=== PATIENT | female | born 1975 | race Caucasian/White ===

== ENCOUNTER 2020-11-11 11:58 | Emergency (ER) | payer OTHER, SELFPAY ==
--- NOTE | ~2020-11-11 | XR_ITS ---
EXAMINATION: XR chest 2V EXAM DATE: 11/11/2020 12:45 INDICATION: Cough, chest tightness. TECHNIQUE: Frontal and lateral projections of the chest obtained and reviewed. There is no prior santosh dy for comparison. FINDINGS: The lungs are clear. There are no pleural effusions. The cardiomediastinal silhouette is within normal limits. There is no pneumothorax suspected. The bones and soft tissues are unremarkab le. IMPRESSION: No acute cardiopulmonary findings. Reviewed, dictated and finalized at location B.
[2020-11-11 12:10] VITALS: BP 128/86; PULSE 83; RESP 16; TEMP 36.2; O2SAT 100
--- NOTE | 2020-11-11 12:38 | ED.URI ---
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 Patient states she has a history longer 10-day history of nasal congestion, PND and with scratchy throat. This was followed by a couple days of nonproductive cough associated with hoarseness, chills /measured 100.2 temperature. No high fever, sputum changes, wheeze, calf pain/edema; no loss of taste/smell, vomiting/diarrhea, S OB, wheezing, nor CP but she has tightness [with coughing]. 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 [id number] testing for strep, RSV, rapid Covid antigen, and influenza are negative. Related Data Home Medications Medication Instructions Recorded Confirmed omeprazole 40 mg PO DAILY 11/11/20 11/11/20 Allergies Allergy/AdvReac Type Severity Reaction Status Date / Time phenobarbital Allergy Unknown Verified 11/11/20 12:21 terbutaline [From Brethine] Allergy Other Verified 11/11/20 12:21 Review of Systems Review of Systems: General/Constitutional: No weight loss,fever Eyes: N0: Redness,discharge Ears/Nose/Throat: No: Epistaxis,ear discharge Respiratory: Denies: Hemoptysis Gastrointestinal: No Vomiting, Bleeding-rectal Skin: No Lumps, eruption Neurologic: No Focal Weakness,Sz Hematologic: Denies: Petechiae/Purpura PMFSH Comments At time of signature, agree with nursing past medical, surgical, and social history. There is no relevant family history pertinent to the presenting complaint Exam Narrative: General Appearance: Well appearing, Well nourished, Conjunctiva clear Ears: Auditory canal normal, TM normal Nose: Rhinorrhea, Mucousal erythema Mouth/Throat: MM moist, Uvula midline, Pharyngeal erythema, Supple, No adenopathy Respiratory: No respiratory distress, Breath sounds equal, Clear to auscultation Cardiovascular: RRR, No JVD Musculoskeletal: Non tender, Normal strength; Warm, Dry, multiple tattoos Neurological: A&O x3, Normal affect Course Course Emergency Course: Films visualized, interpreted by radiologist, agree, normal see report Vital Signs Vital signs: Vital Signs Temperature 97.1 F L 11/11/20 12:10 Pulse Rate 83 11/11/20 12:10 Respiratory Rate 16 11/11/20 12:10 Blood Pressure 128/86 11/11/20 12:10 Pulse Oximetry 100 11/11/20 12:10 Temperature 97.1 F L 11/11/20 12:10 Pulse Rate 83 11/11/20 12:10 Respiratory Rate 16 11/11/20 12:10 Blood Pressure 128/86 11/11/20 12:10 Pulse Oximetry 100 11/11/20 12:10 MDM - URI/Sore Throat Lab Data Labs: Lab Results 11/11/20 Range/Units 12:39 POC SARS CoV-2 Ag Negative (Negative) Discharge Plan Discharge Clinical Impression: Cough Patient Disposition: Home, Self-Care Condition: Stable Instructions: Acute Bronchitis (ED) Prescriptions: New prednisone 20 mg tablet 60 mg PO DAILY Qty: 15 RF: 0 benzonatate [Tessalon Perles] 100 mg capsule 100 mg PO TID Qty: 20 RF: 1 albuterol sulfate [Ventolin HFA] 90 mcg/actuation HFA aerosol inhaler 2 puff INHALATION QID PRN (Reason: shortness of breath or wheezing) Qty: 8.5 RF: 1 doxycycline hyclate 100 mg tablet 100 mg PO BID Qty: 14 RF: 0 montelukast [Singulair] 10 mg tablet 10 mg PO QPM Qty: 20 RF: 2 No Action omeprazole 40 mg capsule,delayed release(DR/EC) 40 mg PO DAILY RF: 0 Other Ambulatory Orders: SARS-CoV-2 RNA, Qual RT-PCR (Routine) Location: Determined by Patient Ordered By: Jeffrey Crespo Follow-up/Referrals: [facility] [place] [place], [Primary Care Provider] - Stand Alone Forms: Work/School Release IP
== END 2020-11-11 13:15 | disposition home or self-care (01) ==
PROVIDERS: Emergency Provider Emergency Medicine
DX: R05 Cough (principal); Z20.822 Contact with and (suspected) exposure to COVID-19; K21.9 Gastro-esophageal reflux disease without esophagitis
CPT/HCPCS: 71046; 87426; 99213; C9803; G0463

== ENCOUNTER 2022-07-16 17:37 | Emergency (ER) | payer OTHER, SELFPAY ==
--- NOTE | 2022-07-16 17:37 | ED.EYEPROB ---
HPI - Eye Problem General Chief complaint: Eye Problems Stated complaint: Rt Eye Time Seen by Provider: 07/16/22 17:37 Source: patient Mode of arrival: ambulatory Limitations: no limitations History of Present Illness HPI Narrative: Patient is a 46-year-old female that presents with right eye pain after cat scratched her eye today around 1630. Reports pain to lateral side of eye and photophobia. Denies any vision changes Related Data Home Medications Medication Instructions Recorded Confirmed omeprazole 40 mg capsule,delayed 40 mg PO DAILY 11/11/20 07/16/22 release Lactobacillus cap PO 07/16/22 07/16/22 acidophilus-Bifidobac.animalis 2.5 billion cell capsule (Daily Probiotic) fluticasone propionate 50 2 spray intranasal DAILY 07/16/22 07/16/22 mcg/actuation nasal spray,suspension loratadine 10 mg tablet (Claritin) 10 mg PO DAILY 07/16/22 07/16/22 Allergies Allergy/AdvReac Type Severity Reaction Status Date / Time phenobarbital Allergy Unknown Verified 11/11/20 12:21 terbutaline [From Brethine] Allergy Other Verified 11/11/20 12:21 Review of Systems Review of Systems: All systems reviewed & are unremarkable except as noted in HPI and below Constitutional: Constitutional: Denies body ache(s), Denies fever(s), Denies headache(s), Denies malaise and Denies weakness Eyes: Eyes: Denies blurry vision, Denies eye discharge, Denies irritation, Denies itchy eyes, Denies loss of vision and Reports eye pain ENT: Denies otalgia, Denies headache(s), Denies nasal discharge, Denies sinus pain and Denies sore throat Cardiovascular: Cardiovascular: Denies chest pain, Denies irregular heart rhythm and Denies dyspnea Respiratory: Respiratory: Denies dyspnea Gastrointestinal: Gastrointestinal: Denies abdominal pain, Denies diarrhea, Denies nausea and Denies vomiting Musculoskeletal: Musculoskeletal: Denies back pain, Denies myalgias and Denies arthralgias Integumentary/Breasts: Skin/Breast: Denies pruritus and Denies rash Neurologic: Denies headache(s), Denies loss of vision and Denies weakness Psychiatric: Psychiatric: Reports no additional psychiatric complaints Allergic/Immunologic: Allergic/Immunologic: Reports itchy eyes PMFSH Comments At time of signature, agree with nursing past medical, surgical, social and family history. There is no relevant family history pertinent to the presenting complaint. Exam Const: General: cooperative, healthy appearing, comfortable, no acute distress and well nourished Nutritional Appearance: well nourished Orientation/consciousness: patient oriented x3 Limitations: no limitations HENMT: Head: normal to inspection, normocephalic and atraumatic Ears: external ears normal Face/Nose/Sinus: Normal external nose present, normal facial exam and face symmetric Face and sinus: normal facial exam and face symmetric Mouth: Yes lip normal Eyes: General: appearance normal, both eyes and all related structures Visual Sewell: normal visual sewell by confrontation Alignment and Position: alignment normal and position normal Periorbital: periorbital findings normal Eyelids: eyelids normal Conjunctivae: conjunctivae normal Sclera: scleral abnormality right scleral tenderness Cornea: corneas normal and fluorescein used Pupils: Equal, round and reactive pupils present EOM: EOMs intact bilaterally Direct Ophthalmoscopy: photophobia Other: No hyphema, no foreign body under the lids. Eyes/upper lids images: 1. abrasion found due to uptake on fluorescein exam. Neck: Neck: normal visual inspection, full ROM, no lymphadenopathy and no meningeal signs Chest: Chest palpation & inspection: normal inspection of the chest Resp: Effort & Inspection: normal respiratory effort and able to speak in complete sentences Auscultation: clear to auscultation bilaterally Cardio: Rate: regular rate Rhythm: regular rhythm Heart sounds: S1 normal heart sound present and S2 norm
[2022-07-16 17:51] VITALS: BP 125/73; PULSE 95; RESP 18; TEMP 36.2; O2SAT 100
== END 2022-07-16 18:00 | disposition home or self-care (01) ==
PROVIDERS: Emergency Provider Nurse Practitioner Family
DX: S05.8X1A Other injuries of right eye and orbit, initial encounter (principal); W55.03XA Scratched by cat, initial encounter; K21.9 Gastro-esophageal reflux disease without esophagitis
CPT/HCPCS: 99213; A9270; G0463

== ENCOUNTER 2022-07-22 08:48 | Emergency (ER) | payer OTHER, SELFPAY ==
--- NOTE | ~2022-07-22 | XR_ITS ---
Left elbow Technique: AP, oblique, and lateral views were obtained. Clinical History: Pain Findings: No acute fracture or dislocation is seen. Osseous alignment is anatomic. Joint spaces are p reserved. There is no displacement of the fat pads, and soft tissues are unremarkable. Impression: Unremarkable radiographs. Reviewed, dictated and finalized at location . Impression: Unremarkable radiographs.
--- NOTE | 2022-07-22 08:50 | ED.UPPEXIN ---
HPI - Extremity Injury (Upper) General Chief Complaint: Extremity Injury, Upper Stated Complaint: Lt Elbow Pain Time Seen by Provider: 07/22/22 08:50 Source: patient Mode of arrival: ambulatory Limitations: no limitations History of Present Illness HPI narrative: Patient is a 38-year-old female who presents with left elbow pain and bruising after fall on Monday. Patient states the hip and shoulder have all improved with the elbow continues to be painful. Has been using ice and elevation along with Tylenol and ibuprofen with only mild relief. Patient denies any numbness or tingling to hand. Still has normal range of motion with pain Related Data Home Medications Medication Instructions Recorded Confirmed omeprazole 40 mg capsule,delayed 40 mg PO DAILY 07/22/22 07/22/22 release Allergies Allergy/AdvReac Type Severity Reaction Status Date / Time phenobarbital AdvReac Severe Stopped Verified 07/22/22 08:52 Breathing terbutaline [From Brethine] AdvReac Intermediate Palpitation Verified 07/22/22 08:52 s Review of Systems Review of Systems: All systems reviewed & are unremarkable except as noted in HPI and below Constitutional: Constitutional: Denies body ache(s), Denies chills, Denies fatigue, Denies fever(s), Denies headache(s), Denies malaise and Denies weakness Eyes: Eyes: Denies blurry vision, Denies irritation and Denies loss of vision ENT: Denies otalgia, Denies headache(s), Denies nasal discharge, Denies sinus pain and Denies sore throat Cardiovascular: Cardiovascular: Denies chest pain, Denies irregular heart rhythm and Denies dyspnea Respiratory: Respiratory: Denies dyspnea Gastrointestinal: Gastrointestinal: Denies abdominal pain, Denies melena, Denies hematochezia, Denies diarrhea, Denies nausea and Denies vomiting Musculoskeletal: Musculoskeletal: Denies back pain, Denies myalgias and Reports arthralgias Integumentary/Breasts: Skin/Breast: Denies pruritus and Denies rash Neurologic: Denies headache(s), Denies loss of vision and Denies weakness Psychiatric: Psychiatric: Reports no additional psychiatric complaints Endocrine: Endocrine: Denies fatigue PMFSH Comments At time of signature, agree with nursing past medical, surgical, social and family history. There is no relevant family history pertinent to the presenting complaint. Exam Const: General: cooperative, healthy appearing, comfortable, no acute distress and well nourished Nutritional Appearance: well nourished Orientation/consciousness: patient oriented x3 Limitations: no limitations HENMT: Head: normal to inspection, normocephalic and atraumatic Ears: hearing grossly normal bilaterally and external ears normal Face/Nose/Sinus: Normal external nose present, normal facial exam and face symmetric Face and sinus: normal facial exam and face symmetric Mouth: Yes lip normal Eyes: General: appearance normal, both eyes and all related structures Alignment and Position: alignment normal and position normal Periorbital: periorbital findings normal Eyelids: eyelids normal Pupils: Equal, round and reactive pupils present EOM: EOMs intact bilaterally Neck: Neck: normal visual inspection, full ROM and supple Chest: Chest palpation & inspection: normal inspection of the chest Resp: Effort & Inspection: normal respiratory effort and able to speak in complete sentences Auscultation: clear to auscultation bilaterally Cardio: Rate: regular rate Rhythm: regular rhythm Heart sounds: S1 normal heart sound present and S2 normal heart sound present GI: Inspection: normal to inspection Skin: General skin exam: normal color and no rashes or lesions noted Neuro: General: patient oriented x3 and moves all extremities Cranial nerves: Yes Equal, round and reactive pupils present Speech: normal speech Gait exam (Neuro): Normal gait present Extrem: General: normal to inspection, full ROM and no edema Left upper extremity: shoulder/upp
[2022-07-22 09:04] VITALS: BP 124/89; PULSE 75; RESP 18; TEMP 36.2; O2SAT 100
== END 2022-07-22 09:20 | disposition home or self-care (01) ==
PROVIDERS: Emergency Provider Nurse Practitioner Family
DX: S50.02XA Contusion of left elbow, initial encounter (principal); W19.XXXA Unspecified fall, initial encounter; K21.9 Gastro-esophageal reflux disease without esophagitis; Z86.16 Personal history of COVID-19
CPT/HCPCS: 73080; 99213; G0463

== ENCOUNTER 2024-03-09 09:22 | Emergency (ER) | payer OTHER, SELFPAY ==
--- NOTE | ~2024-03-09 | XR_ITS ---
EXAMINATION: XR chest 2V DATE: 03/09/2024 09:36 INDICATION: Cough. TECHNIQUE: Frontal and lateral views of the chest were obtained. COMPARISON: Chest single view 12/23/2020 FINDINGS: There is no pneumonia, pleural effusion, or pneumothorax. The heart size is normal. IMPRESSION: 1. No acute cardiopulmonary disease. Reviewed, dictated and finalized at location A. 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
--- NOTE | 2024-03-09 09:25 | ED.URI ---
HPI - URI/Sore Throat General Chief Complaint: Upper Respiratory Infection Stated Complaint: cough Time Seen by Provider: 03/09/24 09:25 Source: patient Mode of arrival: ambulatory Limitations: no limitations History of Present Illness HPI Narrative: Patient is a 48-year-old female who presents with over 2 weeks of worsening cough, chest congestion and hoarness. Patient had COVID over the summer and has had some long COVID symptoms. Patient reports coughing fits throughout the day and night. Patient has been taking Flonase, Mucinex and other [id number]-[id number] medications with no relief. Denies any fever, chills, nausea, vomiting, diarrhea. Related Data Home Medications ?Medication ?Instructions ?Recorded ?Confirmed ?Last Taken ?Type omeprazole 40 mg capsule,delayed 40 mg PO DAILY 07/22/22 07/22/22 Unknown History release Lactobacillus acidophilus 10 100 mmu cells PO DAILY 03/09/24 Unknown History billion cell capsule (NewFlora) cholecalciferol (vitamin D3) 50 2,000 unit PO DAILY 03/09/24 Unknown History mcg (2,000 unit) capsule (D3-2000) loratadine 10 mg tablet (Claritin) 10 mg PO DAILY 03/09/24 Unknown History Allergies Allergy/AdvReac Type Severity Reaction Status Date / Time iohexol (From contrast - CT, Allergy Severe Anaphylaxis Verified 03/09/24 09:40 X-RAY) shellfish derived Allergy Severe Anaphylaxis Verified 03/09/24 09:40 phenobarbital AdvReac Severe Stopped Verified 03/09/24 09:40 Breathing terbutaline (From Brethine) AdvReac Intermediate Palpitation Verified 03/09/24 09:40 s Review of Systems Review of Systems: All systems reviewed & are unremarkable except as noted in HPI and below Constitutional: Constitutional: Denies body ache(s), Denies chills, Denies fatigue, Denies fever(s), Denies headache(s), Denies malaise and Denies weakness Eyes: Eyes: Denies blurry vision, Denies itchy eyes and Denies loss of vision ENT: Denies otalgia, Denies headache(s), Reports hoarseness, Reports nasal congestion, Denies sinus pain and Denies sore throat Cardiovascular: Cardiovascular: Denies chest pain, Denies irregular heart rhythm and Denies dyspnea Respiratory: Respiratory: Reports chest congestion, Reports cough and Denies dyspnea Gastrointestinal: Gastrointestinal: Denies abdominal pain, Denies diarrhea, Denies nausea and Denies vomiting Musculoskeletal: Musculoskeletal: Denies back pain, Denies myalgias and Denies arthralgias Integumentary/Breasts: Skin/Breast: Denies pruritus and Denies rash Neurologic: Denies headache(s), Denies loss of vision and Denies weakness Psychiatric: Psychiatric: Reports no additional psychiatric complaints Endocrine: Endocrine: Denies fatigue Allergic/Immunologic: Allergic/Immunologic: Denies itchy eyes PMFSH Comments At time of signature, agree with nursing past medical, surgical, social and family history. There is no relevant family history pertinent to the presenting complaint. Exam Const: General: cooperative, healthy appearing, comfortable, no acute distress and well nourished Nutritional Appearance: well nourished Orientation/consciousness: patient oriented x3 Limitations: no limitations HENMT: Head: normal to inspection, normocephalic and atraumatic Ears: hearing grossly normal bilaterally, external ears normal, TM's normal bilaterally, EAC's normal and no periauricular adenopathy Face/Nose/Sinus: Normal external nose present, Abnormal mucous membranes and turbinates present erythematous bilateral and diffuse, normal facial exam, sinuses nontender and face symmetric Face and sinus: normal facial exam, sinuses nontender and face symmetric Mouth: Yes Normal oral and palatal mucosa present, Yes lip normal, Yes tongue normal, Yes Normal salivary glands and ducts present, Yes oropharynx normal and Yes moist mucous membranes Teeth and gingiva: dentition normal Throat: posterior oropharynx normal, tonsils normal and uvula midline Eyes: General: appearance normal, both eyes and all related structures Alignment and Position: alignment normal and position normal Periorbital: periorbital findings normal Eyelids: eyelids normal Pupils: Equal, round and reactive pupils present Neck: Neck: normal visual inspection, full ROM, no lymphadenopathy and supple Chest: Chest palpation & inspection: normal inspection of the chest and normal palpation of entire chest wall Resp: Effort & Inspection: normal respiratory effort, able to speak in complete sentences and Actively coughing actively coughing Auscultation: clear to auscultation bilaterally, no crackles, no rales, no rhonchi and no wheezes Cardio: Rate: regular rate Rhythm: regular rhythm Heart sounds: S1 normal heart sound present and S2 normal heart sound present GI: Inspection: normal to inspection Skin: General skin exam: normal color and no rashes or lesions noted Neuro: General: patient oriented x3 and moves all extremities Cranial nerves: Yes Equal, round and reactive pupils present Speech: normal speech Gait exam (Neuro): Normal gait present Extrem: General: normal to inspection, full ROM and no edema Psych: Appearance: grossly normal and well kempt Mental Status: mental status grossly normal Speech and movement: Normal speech and movement present Affect: normal affect Attitude: cooperative Thought process: Normal thought process present Course Course Emergency Course: Discharge instructions reviewed with patient, as well as provided in writing per nursing staff. The instructions also include specific and strict return/GO TO THE ER as well as f/u information. All questions have been answered, and the patient deny any further questions with discharge and discharge plan. Portions of this record may have been created with voice recognition software Level of Care: Express Care Visit Vital Signs Vital signs: Vital Signs Temperature 36.2 C L 03/09/24 09:30 Pulse Rate 75 03/09/24 09:30 Respiratory Rate 18 03/09/24 09:30 Blood Pressure 123/80 03/09/24 09:30 Pulse Oximetry 100 03/09/24 09:30 Oxygen Delivery Room Air 03/09/24 09:30 Temperature 36.2 C L 03/09/24 09:30 Pulse Rate 75 03/09/24 09:30 Respiratory Rate 18 03/09/24 09:30 Blood Pressure 123/80 03/09/24 09:30 Pulse Oximetry 100 03/09/24 09:30 Oxygen Delivery Room Air 03/09/24 09:30 Reviewed MDM - URI/Sore Throat MDM Narrative Medical decision making narrative: Pt well hydrated appearing, in no respiratory distress, hemodynamically stable. Recommend supportive care. The patient is stable at time of discharge the clinical impression was discussed and the patient was given the opportunity to ask questions, which were addressed as completely as possible given the information available at present. Anticipatory guidance and return to care precautions were discussed and the importance of primary care follow-up was stressed and encouraged. The patient voiced understanding of the plan, indications to return, and the need for follow-up. Differential diagnosis considered: Nazario virus, strep pharyngitis, allergic rhinitis, upper respiratory tract infection, sinusitis, rhinosinusitis, nasopharyngitis. viral pharyngitis, otitis media, otitis externa, otitis effusion, foreign body, cerumen impaction, viral syndrome, and influenza.? Exam findings show no acute concerns or changes; patient is non-toxic appearing and is in no distress.? Patient is appropriate for outpatient treatment and follow-up.? Medical Records Attestation: I reviewed the patient's medical records. Imaging Data Radiologist's impression: EXAMINATION: XR chest 2V DATE: 03/09/2024 09:36 INDICATION: Cough. TECHNIQUE: Frontal and lateral views of the chest were obtained. COMPARISON: Chest single view 12/23/2020 FINDINGS: There is no pneumonia, pleural effusion, or pneumothorax. The heart size is normal. IMPRESSION: 1. No acute cardiopulmonary disease. Discharge Plan Discharge Clinical Impression: Upper respiratory infection with cough and congestion Patient Disposition: Home, Self-Care Condition: Stable Instructions: Upper Respiratory Infection (ED) Additional Instructions: Take antibiotic as prescribed. Take steroids in the morning with food. Use liquid cough medicine as needed, it will make you drowsy due to containing codeine. Use inhaler with spacer as needed. Other symptomatic treatments include: -Alternate Tylenol and Motrin per package directions for fever or pain. -Antihistamine medication such as Benadryl at night and Zyrtec/Claritin/Kitty during the day can help improve symptoms. -Use Flonase twice a day for 5 days then daily to help reduce the inflammation and dry up your sinuses. -You can also use Sudafed or Mucinex. Be sure to drink plenty of water with these medications at least 8 ounces with every dose and it is important to drink 8 to 10 glasses of water per day. Water is a natural decongestant -Eat and drink things that are easy to swallow, like tea or soup, or popsicles. -Oral rinses such as: Salt water gargles and/or may use topical anesthetic (eg. Chloraseptic spray) or lozenges to relieve dryness or throat pain). -Frequent hand washing or hand casting operator is one of the best ways to prevent spread of infection. -Using a vaporizer or humidifier at night will also help thin secretions and help with coughing up phlegm. -Follow up with primary care provider in 3-5 days if condition is not improving - For new or worsening symptoms go directly to the nearest ER Patient Language: Armenian Prescriptions: New prednisone 20 mg tablet See Rx Instructions .ROUTE .COMPLEX Qty: 9 0RF Rx Instructions: 40 mg daily x3 days, 20 mg daily x3 days doxycycline monohydrate 100 mg tablet 100 mg PO BID 10 Days Qty: 20 0RF albuterol sulfate 90 mcg/actuation HFA aerosol inhaler 2 puff inhalation QID PRN (Reason: shortness of breath or wheezing) Qty: 6.7 0RF (DME) Aerochamber MV Spacer See Rx Instructions .Route Qty: 1 0RF Rx Instructions: As directed codeine-guaifenesin 10-100 mg/5 mL liquid 5 ml PO Q6H 5 Days Qty: 100 0RF No Action omeprazole 40 mg capsule,delayed release(DR/EC) 40 mg PO DAILY NewFlora 10 billion cell capsule 100 mmu cells PO DAILY loratadine [Claritin] 10 mg tablet 10 mg PO DAILY cholecalciferol (vitamin D3) [D3-2000] 50 mcg (2,000 unit) capsule 2,000 unit PO DAILY Follow-up/Referrals: PHYSICIAN,P[employer]ER BAG [facility]KER [Primary Care Provider] - Time of Disposition: 09:49
[2024-03-09 09:30] VITALS: BP 123/80; PULSE 75; RESP 18; TEMP 36.2; O2SAT 100
--- OUTSIDE RECORDS SUMMARY | 2024-03-14 08:43 | XMS_ITS | Clinical Summary ---
Author Organization [facility] Address [address] [place] [address]. [place] [address] [place] [address] Care Team Providers Care Stitch Cleaner Name Role Phone Narinder Sung MD Unavailable [phone] None, Provider MD Primary Care Provider Unavaila ble Allergies Active Allergy Reactions Criticality Noted Date Comments Terbutaline Unknown 08/12/2022 Iodine Unknown 08/12/2022 Phenobarbital Unknown 08/12/2022 Medications dicyclomine (BENTYL) 20 MG tablet Take 1 tablet (20 mg total) by mouth every 6 (six) hours. 120 tablet 08/12/2022 Active pantoprazole EC (PROTONIX) 40 MG tablet Take 1 tablet (40 mg total) by mouth daily. 30 tablet 08/12/2022 Active Social History Tobacco Use Types Packs/Day Years Used Date Smoking Tobacco: Never Smokeless Tobacco: Never Tobacco Cessation:Counseling Given: Not Answered Alcohol Use Standard Drinks/Week Comments Not Currently 0 (1 standard drink = 0.6 oz pur e alcohol) Comments Unknown Sex and Gender Information Value Date Recorded Sex Assigned at Not on file Legal Sex Female 8:38 AM CDT Gender Identity Not on file Sexual Orientation Not on file Last Filed Vital Signs Vital Sign Reading Time Taken Comments Blood Pressure 116/76 08/12/2022 4:30 PM CDT Pulse 87 08/12/2022 4:30 PM CDT Temperature 36.9 ??C (98.4 ??F) 08/12/2022 12:18 PM C DT Respiratory Rate 19 08/12/2022 4:35 PM CDT Oxygen Saturation 99% 08/12/2022 4:30 PM CDT Inhaled Oxygen Concentration - - Weight 84.5 kg (186 lb 4.6 oz) 08/12/2022 12:18 PM CDT Height 167.6 cm (5' 6 ) 08/12/2022 12:18 PM CDT Body Mass Index 30.07 08/12/2022 12:18 PM CDT Plan of Treatment Health Maintenance Due Date Last Done Comments Cervical Cancer Screening Pa p Smear (Age 30 to 64) Every 3 Years 1973 Colorectal Cancer Screening Colonoscopy (10 Years) 1973 Annual Physical 1976 Hepatitis C 08/17/1991 Hepatitis B Vaccines (1 of 3 - 19+ 3-dose series) 1992 Cervical Cancer Screening Pa p with HPV Testing (Age 30 to 64) Every 5 Years 08/17/2003 Cervical Cancer Screening wi th HPV 08/17/2003 Mammogram Screening 2013 Zoster Vaccines (1 of 2) 08/17/2023 COVID-19 Vaccine (2023-2 5 season) 2023 06/30/2020, 06/04/2020 Influenza Adult (#1) 2023 12/04/2019, 11/21/2018 DTaP, Tdap and Td Vaccines ( 2 - Tdap) 01/10/2029 01/10/2019 Meningococcal B Vaccine Aged Out No l onger eligible based on patient's age to complete this topic Meningococcal Vaccine Aged Out No daniel estefany eligible based on patient's age to complete this topic Pneumococcal Vaccine: Pediatrics (0 to 5 Years) and At-Risk Patients (6 to 64 Years) Aged Out No longer eligible b ased on patient's age to complete this topic RSV Immunizations Under 20 Months Aged Out No longer eligible b ased on patient's age to complete this topic Insurance [place] [place] [employer] [facility] [employer] Care Teams Stitch Cleaner Relationship Specialty Start Date End Date None, Provider, PCP - General UNKNOWN PHYSICIAN SPECIALTY 08/12/22 Narinder Sung MD Rachael Clearance Representative CARDIOVASCULAR DISEASE 07/22/15
== END 2024-03-09 09:54 | disposition home or self-care (01) ==
PROVIDERS: Emergency Provider Nurse Practitioner Family
DX: J06.9 Acute upper respiratory infection, unspecified (principal); R05.9 Cough, unspecified; K21.9 Gastro-esophageal reflux disease without esophagitis; Z86.16 Personal history of COVID-19
CPT/HCPCS: 71046; 99213; G0463

== ENCOUNTER 2024-10-04 18:05 | Emergency (ER) | payer OTHER, SELFPAY ==
[2024-10-04 18:08] VITALS: BP 114/75; PULSE 110; RESP 14; TEMP 36.9; O2SAT 100
--- OUTSIDE RECORDS SUMMARY | 2024-10-04 18:09 | XMS_ITS ---
Author Name [facility] ([place]) Organization Department of [facility] ([place]) Address [address] [place] [address] Care Team Providers Care Tipple Operator Name Role Phone JOESPH WILLARD Primary Care Provider Unavailabl e Selected Encounter This section includes the information on record at [place] for the Encounter. Date/Time Encounter Type Encounter Description Reason Provider Source Aug 30, 2024 03:30 PM OFFICE O/P EST MOD 30 MIN PRIMARY CARE/MEDICINE ICD-10-CM G43.009 Migraine w/o aura, not intractable, w/o status migrainosus WILLARD,JOESPH A [facility] Encounter Template Text not used by [place] Assessments - Encounter Diagnoses This section includes the primary and secondary diagnoses documented for the Encounter. Date/Time Primary/Secondary Diagnosis Diagnosis Name Provider Source Aug 30, 2024 04:43 PM PRIMARY Migraine w/o aura, not intractable, w/o status migrainosus WILLARD,JOESPH A [facility] Aug 30, 2024 04:43 PM SECONDARY Gastro-esophageal reflux disease without esophagitis WILLARD,JOESPH A [facility] Plan of Treatment: Future Appointments (+ 6 months) and Future Tests (+/- 45 days) The Plan of Treatment section includes future care activities for the patient from all [facility] treatment[facility]. This section includes future appointments and future orders which are active, pending or scheduled. Future Appointments This section includes appointments that were scheduled to occur 6 months from the date of the Encounter, up to a maximum of 20 appointments. The data comes from all [facility]. Appointment Date/Time Appointment Type Appointme nt Facility Name Sep 13, 2024 09:00 AM AMBULATORY - NONE [facility] Sep 13, 2024 10:00 AM AMBULATORY - MEDICINE [facility] Sep 24, 2024 03:30 PM AMBULATORY - NONE [facility] Nov 01, 2024 09:30 AM AMBULATORY - MEDICINE [facility] Active, Pending, and Scheduled Orders This section includes a listing of several types of active, pending, and scheduled orders, including clinic medications orders, diagnostic test orders, procedure orders and consult orders; where the start date of the order is 45 days before the date of the Encounter or 45 days after the date of theEncounter. The data comes from all [facility]. Test Date/Time Test Type Test Details Facility Name Aug 30, 2024 04:41 PM Consult Order COMMUNITY CARE-STL SLEEP STUDY Cons Radio Announcer's Choice [facility] Oct 02, 2024 12:00 AM Laboratory - Chemi stry Order TSH (MA-PB) GOLD/RED SST SERUM SP [facility] Oct 02, 2024 12:00 AM Laboratory - Chemi stry Order FREE T4 (MA-PB) GOLD/RED SST SERUM SP [facility] Oct 02, 2024 12:00 AM Laboratory - Chemi stry Order TOTAL T3 (STL-PB) GREEN LI-HEP PLASMA SP [facility] Oct 02, 2024 12:00 AM Laboratory - Chemi stry Order PT/INR NEW (STL-MA) BLOOD PLASMA SP [facility] Oct 02, 2024 08:41 AM Consult Order ENDO THYRO ID NEEDLE ASPIRATION BIOPSY OUTPATIENT [facility] Radio Announcer[facility] Choice [facility] Oct 04, 2024 07:49 AM Consult Order COMMUNITY CARE-STL RAD INTERVENT Cons Radio Announcer's Choice [facility] Lab Results: +/- 30 days of the encounter This section includes the Chemistry and Hematology Lab Results on record with [place] for the patient. Radiology Reports and Pathology Reports are provided separately, in subsequent sections. Lab Results This section contains the Chemistry/Hematology Results that were resulted 30 days before or 30 daysafter the date of the Encounter. Date/Time Source Result Type Result - Unit Interpretation Reference Range Specimen Type Comment Sep 05, 2024 10:46 AM [facility] FSH (STL-MA) SERUM Specimen Type: SERUM Comment: Unable to flag abnormal result(s), please refer to reference range(s) below: Adult female reference ranges for FSH: Follicular Phase: 2.5-10.2 mIU/mL Mid-Cycle Peak: 3.1-17.7 mIU/mL Luteal Phase: 1.5-9.1 mIU/mL Postmenopausal: 23.0-116.3 mIU/mL Test Performed by [facility], [place], [address] [place] [address] Dave Hector M.D., Ph.D., Director of Laboratories , [facility] [id number] Ordering Provider: JOESPH WILLARD Report Released Date/Time: Aug 30, 2024 04:43 PM Reporting Lab: [facility] [address] [facility] [address] Performing Lab: [facility] [address] [place] [address] FSH ([facility]) 34.0 m[IU]/mL Sep 05, 2024 10:46 AM [facility] ESTRADIOL SERUM Specimen Type: SERUM Comment: Unable to flag abnormal result(s), please refer to reference range(s) below: Females: Follicular Phase: 19 - 144 pg/mL Mid-Cycle: 64 - 357 pg/mL Luteal Phase: 56 - 214 pg/mL Post-Menopausal: <= 31 pg/mL Reference range established on post-pubertal patient population. No pre-pubertal reference range established using this assay. For any patients for whom low Estradiol levels are anticipated (e.g. males, pre-pubertal children, and hypogonadal/post-menopausal females), the [place] Estradiol, Ultrasensitive, LCMSMS assay is recommended (order code 77984). Please note: Patients being treated with the drug fulvestrant [Faslodex(R)] have demonstrated significant interference in immunoassay methods for estradiol measurement. The cross reactivity could lead to falsely elevated estradiol test results leading to an inappropriate clinical assessment of estrogen status. [employer] order code 34593-Yaxaraash, Ultrasensitive LC/MS/MS demonstrates negligible cross reactivity with fulvestrant. Test Performed by [facility], [facility], [address] [place] [address] Dave Hector M.D., Ph.D., Director of Laboratories , [place] [id number] Ordering Provider: JOESPH WILLARD Report Released Date/Time: Aug 30, 2024 04:43 PM Reporting Lab: [facility] [address] [place] [phone] Performing Lab: [facility] [id number] [place] [address] ESTRADIOL 97 pg/mL Sep 05, 2024 10:46 AM [facility] COMPREHENSIVE METABOLIC PANEL PLASMA Specimen Type: PLASMA Comment: No hemolysis noted. Ordering Provider: JOESPH WILLARD Report Released Date/Time: Aug 30, 2024 04:34 PM Reporting Lab: [facility] [address] [place] [phone] Performing Lab: [address] [address] CREATININE 0.74 mg/dL 0.6-1.1 UREA NITROGEN 20.0 mg/dL 9.0-25.0 GLUCOSE 76 mg/dL 72-99 SODIUM 136 meq/L 136-145 POTASSIUM 3.8 meq/L 3.5-5 CHLORIDE 103 meq/L 98-107 CARBON DIOXIDE 26 meq/L 22-31 CALCIUM 9.4 mg/dL 8.4-10.4 PROTEIN 7.5 g/dL 6-8.6 ALBUMIN 4.2 g/dL 3.4-5 TOTAL BILIRUBIN 0.3 mg/dL 0.2-1.2 ALKALINE PHOSPHATASE 63 U/L 40-150 AST/SGOT 37 U/L H 5-34 ALT/SGPT 12 U/L 8-40 EGFR (CKD-EPI 2020) 97.9 >60 Sep 05, 2024 10:46 AM [facility] LIPID PANEL (STL) PLASMA Specimen Type: PLASM A Comment: No hemolysis noted. Ordering Provider: JOESPH WILLARD Report Released Date/Time: Aug 30, 2024 04:34 PM Reporting Lab: [facility] [address] [place] [phone] Performing Lab: [address] [address] CHOLESTEROL 213 mg/dL H 0-200 TRIGLYCERIDE 132 mg/dL 0-150 CALCULATED LDL 132 mg/dL HDL(New) 55 mg/dL >40 Sep 05, 2024 10:46 AM [facility] CBC BLOOD Specimen Type: BLOOD No comment entered. Ordering Provider: JOESPH WILLARD Report Released Date/Time: Aug 30, 2024 04:34 PM Reporting Lab: [address] [address] Performing Lab: [address] [address] WBC 7.4 10*3/uL 3.6-11.2 RBC 4.58 10*6/uL 3.60-5.00 HGB 13.5 g/dL 11.0-14.9 HCT 42.9 32.6-43.4 MCV 93.7 fL 80.0-100.0 MCH 29.5 pg 27.0-34.0 MCHC 31.5 g/dL L 33.0-36.0 PLT 248 10*3/uL 150-400 MPV 12.4 fL H 7.5-11.2 RDW 13.2 11.8-15.1 LYMPHOCYTES, AUTO % 26 MONOCYTES, AUTO % 5 NEUTROPHILS, AUTO % 67 EOSINOPHILS, AUTO % 1 BASOPHILS, AUTO % 0 LYMPHOCYTES, ABSOLUTE 1.93 10*3/uL 0.77- 4.50 MONOCYTES, ABSOLUTE 0.37 10*3/uL 0.19-0. 80 NEUTROPHILS, ABSOLUTE 4.97 10*3/uL 2.10- 8.00 EOSINOPHILS, ABSOLUTE 0.07 10*3/uL 0.00- 0.60 BASOPHILS, ABSOLUTE 0.03 10*3/uL 0.00-0. 20 Sep 05, 2024 10:46 AM [facility] HGA1C BLOOD Specimen Type: BLOOD No comment entered. Ordering Provider: JOESPH WILLARD Report Released Date/Time: Aug 30, 2024 04:34 PM Reporting Lab: [facility] [address] [facility] [address] Performing Lab: [address] [address] HGA1C 5.4 4.0-6.0 Sep 05, 2024 10:46 AM [facility] TSH W/ REFLEX FT4 (STL) PLASMA Specimen Type: PLASMA No comment entered. Ordering Provider: JOESPH WILLARD Report Released Date/Time: Aug 30, 2024 04:34 PM Reporting Lab: [facility] [address] [place] [phone] Performing Lab: [address] [address] TSH 0.817 u[IU]/mL 0.47-5 Sep 05, 2024 10:46 AM [facility] VITAMIN D, 25-HYDROXY SERUM Specimen Type: SE RUM No comment entered. Ordering Provider: JOESPH WILLARD Report Released Date/Time: Aug 30, 2024 04:34 PM Reporting Lab: [facility] [address] [place] [phone] Performing Lab: [address] [address] VITAMIN D, 25-HYDROXY 31.2 ng/mL 30-96 Vital Signs: All taken on the encounter date This section contains inpatient and outpatient Vital Signs collected on the date of the Encounter. Date/Time Temperature Pulse Blood Pressure Respiratory Rate SP02 Pain Height Weight Body Mass Index Source Aug 30, 2024 03:18 PM 97.8 F 84 /min 112/77 mm[Hg] 18 /min 97 % 0 66 in 188 lb 30 [facility] Social History: Smoking Status (Most current) and Tobacco Use (All prior to encounter date) This section includes the most current, and the historical, smoking and tobacco- related health factors from the [place] facility where the Encounter took place. Current Smoking Status This section includes the most current smoking, or tobacco-related health factor, from the [place] facility where the Encounter took place. Date/Time Current Smoking Status Comment Facil ity Aug 30, 2024 03:30 PM VA-TOBACCO USE FOR ARSEN CIGARETTES . [facility] Tobacco Use History This section includes a history of the smoking, or tobacco-related health factors, that were collected on or before the date of the Encounter. The data comes from the [place] facility where the Encounter took place. Date/Time Smoking Status/Tobacco Use Comment F acility Aug 30, 2024 03:30 PM VA-TOBACCO USE FOR ARSEN CIGARETTES . [facility] Aug 31, 2023 09:30 AM VA-TOBACCO FORMER USER . [facility] Aug 31, 2023 09:30 AM VA-TOBACCO QUIT 15 YRS OR MORE . [facility] Oct 20, 2021 02:00 PM VA-TOBACCO FORMER USER . [facility] Oct 20, 2021 02:00 PM VA-TOBACCO QUIT 15 YRS OR MORE . [facility] Nov 26, 2019 09:00 AM VA-TOBACCO FORMER USER . [facility] Nov 26, 2019 09:00 AM VA-TOBACCO QUIT 15 YRS OR MORE . [facility] Radiology Reports: +/- 30 days of the encounter Radiology Reports For cases when an order for radiology services may have been completed prior to the date of the Encounter, the report list includes the Radiology Reports that were completed up to 30 days before dateof the Encounter. For cases when an order for radiology services may have been completed after the date of the Encounter, the report list also includes the Radiology Reports that were completed up to30 days after date of the Encounter. The data comes from all [place] treatment facilities. Date/Time Radiology Report Provider Source Sep 24, 2024 02:07 PM US THYROID (NECK SOFT-TISSUE): KELDALLINCON RADHA [id number] F Exm Date: SEP 24, 2024@14:07 Req Phys: JOESPH WILLARD Pat Loc: [facility]-CT FLASH AM (Req'g Loc) Img Loc: [facility]-ULTRASOUND [facility] Service: Unknown Screen: Patient answered no [facility] [address] [address] (Case [id number] COMPLETE) US THYROID (NECK SOFT-TISSUE) (US Detailed) CPT:30463 Reason for Study: incidental finding right sided thyroid nodule on ct chest Clinical History: Report Status: Verified Date Reported: SEP 24, 2024 Date Verified: SEP 24, 2024 Heritage Consultant E-Sig:/ES/MANN COOK Report: Exam: US THYROID (NECK SOFT-TISSUE) Case: [id number] History: Technique: Real-time ultrasound examination of the thyroid was obtained in transverse and longitudinal projections. Limited color Doppler exam was also performed. TI-RADS classification was utilized. Prior thyroid ultrasound: No prior thyroid ultrasound available for comparison. CT chest without contrast dated 09/13/2024 was reviewed. Right thyroid lobe nodules as detailed below. Background thyroid parenchyma is normal in echogenicity and vascularity bilaterally. Right lobe: 4.4 x 1.9 x 1.3 cm. Left lobe: 3.4 x 1.2 x 1.1 cm. Isthmus: 1 mm. Nodule #1: A 2.1 x 1.1 x 1.0 cm nodule in the right superior thyroid lobe. Composition: Solid (2 points) Echogenicity: Isoechoic (1 point) Shape: Wider than tall (0 points) Margin: Smooth (0 points) Echogenic foci: Punctate echogenic foci (3 points) Recommendation: TR4; fine needle aspiration recommended. Nodule #2: A 1.1 x 0.9 x 0.7 cm nodule in the right mid thyroid lobe. Composition: Solid (2 points) Echogenicity: Very hypoechoic (3 points) Shape: Wider than tall (0 points) Margin: Smooth (0 points) Echogenic foci: None (0 points) Recommendation: TR4; follow-up thyroid sonogram in 1, 2, 3, and 5 years to document stability. Nodule #3: A 1.2 x 1.1 x 0.9 cm nodule in the right inferior thyroid lobe. Composition: Solid (2 points) Echogenicity: Hypoechoic (2 points) Shape: Wider than tall (0 points) Margin: Smooth (0 points) Echogenic foci: Punctate echogenic foci (3 points) Recommendation: TR4; follow-up thyroid sonogram in 1, 2, 3, and 5 years to document stability. No abnormal cervical lymph nodes are seen. Impression: 1. TR4 nodule measuring up to 2.1 cm in the right superior thyroid lobe. Fine needle aspiration is recommended. 2. Two additional TR4 nodules in the right mid and inferior thyroid lobe. Follow-up thyroid sonogram and 1, 2, 3 and 5 years is recommended to document stability. I, Mann Cook, have reviewed the images and report and concur with these findings. Primary Interpreting Staff: MANN COOK, RADIOLOGIST ([facility] Consultant) Primary Interpreting Resident: GOPAL YU, Resident Physician /MANN HENNING [facility] Sep 13, 2024 08:[address] THORAX, DIAGNOS TIC W/O CONTRAST: CATINACON RADHA [id number] -[id number] F Exm Date: SEP 13, 2024@08:30 Req Phys: JOESPH WILLARD Loc: [facility]-ST CLR PACT 6 PCP (Req'g Lo Img Loc: [facility]-CT IMAGING [facility] Service: Unknown Screen: Patient answered no [facility], [address] [place] [address] (Case [id number] COMPLETE) CT THORAX, DIAGNOSTIC W/O CONTRAS(CT Detailed) CPT:81702 Reason for Study: wheezing, AC Clinical History: Responsible Attending: Joesph Willard Attending Contact Number: [phone] Resident Contact Number: 49 yr old F with remote hx of covid, non smoker, exposure to second hand smoke, has noted dyspnea with exertion for more than 6 months. 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 Allergies listed in CPRS chart: TERBUTALINE, PHENOBARBITAL, SHELLFISH Creatinine: CREATININE 0.94 mg/dL 08/31/2023 10:11 /eGFR: STL EGFR (within one year). CREATININE 0.94 mg/dL (08/31/23 10:11) Wt: 188 lb [85.28 kg] (08/30/2024 15:18) History of: Renal failure, chronic or acute renal disease: NO Report Status: Verified Date Reported: SEP 13, 2024 Date Verified: SEP 13, 2024 Heritage Consultant E-Sig:/ES/JIM CAIN Report: DATE: 09/13/2024 8:30 AM EXAM: CT THORAX, DIAGNOSTIC W/O CONTRAST ACCESSION NUMBERS: [id number] HISTORY: wheezing, AC IV contrast: No. Comparison: None FINDINGS: Lower neck and axilla: There is a 1.3 cm hyperattenuating finding at the region of right thyroid gland, which appears to separate from the thyroid gland, may represent thyroid nodule. Lungs: A few sub-3 mm nodules in both lungs. A tiny calcified granuloma in the left upper lung. Otherwise, no focal consolidation, pleural effusion or pneumothorax. Pleura: Within normal limits. Yoly: Within normal limits. Mediastinum: The cardiac size is normal. No mediastinal lymphadenopathy or mass. Upper abdomen: Moderate hiatal hernia. Musculoskeletal: Within normal limits. Impression: 1. No acute pathology identified in the lungs. 2. A 1.3 cm hyperattenuating finding at the region of right thyroid gland, which appears to separate from the thyroid gland, may represent thyroid nodule. Nonemergent thyroid ultrasound recommended. 3. Moderate size sliding hiatal hernia. 4. Bilateral thyroid nodules measuring up to 3 mm are very likely benign. If there are risk factors for lung malignancy a follow-up CT chest may be considered in one year. Alissa Cobos MD (Soil Sampler) Jim Webster, have reviewed the images and report and concur with these findings. Primary Interpreting Staff: JIM CAIN MD (Heritage Consultant) Primary Interpreting Resident: ALISSA COBOS, Resident Physician /JIM YUSUF [facility] Encounter Notes: All associated encounter notes This section contains the clinical notes associated to the Encounter. Date/Time Encounter Note(s) Provider Source Oct 02, 2024 08:35 AM PHYSICIAN LETTERS: LOCAL TITLE: TEST RESULT GENERAL LETTER STL STANDARD TITLE: PHYSICIAN LETTERS DATE OF NOTE: OCT 02, 2024@08:35 ENTRY DATE: OCT 02, 2024@08:35:37 AUTHOR: JOESPH WILLARD COSIGNER: URGENCY: STATUS: COMPLETED [facility] [address] [place] [address] OCT 02, 2024 CON RADHA TOPPER [address] [id number] Dear Con Humphries, I would like to update you on your recent test results. Exam: US THYROID (NECK SOFT-TISSUE) Case: [id number] History: Technique: Real-time ultrasound examination of the thyroid was obtained in transverse and longitudinal projections. Limited color Doppler exam was also performed. TI-RADS classification was utilized. Prior thyroid ultrasound: No prior thyroid ultrasound available for comparison. CT chest without contrast dated 09/13/2024 was reviewed. Right thyroid lobe nodules as detailed below. Background thyroid parenchyma is normal in echogenicity and vascularity bilaterally. Right lobe: 4.4 x 1.9 x 1.3 cm. Left lobe: 3.4 x 1.2 x 1.1 cm. Isthmus: 1 mm. Nodule #1: A 2.1 x 1.1 x 1.0 cm nodule in the right superior thyroid lobe. Composition: Solid (2 points) Echogenicity: Isoechoic (1 point) Shape: Wider than tall (0 points) Margin: Smooth (0 points) Echogenic foci: Punctate echogenic foci (3 points) Recommendation: TR4; fine needle aspiration recommended. Nodule #2: A 1.1 x 0.9 x 0.7 cm nodule in the right mid thyroid lobe. Composition: Solid (2 points) Echogenicity: Very hypoechoic (3 points) Shape: Wider than tall (0 points) Margin: Smooth (0 points) Echogenic foci: None (0 points) Recommendation: TR4; follow-up thyroid sonogram in 1, 2, 3, and 5 years to document stability. Nodule #3: A 1.2 x 1.1 x 0.9 cm nodule in the right inferior thyroid lobe. Composition: Solid (2 points) Echogenicity: Hypoechoic (2 points) Shape: Wider than tall (0 points) Margin: Smooth (0 points) Echogenic foci: Punctate echogenic foci (3 points) Recommendation: TR4; follow-up thyroid sonogram in 1, 2, 3, and 5 years to document stability. No abnormal cervical lymph nodes are seen. Impression: 1. TR4 nodule measuring up to 2.1 cm in the right superior thyroid lobe. Fine needle aspiration is recommended. 2. Two additional TR4 nodules in the right mid and inferior thyroid lobe. Follow-up thyroid sonogram and 1, 2, 3 and 5 years is recommended to document stability. PLAN I have reviewed your test results and we need you to meet with a scalp treatment specialist for biopsy.Pls call if you have any concerns. FUTURE APPOINTMENTS: 11/01/2024 09:30 [facility] CARE-STL SLEEP STUDY 09/01/2025 10:00 [facility]-ST CLR PACT 6 PCP Sincerely, JOESPH WILLARD MD TOPPER,JOESPH WELLS [facility] Aug 30, 2024 03:22 PM NURSING NOTE: LOCAL TITLE: V15 PACT FACE TO FACE NOTE [facility] STANDARD TITLE: NURSING NOTE DATE OF NOTE: AUG 30, 2024@15:22 ENTRY DATE: AUG 30, 2024@15:22:32 AUTHOR: ANTHONY ALVAREZ COSIGNER: URGENCY: STATUS: COMPLETED Provider Visit: Patient Identifiers : Full Name Date of Reason for visit: Established Follow-Up Mode of Arrival: Ambulatory Allergy Review: SHELLFISH NOV 26, 2019 (HISTORICAL) Symptoms: None listed PHENOBARBITAL NOV 26, 2019 (HISTORICAL) Symptoms: None listed TERBUTALINE NOV 26, 2019 (HISTORICAL) Symptoms: DYSPNEA Allergy list reviewed and remains current. Recent Vital Signs: Temperature: 97.8 F [36.6 C] (08/30/2024 15:18) Pulse: 84 (08/30/2024 15:18) Respiration: 18 (08/30/2024 15:18) B/P: 112/77 (08/30/2024 15:18) Pain: 0 (08/30/2024 15:18) Wt: 188 lb [85.28 kg] (08/30/2024 15:18) Ht: 66 in [167.6 cm] (08/30/2024 15:18) BMI: 30.4 POX: 97% (08/30/2024 15:18) PERSONAL HEALTH INVENTORY Notes: No data available for PHI note titles PERSONAL HEALTH INVENTORY - MAP: No data available for PHI MAP What matters most to you in your life right now? - [place]'s Response: family WHOLE HEALTH SHARED GOALS: PERSONAL HEALTH PLAN - SHARED GOALS: No data available for: Php Shared Goals SHARED GOALS snoring Would you like to discuss any personal problem, family problem, alcohol use, drug use, or a mental or emotional illness? No My [facility] ([facility]), please select appointment type: Face to face: Yes-Do you have an upgraded (Premium) account which gives you the added benefit of Secure Messaging with your Primary Care Provider and refilling your prescriptions online? Contact provided Primary Care phone number and encouraged to call if any questions or concerns. Review that after hours nurse line [phone] and emergency room are available 12/09 for patient use. Contact verbalized good understanding. Suicide Screen - V: C-SSRS Screening [place] Suicide Severity Rating Scale (C-SSRS) screener 1. Over the past month, have you wished you were or wished you could go to sleep and not wake up? No 2. Over the past month, have you had any actual thoughts of killing yourself? No 3. Over the past month, have you been thinking about how you might do this? Response not required due to responses to other questions. 4. Over the past month, have you had these thoughts and had some intention of acting on them? Response not required due to responses to other questions. 5. Over the past month, have you started to work out or worked out the details of how to kill yourself? Response not required due to responses to other questions. 6. If yes, at any time in the past month did you intend to carry out this plan? Response not required due to responses to other questions. 7. In your lifetime, have you ever done anything, started to do anything, or prepared to do anything to end your life (for example, collected pills, obtained a gun, gave away valuables, went to the roof but didn't jump)? No 8. If YES, was this within the past 3 months? Response not required due to responses to other questions. Sexual Orientation - CP,L,N,P,PH,PS,S,U: The patient thinks of their sexual orientation as: Straight or Heterosexual Alcohol Use Screen (AUDIT-C) - V: Alcohol Screen: SCREEN FOR ALCOHOL (AUDIT-C) An alcohol screening test (AUDIT-C) was negative (score=2). 1. How often did you have a drink containing alcohol in the past year? Consider a drink to be a 12 ounce can or bottle of regular beer, 8 ounces of malt liquor, a 5 ounce glass of table wine, or a 1.5 ounce shot of liquor (like scotch, gin, or vodka). Two to four times a month 2. How many drinks containing alcohol did you have on a typical day when you were drinking in the past year? One or two drinks 3. How often did you have 4 or more drinks on one occasion in the past year? Never Homelessness/Food Insecurity Screen - DI,L,N,P,PH,PS,S,U: In the past 2 months, have you been living in stable housing that you own, rent, or stay in as part of a household? Yes - Living in stable housing. Are you worried or concerned that in the next 2 months you may NOT have stable housing that you own, rent, or stay in as part of a household? No - Not worried about housing near future The [place] reports the following: Within the past 12 months, you worried whether your food would run out before you got money to buy more. Never true Within the past 12 months, the food you bought just didn't last and you didn't have money to get more. Never true Influenza Immunization - L,N,P,PH,U: The patient has received the seasonal influenza vaccine for the current season at another location. Documented: INFLUENZA, UNSPECIFIED FORMULATION Historical Date Administered: 2023 Exact date unknown Outside Location: [facility] Information Source: FROM PATIENT'S RECALL Tobacco Use Screening - AT,DE,L,M,N,P,PH,PS,RT,S,U: The patient is a former cigarette smoker. The patient has never used other types of tobacco. Depression Screening - V: Perform PHQ-2 A PHQ-2 screen was performed. The score was 0 which is a negative screen for depression. Over the past two weeks, how often have you been bothered by the following problems? 1. Little interest or pleasure in doing things Not at all 2. Feeling down, depressed, or hopeless Not at all PTSD Screening - V: PC-PTSD-5 A PTSD screening test (PC-PTSD-5) was negative (score=0). Sometimes things happen to people that are unusually or especially frightening, horrible or traumatic. For example: A serious accident or fire a physical or sexual assault or abuse An earthquake or flood A war Seeing someone be killed or seriously injured Having a loved one through homicide or suicide 1. Have you ever experienced this kind of event? NO 2. Had nightmares about the event(s) or thought about the event(s) when you did not want to? Response not required due to responses to other questions. 3. Tried hard not to think about the event(s) or went out of your way to avoid situations that reminded you of the event(s)? Response not required due to responses to other questions. 4. Been constantly on guard, watchful, or easily startled? Response not required due to responses to other questions. 5. [place] numb or detached from people, activities, or your surroundings? Response not required due to responses to other questions. 6. [place] guilty or unable to stop blaming yourself or others for the event(s) or any problems the event(s) may have caused? Response not required due to responses to other questions. 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 denies cp, sob, palpitations. Pt reports well controlled GERD. has to take PPI daily and occ Famotidine prn for breathrough. remote hx of kevin fundoplication.occ would have GB colic after fatty meal.prefers conservative measures for now. Denies dysphagia, weight changes, bloody vomitus/BM scope /egd per [facility] 08/19/24 erosive esophagitis, hiatal hernia and polyp.recommend repeat egd and colonoscopy in [address] [facility] [address] Smith SOURCE(S) OF HISTORY: Patient PAST MEDICAL HISTORY: 1) Migraine without Aura ([facility] [[email or web address]] [id number]) 2) GERD - Gastro-Esophageal Reflux Disease ([facility] [[email or web address]] [id number]) comment: s/p Kevin for hiatal hernia 2001 comment: hx of Lucas's 3) Contraception comment: partner vasectomy, pt had ablation 4) Contraception comment: partner vasectomy, pt had ablation comment: amenorrahic after ablation in 2018 5) Elbow pain comment: left elbow extensor tear 2021 FAMILY HISTORY: No new updates. SOCIAL HISTORY: NICOTINE: Nicotine User: No ILLICIT DRUGS: No ETOH: denies ALLERGIES: TERBUTALINE, PHENOBARBITAL, SHELLFISH ALLERGY REVIEW: Allergy list reviewed and remains current. MEDICATION RECONCILIATION: I have reviewed the patient's medication list with the patient and/or his/her care-soapstoner. Handwritten corrections, additions and/or deletions were made to the list. Corrected Outpatient Medication List was provided to the patient/caregiver. Active Outpatient Medications (including Supplies): Active Outpatient Medications Status 1) OMEPRAZOLE 40MG EC CAP TAKE ONE CAPSULE BY MOUTH EVERY ACTIVE MORNING BEFORE A MEAL TO LOWER STOMACH ACID. TAKE 30 MINUTES PRIOR TO FOOD. 2) ONDANSETRON 8MG ORAL DISINTEGRATING TAB TAKE ONE TABLET ACTIVE UNDER THE TONGUE EVERY EIGHT(8) HOURS NEEDED Indication: FOR NAUSEA/VOMITING 3) PAROXETINE HCL 10MG TAB TAKE ONE TABLET BY MOUTH ONCE A DAY ACTIVE DO NOT ABRUPTLY DISCONTINUE MEDICATION. Indication: FOR ANXIETY REVIEW OF SYSTEMS: General: Normal No Fevers, Chills, Weight Loss, Weight Gain, Recent Illness. Ears, Nose, Mouth, Throat: Normal No new loss of hearing or tinnitus, no Dental issue, Difficulty swallowing, Vertigo. Eye: Normal No Trauma, Cataracts, Glaucoma, Blurred vision Cardiovascular: Normal No Chest pain, Dizziness, Palpitations. Respiratory: Normal No Cough, SOB, Hemoptysis, Epistaxis, Influenza symptoms, +PDD. PHYSICAL EXAMINATION: General appearance: VITALS (most recent, as listed in the electronic record): B/P: 112/77 (08/30/2024 15:18) Pulse: 84 (08/30/2024 15:18) Temperature: 97.8 F [36.6 C] (08/30/2024 15:18) Weight: 188 lb [85.28 kg] (08/30/2024 15:18) Height: 66 in [167.6 cm] (08/30/2024 15:18) BMI: 30.4 Pain: 0 (08/30/2024 15:18) (0-10 scale) General: pleasant, cooperative, well-developed, well-nourished, appropriately dressed and groomed ; in no acute distress. Ears, Nose, Mouth, Throat:NC/AT,MMM, no thyromegaly Eye:PERRL Cardiovascular:RRR, No m/r/g or clicks. Respiratory:Clear to auscultation bilaterally. No accessory muscle use. Respirations even and non-labored ABD/GI:soft, non-tender. BS + x 4. /BENCH EXAMINER: Deferred Lymph: No lymphadenopathy Extremities:No pedal edema. Psych:Affect appropriate. Neuro: Oriented x3. Gait steady with normal stride. Hematology: Color good. No pallor. No ecchymosis or petechiae. Skin:No visualized abnormalities. ASSESSMENT/PLAN: # snoring r/o anabell , sleep med consult # cough /wheezing and sob post covid sequela, CXR OSH NEG. proceed wiht chest CT and PFT #. GERD , hx of hiatal hernia s/p kevin surgery, hx of Lucas's.EGD shoed gastritis, also had polyp, repear scope in 3 yrs -- due 2027. cont ppi #. anxiety , poss burnout vs situational- dayana try low dose paxil bth for mood and vasomotor symptoms/monitor # vasomotor symptoms r.o menopause, amenorrhea since 2018 after ablation. check FSH. try paxil #. migraine stable monitor, zofran helps with h/a and nausea. RETURN TO CLINIC:annual/sooner prn SUMMARY STATEMENT: Plan of care has been discussed with including expected therapeutic benefits and potential side effects of prescribed medication and treatments. [place] verbalizes understanding and is in agreement with the plan of care. Patient was instructed to keep all scheduled appointments and contact microbiology lab technician for any additional problems. PREVENTION & SCREENING: ALCOHOL: Clinical Reminder not due now or within a month BLOOD PRESSURE: Clinical Reminder not due now or within a month HEMOGLOBIN A1C: Clinical Reminder not due now or within a month /es/ JOESPH WILLARD MD Signed: 08/30/2024 16:44 JOESPH WILLARD [facility]
--- OUTSIDE RECORDS SUMMARY | 2024-10-04 18:09 | XMS_ITS | Encounter Summary ---
Author Name [facility] [place] Organization [facility] [place] Address [address] [place] [address] Care Team Providers Care Track Inspecting Supervisor Name Role Phone JOESPH WILLARD Primary Care Provider Unavailabl e Selected Encounter This section includes the information on record at [place] for the Encounter. Date/Time Encounter Type Encounter Description Reason Provider Source Oct 02, 2024 09:45 AM Outpatient Encounter ENDOCRINOLOGY ICD-10-CM E04.1 Nontoxic single thyroid nodule MILENA CANALES Roman Encounter Template Text not used by [place] Assessments - Encounter Diagnoses This section includes the primary and secondary diagnoses documented for the Encounter. Date/Time Primary/Secondary Diagnosis Diagnosis Name Provider Source Oct 02, 2024 12:12 PM PRIMARY Nontoxic single thyroid nodule MILENA CANALES [facility] Plan of Treatment: Future Appointments (+ 6 months) and Future Tests (+/- 45 days) The Plan of Treatment section includes future care activities for the patient from all [place] treatmentfacilities. This section includes future appointments and future orders which are active, pending or scheduled. Future Appointments This section includes appointments that were scheduled to occur 6 months from the date of the Encounter, up to a maximum of 20 appointments. The data comes from all [place] treatment facilities. Appointment Date/Time Appointment Type Appointme nt Facility Name Nov 01, 2024 09:30 AM AMBULATORY - MEDICINE [facility] Active, Pending, and Scheduled Orders This section includes a listing of several types of active, pending, and scheduled orders, including clinic medications orders, diagnostic test orders, procedure orders and consult orders; where the start date of the order is 45 days before the date of the Encounter or 45 days after the date of theEncounter. The data comes from all [place] treatment facilities. Test Date/Time Test Type Test Details Facility Name Aug 30, 2024 04:41 PM Consult Order [facility] SLEEP STUDY Cons Workers' Compensation Magistrate's Choice [facility] Oct 02, 2024 12:00 AM Laboratory - Chemi stry Order TSH (MA-PB) GOLD/RED SST SERUM SP [facility] Oct 02, 2024 12:00 AM Laboratory - Chemi stry Order FREE T4 (MA-PB) GOLD/RED SST SERUM SP [facility] Oct 02, 2024 12:00 AM Laboratory - Chemi stry Order TOTAL T3 (STL-PB) GREEN LI-HEP PLASMA SP [facility] Oct 02, 2024 12:00 AM Laboratory - Chemi stry Order PT/INR NEW (STL-MA) BLOOD PLASMA SP [facility] Oct 02, 2024 08:41 AM Consult Order ENDO THYRO ID NEEDLE ASPIRATION BIOPSY OUTPATIENT [facility] Cons Workers' Compensation Magistrate's Choice [facility] Oct 04, 2024 07:49 AM Consult Order [facility] RAD INTERVENT Cons Workers' Compensation Magistrate's Choice [facility] Lab Results: +/- 30 days of the encounter This section includes the Chemistry and Hematology Lab Results on record with [place] for the patient. Radiology Reports and Pathology Reports are provided separately, in subsequent sections. Lab Results This section contains the Chemistry/Hematology Results that were resulted 30 days before or 30 daysafter the date of the Encounter. Date/Time Source Result Type Result - Unit Interpretation Reference Range Specimen Type Comment Sep 05, 2024 10:46 AM [facility] FSH (STL-MA) SERUM Specimen Type: SERUM Comment: Unable to flag abnormal result(s), please refer to reference range(s) below: Adult female reference ranges for FSH: Follicular Phase: 2.5-10.2 mIU/mL Mid-Cycle Peak: 3.1-17.7 mIU/mL Luteal Phase: 1.5-9.1 mIU/mL Postmenopausal: 23.0-116.3 mIU/mL Test Performed by [employer], [address] [place] [address] Dave Hector M.D., Ph.D., Director of Laboratories , CLIA [id number] Ordering Provider: JOESPH WILLARD Report Released Date/Time: Aug 30, 2024 04:43 PM Reporting Lab: [facility] [address] [phone] Performing Lab: [facility] [id number] [place] [address] FSH (STL-MA) 34.0 m[IU]/mL Sep 05, 2024 10:46 AM [facility] ESTRADIOL SERUM Specimen Type: SERUM Comment: Unable [...] males, pre-pubertal children, and hypogonadal/post-menopausal females), the [employer] Estradiol, Ultrasensitive, LCMSMS assay is recommended (order code 94779). Please note: Patients being treated with the drug fulvestrant [Faslodex(R)] have demonstrated significant interference in immunoassay methods for estradiol measurement. The cross reactivity could lead to falsely elevated estradiol test results leading to an inappropriate clinical assessment of estrogen status. [employer] order code [id number], Ultrasensitive LC/MS/MS demonstrates negligible cross reactivity with fulvestrant. Test Performed by [employer], [address] [place], [place] Dave Hector M.D., Ph.D., Director of Laboratories , CLIA [id number] Ordering Provider: JOESPH WILLARD Report Released Date/Time: Aug 30, 2024 04:43 PM Reporting Lab: [facility] [address] [facility] [address] Performing Lab: [facility] [address] [facility] [address] ESTRADIOL 97 pg/mL Sep 05, 2024 10:46 AM [facility] COMPREHENSIVE METABOLIC PANEL PLASMA Specimen Type: PLASMA Comment: No hemolysis noted. Ordering Provider: JOESPH WILLARD Report Released Date/Time: Aug 30, 2024 04:34 PM Reporting Lab: [facility] [address] [facility] [address] Performing Lab: [facility] [address] [place] [phone] CREATININE 0.74 mg/dL 0.6-1.1 UREA NITROGEN 20.0 [...] 97.9 >60 Sep 05, 2024 10:46 AM [facility] LIPID PANEL (STL) PLASMA Specimen Type: PLASM A Comment: No hemolysis noted. Ordering Provider: JOESPH WILLARD Report Released Date/Time: Aug 30, 2024 04:34 PM Reporting Lab: [facility] [address] [facility] [address] Performing Lab: [facility] [address] [place] [phone] CHOLESTEROL 213 mg/dL H 0-200 TRIGLYCERIDE 132 mg/dL 0-150 CALCULATED LDL 132 mg/dL HDL(New) 55 mg/dL >40 Sep 05, 2024 10:46 AM [facility] CBC BLOOD Specimen Type: BLOOD No comment entered. Ordering Provider: JOESPH WILLARD Report Released Date/Time: Aug 30, 2024 04:34 PM Reporting Lab: [facility] [address] [place] [phone] Performing Lab: [facility] [address] [place] [phone] WBC 7.4 10*3/uL 3.6-11.2 RBC 4.58 10*6/uL [...] 0.00-0. 20 Sep 05, 2024 10:46 AM [facility] HGA1C BLOOD Specimen Type: BLOOD No comment entered. Ordering Provider: JOESPH WILLARD Report Released Date/Time: Aug 30, 2024 04:34 PM Reporting Lab: [facility] [address] [place] [phone] Performing Lab: [address] [address] HGA1C 5.4 4.0-6.0 Sep 05, 2024 10:46 AM [facility] TSH W/ REFLEX FT4 (STL) PLASMA Specimen Type: PLASMA No comment entered. Ordering Provider: JOESPH WILLARD Report Released Date/Time: Aug 30, 2024 04:34 PM Reporting Lab: [facility] [address] [place] [facility] [address] Performing Lab: [facility] [address] [facility] [facility] [address] TSH 0.817 u[IU]/mL 0.47-5 Sep 05, 2024 10:46 AM [facility] VITAMIN D, 25-HYDROXY SERUM Specimen Type: SE RUM No comment entered. Ordering Provider: JOESPH WILLARD Report Released Date/Time: Aug 30, 2024 04:34 PM Reporting Lab: [facility] [address] [facility] [address] Performing Lab: [place] [address] [phone] VITAMIN D, 25-HYDROXY 31.2 ng/mL 30-96 Radiology Reports: +/- 30 days of the [...] the Encounter. The data comes from all [place] treatment facilities. Date/Time Radiology Report Provider Source Sep 24, 2024 02:07 PM US THYROID (NECK SOFT-TISSUE): CON DOMINIQUE [id number] -1975 F Exm Date: SEP 24, 2024@14:07 Req Phys: JOESPH WILLARD Pat Loc: [facility]-CT FLASH AM (Req'g Loc) Img Loc: [facility]-ULTRASOUND [facility] Service: Unknown Screen: Patient answered no [facility] [address] [place] [address] (Case [id number] COMPLETE) US THYROID (NECK SOFT-TISSUE) (US Detailed) CPT:02274 Reason for Study: incidental finding right sided thyroid nodule on ct chest Clinical History: Report Status: Verified Date Reported: SEP 24, 2024 Date Verified: SEP 24, 2024 Relocation Coordinator E-Sig:/ES/MANN FELIPE Report: Exam: US THYROID (NECK SOFT-TISSUE) Case: [id number] History: Technique: Real-time ultrasound examination of the [...] 5 years is recommended to document stability. IMann, have reviewed the images and report and concur with these findings. Primary Interpreting Staff: MANN FELIPE, RADIOLOGIST (Relocation Coordinator) Primary Interpreting Resident: GOPAL YU, Resident Physician /MANN HENNING [facility] Sep 13, 2024 08:[address] THORAX, DIAGNOS TIC W/O CONTRAST: CON DOMINIQUE [id number] -1975 F Exm Date: SEP 13, 2024@08:30 Req Phys: JOESPH WILLARD Loc: -ST CLR PACT 6 PCP (Latonya'ly Smith Img Loc: [facility]-CT IMAGING [facility] Service: Unknown Screen: Patient answered no [facility] [address] [place] [address] (Case [id number] COMPLETE) CT THORAX, DIAGNOSTIC W/O CONTRAS(CT Detailed) CPT:75184 Reason for Study: wheezing, AC Clinical History: Responsible Attending: Joesph Willard Attending Contact Number: ext [phone] Resident Contact Number: 49 yr old F with remote hx of covid, non smoker, exposure to second hand smoke, has noted dyspnea with exertion for more than 6 months. 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 Allergies listed in CPRS chart: TERBUTALINE, PHENOBARBITAL, SHELLFISH Creatinine: CREATININE 0.94 mg/dL 08/31/2023 10:11 /eGFR: STL EGFR (within one year). CREATININE 0.94 mg/dL (08/31/23 10:11) Wt: 188 lb [85.28 kg] (08/30/2024 15:18) History of: Renal failure, chronic or acute renal disease: NO Report Status: Verified Date Reported: SEP 13, 2024 Date Verified: SEP 13, 2024 Relocation Coordinator E-Sig:/ES/JIM CAIN Report: DATE: 09/13/2024 8:30 AM EXAM: CT THORAX, DIAGNOSTIC W/O CONTRAST ACCESSION NUMBERS: [id number] HISTORY: wheezing, AC IV contrast: No. Comparison: [...] considered in one year. Alissa Cobos MD (Global Climate Change Researcher) Jim Webster, have reviewed the images and report and concur with these findings. Primary Interpreting Staff: JIM CAIN MD (Relocation Coordinator) Primary Interpreting Resident: ALISSA COBOS, Resident Physician /JIM YUSUF [facility] Encounter Notes: All associated encounter notes This section contains the clinical notes associated to the Encounter. Date/Time Encounter Note(s) Provider Source Oct 02, 2024 09:46 AM ATTENDING NOTE: LOCAL TITLE: ATTENDING MD NOTE STL STANDARD TITLE: ATTENDING NOTE DATE OF NOTE: OCT 02, 2024@09:46 ENTRY DATE: OCT 02, 2024@09:46:51 AUTHOR: MILENA CANALES EXP COSIGNER: URGENCY: STATUS: COMPLETED Endocrine consult received Ultrasound reviewed 09/24/2024 14:07 US THYROID (NECK SOFT-TISSUE) incidental finding right sided thyroid nodule on ct chest Impression 1. TR4 nodule measuring up to 2.1 cm in the right superior thyroid lobe. Fine needle aspiration is recommended. 2. Two additional TR4 nodules in the right mid and inferior thyroid lobe. Follow-up thyroid sonogram and 1, 2, 3 and 5 years is recommended to document stability. Impression thyroid nodule plan: IR consult [facility] Await results Time spent on chart review more than 10 minutes /es/ MILENA CANALES MD PHYSICIAN Signed: 10/02/2024 12:12 MILENA CANALES [facility]
--- OUTSIDE RECORDS SUMMARY | 2024-10-04 18:09 | XMS_ITS | Clinical Summary ---
Author Organization [facility] Address [facility] [place] [address] Care Team Providers Care Customer Care Representative Name Role Phone Narinder Sung MD Unavailable [phone] None, Provider MD Primary Care Provider [...] 87 08/12/2022 4:30 PM CDT Temperature 36.9 C (98.4 F) 08/12/2022 12:18 PM CDT Respiratory Rate 19 08/12/2022 4:35 PM CDT Oxygen Saturation 99% 08/12/2022 4:30 PM CDT Inhaled Oxygen Concentration - - Weight 84.5 kg (186 lb 4.6 oz) 08/12/2022 12:18 PM CDT Height 167.6 cm (5' 6) 08/12/2022 12:18 PM CDT Body Mass Index [...] wi th HPV 08/17/2003 Mammogram Screening 2013 Pneumococcal Vaccine: 50+ Years (1 of 1 - PCV) 08/17/2023 Zoster Vaccines (1 of 2) 08/17/2023 COVID-19 Vaccine (3 - 2023-2 5 season) 2023 06/30/2020, 06/04/2020 DTaP, Tdap and Td Vaccines ( 2 [...] patient's age to complete this topic Insurance [facility] [employer] Care Teams Customer Care Representative Relationship Specialty Start Date End Date None, Provider, PCP - General UNKNOWN PHYSICIAN SPECIALTY 08/12/22 Narinder Sung MD Rachael Substance Abuse Counselor CARDIOVASCULAR DISEASE 07/22/15
--- OUTSIDE RECORDS SUMMARY | 2024-10-04 18:10 | XMS_ITS | Continuity of Care Document ---
Author Name [facility] Organization [facility] Care Team Providers Care Napper Tender Name Role Phone [facility] Unavailable Unavailable Problems Combined list of problems from Department of Defense and Veterans Affairs facilities. It does not include entries that were removed or entered in error. Problem Status Onset Date Problem Type Date of Resolution Comments Source Disorder of the skin and subcutaneous tissue, unspecified Active 09/11/19 Diagnosis [facility]-C -[facility] Disorder of the skin and subcutaneous tissue, unspecified Active 07/02/19 Diagnosis [facility]130C-Af-C -375Th [facility] tt Other family history of colon polyps Active 07/02/19 Diagnosis 6130C-Af-C -375Th [facility]Sco tt Family history of cancer of colon Active 07/02/19 Diagnosis 6130C-Af-C -375Th [facility] Skin lesion Active 07/02/19 Diagnosis 6130C-Af-C -375Th [facility]Sco tt Disorder of the skin and subcutaneous tissue, unspecified Active Condition 6130C -Af-C -375Th [facility]-Sco tt Other family history of colon polyps Active Condition 30C-Af-C -375Th Medgr[facility]-Sco tt Contraception Active Condition Sep Entered By: JOESPH FOSTER Comment: partner vasectomy, pt had ablation [facility] Contraception Active Condition Sep Entered By: JOESPH FOSTER Comment: partner vasectomy, pt had ablationJu2023 Entered By: JOESPH FOSTER Comment: amenorrahic after ablation in 2017 [facility] Elbow pain Active Condition Aug 25 Entered By: JOESPH FOSTER Comment: left elbow extensor tear 2021 [facility] GERD - Gastro-Esophageal Reflux Disease ([facility] [id number]) Active Condition Nov 26, 2019 Entered By: JOESPH FOSTER Comment: s/p Jelani for hiatal hernia [id number] Entered By: JOESPH FOSTER Comment: hx of [facility] Migraine without Aura (SCT [id number]) Active Condition [facility] MENOMETRORRHAGIA Active Condition DoD Removal Of Sutures Inactive Condition Do D PIGMENTED NEVUS Active Condition DoD SKIN NEOPLASM UNCERTAIN BEHAVIOR Active Condition DoD visit for: screening exam dermatological disorders Inactive Condition DoD Overweight Active Condition DoD Outpatient Physician Consultation Active Condition DoD HEMORRHOIDS Active Condition DoD STRESS INCONTINENCE Active Condition Do D FOLLICULITIS Inactive Condition DoD sudden redness of the skin (flushing) Active Condition DoD ROUTINE PELVIC EXAM Inactive Condition D oD Coagulation Studies Abnormality Active Condition DoD Laboratory Studies Inactive Condition Do D MIGRAINE HEADACHE (HEMIPLEGIC) SPORADIC Active Condition DoD CEREBRAL ISCHEMIA Active Condition DoD CONDITIONS INFLUENCING HEALTH STATUS Active Condition DoD PERIPHERAL NEUROPATHY Active Condition DoD ACUTE BRONCHITIS Inactive Condition DoD insomnia Active Condition DoD STROKE SYNDROME Inactive Condition DoD URETERAL STONE Active Condition DoD ESOPHAGEAL REFLUX Active Condition DoD BREAST LUMP OR MASS Active Condition Do D visit for: screening exam for malignant neoplasm cervix Inactive Condition DoD ROUTINE GYNECOLOGICAL EXAM WITH CERVICAL PAP SMEAR Inactive Condition DoD visit for: laboratory Inactive Condition DoD FATIGUE Active Condition DoD foot pain (soft tissue) Active Condition DoD visit for: routine eye exam Active Condition DoD Back Muscle Spasm Active Condition DoD visit for: issue repeat prescription for medication Inactive Condition DoD visit for: follow-up exam Inactive Condition DoD visit for: screening exam pulmonary tuberculosis Inactive Condition DoD CONJUNCTIVITIS CHRONIC ALLERGIC Active Condition DoD ASTIGMATISM - REGULAR Active Condition 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 Patient unsure how to go about scheduling. Patient escorted to U/S department where they scheduled test for patient. Patient informed any time have [facility] rx from provider she DoD DYSPLASTIC NEVUS Active Condition Pt will be referred to derm for further screening and evaluation, but the mole on pt's right lower ext should be removed. DoD visit for: issue repeat prescription Inactive Condition DoD Tuberculin PPD Nonspec Reaction Without Active Tuberculosis Active Condition DoD Imaging Studies Inactive Condition DoD pain during urination (dysuria) Active Condition DoD HEMORRHOIDS EXTERNAL Active Condition Pt to apply cream bid for 2 weeks and to follow-up if not getting better. Discussed high fiber diet, water intake and exercise. [facility] visit for: services physical separation Inactive Condition MA0040 completed. Cleared for separation. 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 Diagnosis: ICD-10-CM E04.1 Nontoxic single thyroid nodule Active Diagnosis [facility] Diagnosis: ICD-10-CM R06.02 Shortness of breath Active Diagnosis [facility] Diagnosis: ICD-10-CM G43.009 Migraine w/o aura, not intractable, w/o status migrainosus Active Diagnosis [facility] Medications Combined list of outpatient medications from Department of Defense and Veterans Affairs facilities.Medications provided include 1) outpatient medications from the last 15 months, and 2) patient-reported medications. Medication Details Route Status Patient Instructions Prescription Expires Prescription Number Last Dispense Date Ordering Provider Order Date Order Qty Source ALBUTEROL SULFATE HFA (albuterol sulfate), 90 MCG, HFA AER AD, INHALATION, TEVA [place], 8.5 g CANISTER ALBUTERO L SULFATE HFA (albuter ol sulfate) , 90 MCG, HFA AER AD, INHALATI ON, TEVA [place], 8.5 g CANISTER Start Date: 11/14/20 Status: Ordered Repeat number: 1 Ordered 2020 No Facilit y Access baclofen 10 mg oral tablet baclofen 10 mg oral tablet Start Date: 06/02/20 Status: Ordered Repeat number: 1 Ordered 2020 No Facilit y Access benzonatate 100 mg oral capsule benzonat ate 100 mg oral capsule Start Date: 11/14/20 Stop Date: 09/10/24 Status: Complete d Repeat number: 1 Complet ed 09/10/20242024 No Facilit y Access clindamycin -benzoyl peroxide 1%-5% topical gel clindamy daphne-crescencio oyl peroxide 1%-5% topical gel Start Date: 11/16/20 Stop Date: 09/10/24 Status: Complete d Repeat number: 1 Complet ed 09/10/20242024 No Facilit y Access doxycycline hyclate 100 mg oral tablet 0 total refill(s ) Complet ed 09/10/20242024 No Facilit y Access EPINEPHrine (eqv-epi-pe n) 0.3mg autoinjecto r kit [2EA] See Instruct ions, # 2 EA, 2 total refill(s ), Hard Stop Complet ed 10/26/2023 3 2023 2.0 Ambulat ory Pharmac y FLUZONE QUAD [id number] (influenza virus vaccine quadrival [id number](6 mos and up)/PF), 60MCG/.5ML, FLUZONE QUAD 1 (influen za virus vaccine quadriva l 2019- 1(6 mos and up)/PF), 60MCG/.5 ML, Start Date: 12/11/19 Stop Date: 09/10/24 Status: Complete d Repeat number: 1 Complet ed 09/10/20242024 No Facilit y Access High Potency Probiotic oral capsule cap(s), Oral, Daily, 0 total refill(s ), Maintena nce Oral (given by mouth) Ordered 2024 6[facility]C-A f-C-[facility] magnesium amino acids chelate Oral, 0 total refill(s ), Maintena nce Oral (given by mouth) Ordered 2024 6130C-A f-C-375 Med[facility]- [place] montelukast 10 mg oral tablet monteluk ast 10 mg oral tablet Start Date: 11/17/20 Status: Ordered Repeat number: 1 Ordered 2020 No Facilit y Access omeprazole 40 mg oral delayed release capsule omeprazo le 40 mg oral delayed release capsule Start Date: 01/20/20 Status: Ordered Repeat number: 1 Ordered 2020 No Facilit y Access OMEPRAZOLE 40MG CAP,EC TAKE ONE CAPSULE BY MOUTH EVERY MORNING BEFORE A MEAL TO LOWER STOMACH ACID. TAKE 30 MINUTES PRIOR TO FOOD. ORAL ACTIVE 08/31/2025 [id number] FOSTER,A RMIDA A 2024 90 [facility] OMEPRAZOLE 40MG CAP,EC TAKE ONE CAPSULE BY MOUTH EVERY MORNING BEFORE A MEAL TO LOWER STOMACH ACID. TAKE 30 MINUTES PRIOR TO FOOD. ORAL DISCONT INUED 08/31/2024 [id number] 5 FOSTERA RMIDA A 2023 90 [facility] ondansetron 4 mg oral tablet, disintegrat ing ondanset pavan 4 mg oral tablet, disinteg rating Start Date: 01/20/20 Status: Ordered Repeat number: 1 Ordered 2020 No Facilit y Access ONDANSETRON HCL 8MG TAB,ORALLY DISINTEGRAT ING TAKE ONE TABLET UNDER THE TONGUE EVERY EIGHT(8) HOURS NEEDED FOR NAUSEA/V OMITING SUBLIN GUAL 08/31/2024 [id number] 5 FOSTERA RMIDA A 2023 30 [facility] PAROXETINE HCL 10MG TAB TAKE ONE TABLET BY MOUTH ONCE A DAY FOR ANXIETY DO NOT ABRUPTLY DISCONTI NUE MEDICATI ON. ORAL 08/31/2024 [id number] 4 CRISTIANA RMIDA A 2023 90 [facility] predniSONE 20 mg oral tablet predniSO NE 20 mg oral tablet Start Date: 11/14/20 Stop Date: 09/10/24 Status: Complete d Repeat number: 1 Complet ed 09/10/20242024 No Facilit y Access silver sulfadiazin e 1% topical cream silver sulfadia zine 1% topical cream Start Date: 01/26/20 Stop Date: 09/10/24 Status: Complete d Repeat number: 1 Complet ed 09/10/20242024 No Facilit y Access sucralfate 1 g/10 mL oral suspension sucralfa te 1 g/10 mL oral suspensi on Start Date: 01/20/20 Stop Date: 09/10/24 Status: Complete d Repeat number: 1 Complet ed 09/10/20242024 No Facilit y Access tretinoin 0.025% topical cream tretinoi n 0.025% topical cream Start Date: 11/16/20 Stop Date: 09/10/24 Status: Complete d Repeat number: 1 Complet ed 09/10/20242024 No Facilit y Access Vitamin D3 50 mcg (2000 intl units) oral capsule cap(s), Oral, Daily, 0 total refill(s ), Maintena nce Oral (given by mouth) Ordered 2024 6130C-A f-C-375 [facility] Allergies, Adverse Reactions, Alerts Combined list of allergies from Department of Defense and Veterans Affairs facilities. It does not include entries that were removed or entered in error. Substance Category Reaction Severity Reaction type Status Date Reported Comments Source contrast media (iodine-base d) Drug allergy Shortness of breathe, SVT Unknown Active 6130C-Af -C-375Th [facility]S la[facility] EGG/POULTRY Food allergy (disorder) Urticaria active [address] [place] [address] [place] [facility] EGG/POULTRY {Cla } Food allergy (disorder) Urticaria active [address] [place] [address] [place] [facility]) Eggs Food allergy Urticaria (Hives) Unknown Resolved only during < br/>Histor ical comment: swelling 6130C-Af -C-375Th [facility] INFLUENZA VACC,TRI 2003(LIVE) Drug allergy (disorder) Unknown active [address] [place] [address] [place] [facility]) Influenza Virus Vaccine Drug allergy Swelling, Urticaria (Hives) Unknown Resolved when vaccine was made with eggs 6130C-Af -C-375Th [facility]S la[facility] OTHER Drug allergy (disorder) Unknown active [address] [place] [address] [place] [facility] OTHER Drug allergy (disorder) active [address] [place] [address] [place] [facility]) PETN/PHENOBA RBITAL Drug allergy (disorder) Unknown active [address] [place] [address]) PHENOBARBITA L Propensity to adverse reactions to drug (finding) active 0 . [facility] PHENobarbita l Drug allergy Unknown Unknown Active Historical comment: per sponsor's mother [facility] shellfish Drug allergy Anaphylaxi s Severe Active 7 [facility] SHELLFISH Propensity to adverse reactions to food (finding) active 0 [facility] SHELLFISH CONTAINING PRODUCTS {Cla } Food allergy (disorder) Anaphylaxi s active [address] [place] [address] [facility] TERBUTALINE Propensity to adverse reactions to drug (finding) Dyspnea active 0 [facility] TERBUTALINE Drug allergy (disorder) Unknown active [address] [place] [address] [place] [facility] TERBUTALINE SULFATE Drug allergy (disorder) Unknown active [address] [place] [address] [place] [facility]) terbutaline Drug allergy Unknown Severe Active Reaction(s ): Unknown; Note: *DONT TAKE IT* CAUSED SOB, SVT(200 BPM) \T\ SEVERE MUSCLE SPASM - CAUSED ICU ADM Ambul[facility] ry Pharmacy Immunizations Combined list of available immunizations from the Department of Defense and [facility] Affairs facilities. Immunization Series Date Given Administered By Site Reaction Lot Number CVX Code Drug Choke Setter Status Comments Source INFLUENZA, UNSPECIFIED FORMULATION 2023 88 complet ed HISTORICA L INFORMATI ON - FROM PATIENT'S RECALL, [facility] INFLUENZA, SPLIT VIRUS, QUADRIVALENT, PF 1 2022 150 complet ed HISTORICA L INFORMATI ON - [facility], UNSPECIFIED FORMULATION 2020 88 complet ed [facility] tuberculin purified protein derivative 2020 [id number] 96 sanofi pasteur complet ed Patient Tolerance : Negative Ambulat ory Pharmac y tuberculin skin test; purified protein derivative solution, intradermal 1 2020 Unknown, Provider [id number] 96 Sanofi Pasteur ([facility]) complet ed tuberculi n skin test; purified protein derivativ e solution, intraderm [facility] COVID Vaccine Pfizer 2020 [id number] PFIZER complet ed COVID Vaccine Pfizer 06/30/20 Given Ambulat ory Pharmac y COVID-19 (PFIZER), MRNA, LNP-S, PF, 30 MCG/0.3 ML DOSE 2 2020 208 complet ed [facility] SARS-COV-2 (COVID-19) vaccine, mRNA, spike protein, LNP, preservative free, 30 mcg/0.3mL dose 2 2020 Unknown, Provider [id number] Pfizer, Inc (PFR) complet ed SARS-COV- 2 (COVID-19 ) vaccine, mRNA, spike protein, LNP, preservat hilario free, 30 mcg/0.3mL dose DoD COVID Vaccine Pfizer 2020 [id number] PFIZER complet ed COVID Vaccine Pfizer 06/04/20 Given Ambulat ory Pharmac y COVID-19 (PFIZER), MRNA, LNP-S, PF, 30 MCG/0.3 ML DOSE 1 2020 208 complet ed [facility] SARS-COV-2 (COVID-19) vaccine, mRNA, spike protein, LNP, preservative free, 30 mcg/0.3mL dose 1 2020 Unknown, Provider [id number] Pfizer, Inc (PFR) complet ed SARS-COV- 2 (COVID-19 ) vaccine, mRNA, spike protein, LNP, preservat hilario free, 30 mcg/0.3mL dose DoD influenza, injectable, quadrivalent- pf 2019 150 complet ed influenza , injectabl e, quadrival ent-pf 12/04/19 Given Ambulat ory Pharmac y INFLUENZA, SPLIT VIRUS, QUADRIVALENT, PF 1 2019 150 complet ed HISTORICA L INFORMATI ON - FROM OTHER REGISTRY, [facility] influenza, injectable, quadrivalent, preservative free 2019 ALUL, () Not Given influenza , injectabl e, quadrival ent, preservat hilario free DoD tuberculin purified protein derivative 2019 zzLef t Arm [id number] 96 sanofi pasteur complet ed Patient Tolerance : Negative Ambulat ory Pharmac y tuberculin skin test; purified protein derivative solution, intradermal 1 2019 Unknown, Provider [id number] 96 Sanofi Pasteur ([facility]) complet ed tuberculi n skin test; purified protein derivativ e solution, intraderm al DoD DTAP 1 2018 20 complet ed HISTORICA L INFORMATI ON - FROM OTHER [facility] influenza, injectable, quadrivalent- pf 2018 150 complet ed influenza , injectabl e, quadrival ent-pf 11/21/18 Given Ambulat ory Pharmac y influenza, injectable, quadrivalent 2018 [id number] influenza , injectabl e, quadrival ent 11/21/18 Given Ambulat ory Pharmac y INFLUENZA, SPLIT VIRUS, QUADRIVALENT, PF 1 2018 150 complet ed HISTORICA L INFORMATI ON - FROM OTHER REGISTRY, [facility] influenza, injectable, quadrivalent, preservative free 2018 ALUL, () Not Given influenza , injectabl e, quadrival ent, preservat hilario free DoD influenza, injectable, quadrivalent, contains preservative 1 2018 Unknown, [facility] [id number] influenza , injectabl e, quadrival ent, contains preservat hilario DoD tuberculin purified protein derivative 2017 zzLef t Arm [id number] 96 sanofi pasteur complet ed Patient Tolerance : Negative Ambulat ory Pharmac y tuberculin skin test; purified protein derivative solution, intradermal 1 2017 Unknown, Provider [id number] 96 Sanofi Pasteur ([facility]) complet ed tuberculi n skin test; purified protein derivativ e solution, intraderm al DoD tuberculin purified protein derivative 2016 zzLef t Arm [id number] 96 sanofi pasteur complet ed Patient Tolerance : Negative Ambulat ory Pharmac y tuberculin skin test; purified protein derivative solution, intradermal 1 2016 Unknown, Provider [id number] 96 Sanofi Pasteur ([facility]) complet ed tuberculi n skin test; purified protein derivativ e solution, intraderm al DoD influenza, injectable, quadrivalent- pf 2014 zzLef t Arm [id number] 150 [facility] complet ed influenza , injectabl e, quadrival ent-pf 12/18/14 Given Ambulat ory Pharmac y Influenza, injectable, quadrivalent, preservative free 1 2014 Unknown, Provider [id number] 150 [facility] complet [facility] Influenza , injectabl e, quadrival ent, preservat hilario free DoD measles/mumps /rubella virus vaccine 2010 zzRig ht Arm [id number] [employer] Inc complet ed measles/m umps/rube lla virus vaccine 08/24/10 Given Ambulat ory Pharmac y measles, mumps and rubella virus vaccine 2 2010 Unknown, Provider [id number] Merck (MSD) complet ed measles, mumps and rubella virus vaccine DoD tuberculin purified protein derivative 2009 zzLef t Arm [id number] 96 sanofi pasteur complet ed Patient Tolerance : Negative Ambulat ory Pharmac y tuberculin skin test; purified protein derivative solution, intradermal 1 2009 Unknown, Provider [id number] 96 Sanofi Pasteur ([facility]) complet ed tuberculi n skin test; purified protein derivativ e solution, intraderm al DoD tuberculin purified protein derivative 2006 zzLef t Arm [id number] 96 sanofi pasteur complet ed Patient Tolerance : Negative Ambulat ory Pharmac y tuberculin skin test; purified protein derivative solution, intradermal 1 2006 Unknown, Provider [id number] 96 Sanofi Pasteur ([facility]) complet ed tuberculi n skin test; purified protein derivativ e solution, intraderm al DoD tetanus-dipht h toxoids (Td) adult/adol 2006 [id number] 09 sanofi pasteur complet ed tetanus-d iphth toxoids (Td) adult/ado l 02/27/06 Given Ambulat ory Pharmac y tetanus-dipht h toxoids (Td) adult/adol 2006 zzRig ht Arm [id number] 09 sanofi pasteur complet ed tetanus-d iphth toxoids (Td) adult/ado l 02/27/06 Given Ambulat ory Pharmac y tetanus and diphtheria toxoids, adsorbed, preservative free, for adult use (2 Lf of tetanus toxoid and 2 Lf of diphtheria toxoid) 1 2006 Unknown, Provider [id number] 09 Sanofi Pasteur ([facility]) complet ed tetanus and diphtheri a toxoids, adsorbed, preservat hilario free, for adult use (2 Lf of tetanus toxoid and 2 Lf of diphtheri a toxoid) DoD tuberculin purified protein derivative 2005 zzLef t Arm [id number] 96 sanofi pasteur complet ed Patient Tolerance : Negative Ambulat ory Pharmac y tuberculin skin test; purified protein derivative solution, intradermal 1 2005 Unknown, Provider [id number] 96 Sanofi Pasteur ([facility]) complet ed tuberculi n skin test; purified protein derivativ e solution, intraderm al DoD typhoid vaccine, inactivated 2004 [id number] sanofi pasteur complet ed typhoid vaccine, inactivat ed 04/30/04 Given Ambulat ory Pharmac y tuberculin purified protein derivative 2004 zzLef t Arm [id number] 96 sanofi pasteur complet ed Patient Tolerance : Negative Ambulat ory Pharmac y typhoid vaccine, inactivated 2004 zzRig ht Arm [id number] 101 sanofi pasteur complet ed typhoid vaccine, inactivat ed 04/30/04 Given Ambulat ory Pharmac y typhoid vaccine, parenteral, other than acetone-kille d, dried 1 2004 Unknown, Provider [id number] Sanofi Pasteur ([facility]) complet ed typhoid vaccine, parentera l, other than acetone-k illed, dried DoD tuberculin skin test; purified protein derivative solution, intradermal 1 2004 Unknown, Provider [id number] 96 Sanofi Pasteur ([facility]) complet ed tuberculi n skin test; purified protein derivativ e solution, intraderm al DoD tuberculin purified protein derivative 2002 zzLef t Arm [id number] 96 sanofi pasteur complet ed Patient Tolerance : Negative Ambulat ory Pharmac y tuberculin skin test; purified protein derivative solution, intradermal 1 2002 Unknown, Provider [id number] 96 Sanofi Pasteur ([facility]) complet ed tuberculi n skin test; purified protein derivativ e solution, intraderm al DoD typhoid Vi capsular polysaccharid e vac 2002 [id number] sanofi pasteur complet ed typhoid Vi capsular polysacch aride vac 04/09/02 Given Ambulat ory Pharmac y meningococcal polysaccharid e (MPSV4) 2002 [id number] sanofi pasteur complet ed meningoco ccal polysacch aride (MPSV4) 04/09/02 Given Ambulat ory Pharmac y typhoid Vi capsular polysaccharid e vac 2002 zzLef t Arm [id number] sanofi pasteur complet ed typhoid Vi capsular polysacch aride vac 04/09/02 Given Ambulat ory Pharmac y meningococcal polysaccharid e (MPSV4) 2002 zzLef t Arm [id number] sanofi pasteur complet ed meningoco ccal polysacch aride (MPSV4) 04/09/02 Given Ambulat ory Pharmac y meningococcal polysaccharid e vaccine (MPSV4) 1 2002 Unknown, Provider [id number] 32 Sanofi Pasteur ([facility]) complet ed meningoco ccal polysacch aride vaccine (MPSV4) DoD typhoid Vi capsular polysaccharid e vaccine 1 2002 Unknown, Provider [id number] Sanofi Pasteur ([facility]) complet ed typhoid Vi capsular polysacch aride vaccine DoD influenza virus vaccine, whole virus 2001 [id number] 16 sanofi pasteur complet ed influenza virus vaccine, whole virus 12/07/01 Given Ambulat ory Pharmac y influenza virus vaccine, whole virus 2001 [id number] 16 sanofi pasteur complet ed influenza virus vaccine, whole virus 12/07/01 Given Ambulat ory Pharmac y influenza virus vaccine, whole virus 1 2001 Unknown, Provider [id number] 16 Sanofi Pasteur ([facility]) complet ed influenza virus vaccine, whole virus DoD tuberculin purified protein derivative 2001 zzLef t Arm [id number] 96 sanofi pasteur complet ed Patient Tolerance : Negative Ambulat ory Pharmac y tuberculin skin test; purified protein derivative solution, intradermal 1 2001 Unknown, Provider [id number] 96 Sanofi Pasteur ([facility]) complet ed tuberculi n skin test; purified protein derivativ e solution, intraderm al DoD influenza virus vaccine, whole virus 2000 [id number] 16 sanofi pasteur complet ed influenza virus vaccine, whole virus 12/18/00 Given Ambulat ory Pharmac y tuberculin purified protein derivative 2000 zzLef t Arm [id number] 96 sanofi pasteur complet ed Patient Tolerance : Negative Ambulat ory Pharmac y influenza virus vaccine, whole virus 2000 zzLef t Arm [id number] 16 sanofi pasteur complet ed influenza virus vaccine, whole virus 12/18/00 Given Ambulat ory Pharmac y influenza virus vaccine, whole virus 1 2000 Unknown, Provider [id number] 16 Sanofi Pasteur ([facility]) complet ed influenza virus vaccine, whole virus DoD tuberculin skin test; purified protein derivative solution, intradermal 1 2000 Unknown, Provider [id number] 96 Sanofi Pasteur ([facility]) complet ed tuberculi n skin test; purified protein derivativ e solution, intraderm al DoD influenza virus vaccine, whole virus 1999 [id number] 16 [facility] complet ed influenza virus vaccine, whole virus 02/08/00 Given Ambulat ory Pharmac y influenza virus vaccine, whole virus 1999 zzL t Arm [id number] 16 [facility] complet ed influenza virus vaccine, whole virus 02/08/00 Given Ambulat ory Pharmac y influenza virus vaccine, whole virus 1 1999 Unknown, Provider [id number] [facility] complet ed influenza virus vaccine, whole virus DoD tuberculin purified protein derivative 1999 zzL t Arm [id number] [employer] complet ed Patient Tolerance : Negative Ambulat ory Pharmac y tuberculin skin test; purified protein derivative solution, intradermal 1 1999 Unknown, Provider [id number] 96 [employer] (MSD) complet ed tuberculi n skin test; purified protein derivativ e solution, intraderm al DoD tuberculin purified protein derivative 1998 2506-11 96 [facility] complet ed Patient Tolerance : Negative Ambulat ory Pharmac y tuberculin skin test; purified protein derivative solution, intradermal 1 1998 Unknown, Provider [id number] 96 [facility] (CON) complet ed tuberculi n skin test; purified protein derivativ e solution, intraderm al DoD influenza virus vaccine, whole virus 1998 [id number] 16 [facility] complet ed influenza virus vaccine, whole virus 12/02/98 Given Ambulat ory Pharmac y influenza virus vaccine, whole virus 1998 [id number] 16 [facility] complet ed influenza virus vaccine, whole virus 12/02/98 Given Ambulat ory Pharmac y influenza virus vaccine, whole virus 1 1998 Unknown, Provider [id number] 16 [facility] (CON) complet ed influenza virus vaccine, whole virus DoD typhoid vaccine, inactivated 1998 [id number] sanofi pasteur complet ed typhoid vaccine, inactivat ed 07/10/98 Given Ambulat ory Pharmac y typhoid vaccine, inactivated 1998 [id number] 101 sanofi pasteur complet ed typhoid vaccine, inactivat ed 07/10/98 Given Ambulat ory Pharmac y typhoid vaccine, parenteral, other than acetone-kille d, dried 2 1998 Unknown, Provider [id number] Sanofi Pasteur ([facility]) complet ed typhoid vaccine, parentera l, other than acetone-k illed, dried DoD influenza virus vaccine, whole virus [id number] 16 [facility] complet ed influenza virus vaccine, whole virus 11/25/97 Given Ambulat ory Pharmac y influenza virus vaccine, whole virus [id number] 16 [facility] complet ed influenza virus vaccine, whole virus 11/25/97 Given Ambulat ory Pharmac y influenza virus vaccine, whole virus 2 1997 Unknown, Provider [id number] 16 [facility] (CON) complet ed influenza virus vaccine, whole virus DoD tuberculin purified protein derivative 1997 2478-11 96 [facility] complet ed Patient Tolerance : Negative Ambulat ory Pharmac y tuberculin skin test; purified protein derivative solution, intradermal 1 1997 Unknown, Provider [id number] 96 [facility] (CON) complet ed tuberculi n skin test; purified protein derivativ e solution, intraderm al [facility] influenza virus vaccine, whole virus 1997 [id number] 16 [facility] complet ed influenza virus vaccine, whole virus 09/24/97 Given Ambulat ory Pharmac y influenza virus vaccine, whole virus 1997 [id number] 16 [facility] complet ed influenza virus vaccine, whole virus 09/24/97 Given Ambulat ory Pharmac y influenza virus vaccine, whole virus 1 1997 Unknown, Provider [id number] 16 [facility] (CON) complet ed influenza virus vaccine, whole virus DoD hepatitis A adult vaccine 1996 [id number] 2 52 [employer] complet ed hepatitis A adult vaccine 10/30/96 Given Ambulat ory Pharmac y hepatitis B adult vaccine 1996 [id number] 43 [employer] complet ed hepatitis B adult vaccine 10/30/96 Given Ambulat ory Pharmac y hepatitis A adult vaccine 1996 [id number] 2 52 [employer] complet ed hepatitis A adult vaccine 10/30/96 Given Ambulat ory Pharmac y hepatitis B adult vaccine 1996 [id number] 43 [employer] complet ed hepatitis B adult vaccine 10/30/96 Given Ambulat ory Pharmac y hepatitis B vaccine, adult dosage 3 1996 Unknown, Provider [id number] 43 [employer] (SKB) complet ed hepatitis B vaccine, adult dosage DoD hepatitis A vaccine, adult dosage 2 1996 Unknown, Provider [id number] 2 52 [employer] (SKB) complet ed hepatitis A vaccine, adult dosage DoD tuberculin purified protein derivative 1996 96 [facility] complet ed Patient Tolerance : Negative Ambulat ory Pharmac y tuberculin skin test; purified protein derivative solution, intradermal 1 1996 Unknown, Provider 96 [facility] (CON) complet ed tuberculi n skin test; purified protein derivativ e solution, intraderm al DoD hepatitis B adult vaccine 1996 [id number] 2 43 [employer] complet ed hepatitis B adult vaccine 05/30/96 Given Ambulat ory Pharmac y hepatitis B adult vaccine 1996 [id number] 2 43 [employer] complet ed hepatitis B adult vaccine 05/30/96 Given Ambulat ory Pharmac y hepatitis B vaccine, adult dosage 2 1996 Unknown, Provider [id number] 2 43 [employer] (SKB) complet ed hepatitis B vaccine, adult dosage DoD yellow fever vaccine 1996 [id number] 37 [employer] complet ed yellow fever vaccine 05/07/96 Given Ambulat ory Pharmac y yellow fever vaccine 1996 [id number] 37 [employer] complet ed yellow fever vaccine 05/07/96 Given Ambulat ory Pharmac y yellow fever vaccine 1 1996 Unknown, Provider [id number] 37 [employer] (SKB) complet ed yellow fever vaccine DoD hepatitis A adult vaccine 1996 52 complet ed hepatitis A adult vaccine 04/29/96 Given Ambulat ory Pharmac y hepatitis B adult vaccine 1996 43 complet ed hepatitis B adult vaccine 04/29/96 Given Ambulat ory Pharmac y typhoid vaccine, inactivated 1996 101 complet ed typhoid vaccine, inactivat ed 04/29/96 Given Ambulat ory Pharmac y hepatitis A adult vaccine 1996 52 complet ed hepatitis A adult vaccine 04/29/96 Given Ambulat ory Pharmac y hepatitis B adult vaccine 1996 43 complet ed hepatitis B adult vaccine 04/29/96 Given Ambulat ory Pharmac y typhoid vaccine, inactivated 1996 101 complet ed typhoid vaccine, inactivat ed 04/29/96 Given Ambulat ory Pharmac y typhoid vaccine, parenteral, other than acetone-kille d, dried 1 1996 Unknown, Provider 41 () complet ed typhoid vaccine, parentera l, other than acetone-k illed, dried DoD hepatitis B vaccine, adult dosage 1 1996 Unknown, Provider 43 () complet ed hepatitis B vaccine, adult dosage DoD hepatitis A vaccine, adult dosage 1 1996 Unknown, Provider 52 () complet ed hepatitis A vaccine, adult dosage DoD meningococcal polysaccharid e (MPSV4) 1995 32 complet ed meningoco ccal polysacch aride (MPSV4) 10/20/95 Given Ambulat ory Pharmac y tetanus-dipht h toxoids (Td) adult/adol 1995 09 complet ed tetanus-d iphth toxoids (Td) adult/ado l 10/20/95 Given Ambulat ory Pharmac y measles/mumps /rubella virus vaccine 1995 03 complet ed measles/m umps/rube lla virus vaccine 10/20/95 Given Ambulat ory Pharmac y poliovirus vaccine, live, oral 1995 02 complet ed polioviru s vaccine, live, oral 10/20/95 Given Ambulat ory Pharmac y tuberculin purified protein derivative 1995 96 complet ed Patient Tolerance : Negative Ambulat ory Pharmac y meningococcal polysaccharid e (MPSV4) 1995 32 complet ed meningoco ccal polysacch aride (MPSV4) 10/20/95 Given Ambulat ory Pharmac y tetanus-dipht h toxoids (Td) adult/adol 1995 09 complet ed tetanus-d iphth toxoids (Td) adult/ado l 10/20/95 Given Ambulat ory Pharmac y measles/mumps /rubella virus vaccine 1995 03 complet ed measles/m umps/rube lla virus vaccine 10/20/95 Given Ambulat ory Pharmac y poliovirus vaccine, live, oral 1995 02 complet ed polioviru s vaccine, live, oral 10/20/95 Given Ambulat ory Pharmac y trivalent poliovirus vaccine, live, oral 5 1995 Unknown, Provider 02 () complet ed trivalent polioviru s vaccine, live, oral DoD measles, mumps and rubella virus vaccine 1 1995 Unknown, Provider 03 () complet ed measles, mumps and rubella virus vaccine DoD tetanus and diphtheria toxoids, adsorbed, preservative free, for adult use (2 Lf of tetanus toxoid and 2 Lf of diphtheria toxoid) 1 1995 Unknown, Provider 09 () complet ed tetanus and diphtheri a toxoids, adsorbed, preservat hilario free, for adult use (2 Lf of tetanus toxoid and 2 Lf of diphtheri a toxoid) DoD meningococcal polysaccharid e vaccine (MPSV4) 1 1995 Unknown, Provider 32 () complet ed meningoco ccal polysacch aride vaccine (MPSV4) DoD tuberculin skin test; purified protein derivative solution, intradermal 1 1995 Unknown, Provider 96 () complet ed tuberculi n skin test; purified protein derivativ e solution, intraderm al DoD Results Combined list of recent chemistry, hematology and other laboratory results from [employer] and [employer], ranging from 15 months to all on record, depending upon the facility. Order Name Results Value Reference Range Date Interpretation Specimen Comments Source AP Specimens AP Surgical Pathology Patient: Kelsey Humphries Specimen #: [id number] Patholog ist: Ryne Ruiz , [facility], [facility] Accessio n: 5 [facility] DEPARTME NT OF PATHOLOG Y [address] [place] [phone] Surgical Patholog y Report Patient: Kelsey Humphries Specimen #: [id number] [facility] ID:: [id number] Encounte r #: [id number] Taken: 5 15:17 /Age: 6 4 (Age: 49) Received : 5 06:42 Physicia n(s): ADAMA NICHOLAS Reported : 5 Specimen (s) Received Taken Rec Carol zarate epicclaudia le 5 15:17 5 06:42 Final Diagnosi s SKIN, LEFT MEDIAL EPIDONDY LE, SHAVE BIOPSY: - DERMATOF IBROMA. Elect pavanicall y Signed [facility]/09/17 Ryen Ruiz , Lt Col, , [employer] Clinical Diagnosi s and History L arm lesion Pre-Oper ative Diagnosi s Skin lesion Post-Ope rative Diagnosi s Skin lesion status post biopsy Gross Descript ion Labeled Kelsey Humphries 1975 L arm lesion. Received in formalin is a 0.6 x 0.6 x 0.2 cm piece of pale white tissue. The specimen surface is complete ly covered by a slightly raised dome shaped in a smooth surface lesion but directly abuts the specimen edge. Inked, quadrase cted, ET 1. [facility] CPT Codes: A; 28396 09/10 6130C-A [id number] Th [facility] CBC LEUKOCYTES [#/VOLUME] IN BLOOD BY AUTOMATED COUNT 7.4 10*3/uL 3.6 - 11.2 09/05 Specimen Type: BLOOD No comment entered. Ordering Provider: MARCELO FOSTER A Report Released Date/Time: Aug 30, 2024 04:34 PM Reporting Lab: [facility] [address] [facility] [address] Performing Lab: [facility] [address] [place] [phone] [facility] CBC ERYTHROCYTE S [#/VOLUME] IN BLOOD BY AUTOMATED COUNT 4.58 10*6/uL 3.60 - 5.00 09/05 Specimen Type: BLOOD No comment entered. Ordering Provider: MARCELO FOSTER JESSICA A Report Released Date/Time: Aug 30, 2024 04:34 PM Reporting Lab: [facility] [address] [facility] [phone] Performing Lab: [facility] [address] [place] [phone] [facility] CBC HEMOGLOBIN [MASS/VOLUM E] IN BLOOD 13.5 g/dL 11.0 - 14.9 09/05 Specimen Type: BLOOD No comment entered. Ordering Provider: MARCELO FOSTER Report Released Date/Time: Aug 30, 2024 04:34 PM Reporting Lab: [facility] [address] [place] [phone] Performing Lab: [facility] [address] [place] [address] [phone] [place] [address] CBC HEMATOCRIT [VOLUME FRACTION] OF BLOOD 42.9 32.6 - 43.4 09/05 Specimen Type: BLOOD No comment entered. Ordering Provider: MARCELO FOSTER Report Released Date/Time: Aug 30, 2024 04:34 PM Reporting Lab: [facility] [address] [place] [phone] Performing Lab: [address] [phone] CBC MCV [ENTITIC VOLUME] BY AUTOMATED COUNT 93.7 fL 80.0 - 100.0 09/05 Specimen Type: BLOOD No comment entered. Ordering Provider: MARCELO FOSTER Report Released Date/Time: Aug 30, 2024 04:34 PM Reporting Lab: [facility] [address] [place] [phone] Performing Lab: [facility] [address] [place] [phone] [place] [address] CBC MCH [ENTITIC MASS] BY AUTOMATED COUNT 29.5 pg 27.0 - 34.0 09/05 Specimen Type: BLOOD No comment entered. Ordering Provider: MARCELO FOSTER Report Released Date/Time: Aug 30, 2024 04:34 PM Reporting Lab: [facility] [address] [place] [phone] Performing Lab: [facility] [address] [place] [phone] CBC MCHC [MASS/VOLUM E] BY AUTOMATED COUNT 31.5 g/dL 33.0 - 36.0 09/05 L Specimen Type: BLOOD No comment entered. Ordering Provider: FOSTER,ARM JESSICA A Report Released Date/Time: Aug 30, 2024 04:34 PM Reporting Lab: [facility] [address] [place] [phone] Performing Lab: [facility] [address] [facility] [phone] [facility] CBC PLATELETS [#/VOLUME] IN BLOOD BY AUTOMATED COUNT 248 10*3/uL 150 - 400 09/05 Specimen Type: BLOOD No comment entered. Ordering Provider: MARCELO FOSTER A Report Released Date/Time: Aug 30, 2024 04:34 PM Reporting Lab: [facility] [address] [place] [phone] Performing Lab: [facility] [address] [place] [phone] [facility] CBC PLATELET MEAN VOLUME [ENTITIC VOLUME] IN BLOOD BY AUTOMATED COUNT 12.4 fL 7.5 - 11.2 09/05 H Specimen Type: BLOOD No comment entered. Ordering Provider: MARCELO FOSTER A Report Released Date/Time: Aug 30, 2024 04:34 PM Reporting Lab: [facility] [phone] Performing Lab: [facility] [address] [place] [phone] [facility] CBC ERYTHROCYTE DISTRIBUTIO N WIDTH [RATIO] BY AUTOMATED COUNT 13.2 11.8 - 15.1 09/05 Specimen Type: BLOOD No comment entered. Ordering Provider: MARCELO FOSTER A Report Released Date/Time: Aug 30, 2024 04:34 PM Reporting Lab: [facility] [address] Performing Lab: [facility] [address] [place] [phone] [facility] CBC LYMPHOCYTES /100 LEUKOCYTES IN BLOOD BY AUTOMATED COUNT 26 09/05 Specimen Type: BLOOD No comment entered. Ordering Provider: MARCELO FOSTER A Report Released Date/Time: Aug 30, 2024 04:34 PM Reporting Lab: [facility] [address] [facility] [phone] Performing Lab: [facility] [address] [facility] [phone] [facility] CBC MONOCYTES/1 00 LEUKOCYTES IN BLOOD BY AUTOMATED COUNT 5 09/05 Specimen Type: BLOOD No comment entered. Ordering Provider: MARCELO FOSTER A Report Released Date/Time: Aug 30, 2024 04:34 PM Reporting Lab: [facility] [address] [facility] [phone] Performing Lab: [facility] [address] [facility] [phone] [facility] CBC NEUTROPHILS /100 LEUKOCYTES IN BLOOD BY AUTOMATED COUNT 67 09/05 Specimen Type: BLOOD No comment entered. Ordering Provider: MARCELO FOSTER A Report Released Date/Time: Aug 30, 2024 04:34 PM Reporting Lab: [facility] [address] [facility] [address] Performing Lab: [facility] [address] [facility] [address] [facility] CBC EOSINOPHILS /100 LEUKOCYTES IN BLOOD BY AUTOMATED COUNT 1 09/05 Specimen Type: BLOOD No comment entered. Ordering Provider: MARCELO FOSTER A Report Released Date/Time: Aug 30, 2024 04:34 PM Reporting Lab: [facility] [address] [facility] [phone] Performing Lab: [facility] [address] [facility] [phone] [facility] CBC BASOPHILS/1 00 LEUKOCYTES IN BLOOD BY AUTOMATED COUNT 0 09/05 Specimen Type: BLOOD No comment entered. Ordering Provider: MARCELO FOSTER A Report Released Date/Time: Aug 30, 2024 04:34 PM Reporting Lab: [facility] [address] [facility] [address] Performing Lab: [facility] [address] [facility] [phone] [facility] CBC LYMPHOCYTES [#/VOLUME] IN BLOOD BY AUTOMATED COUNT 1.93 10*3/uL 0.77 - 4.50 09/05 Specimen Type: BLOOD No comment entered. Ordering Provider: MARCELO FOSTER Report Released Date/Time: Aug 30, 2024 04:34 PM Reporting Lab: [place] [phone] Performing Lab: [address] [phone] [place] [address] CBC MONOCYTES [#/VOLUME] IN BLOOD BY AUTOMATED COUNT 0.37 10*3/uL 0.19 - 0.80 09/05 Specimen Type: BLOOD No comment entered. Ordering Provider: MARCELO FOSTER A Report Released Date/Time: Aug 30, 2024 04:34 PM Reporting Lab: [address] [phone] Performing Lab: [address] [phone] [place] [address] CBC NEUTROPHILS [#/VOLUME] IN BLOOD BY AUTOMATED COUNT 4.97 10*3/uL 2.10 - 8.00 09/05 Specimen Type: BLOOD No comment entered. Ordering Provider: MARCELO FOSTER A Report Released Date/Time: Aug 30, 2024 04:34 PM Reporting Lab: [address] [phone] Performing Lab: [address] [phone] [place] [address] CBC EOSINOPHILS [#/VOLUME] IN BLOOD BY AUTOMATED COUNT 0.07 10*3/uL 0.00 - 0.60 09/05 Specimen Type: BLOOD No comment entered. Ordering Provider: MARCELO FOSTER A Report Released Date/Time: Aug 30, 2024 04:34 PM Reporting Lab: [address] [phone] Performing Lab: [facility] [address] [facility] [address] [facility] CBC BASOPHILS [#/VOLUME] IN BLOOD BY AUTOMATED COUNT 0.03 10*3/uL 0.00 - 0.20 09/05 Specimen Type: BLOOD No comment entered. Ordering Provider: MARCELO FOSTER Report Released Date/Time: Aug 30, 2024 04:34 PM Reporting Lab: [facility] [address] [facility] [address] Performing Lab: [facility] [address] [facility] [address] [facility] COMPREHEN SIVE METABOLIC PANEL CREATININE [MASS/VOLUM E] IN SERUM OR PLASMA 0.74 mg/dL 0.6 - 1.1 09/05 Specimen Type: PLASMA Comment: No hemolysis noted. Ordering Provider: MARCELO FOSTER A Report Released Date/Time: Aug 30, 2024 04:34 PM Reporting Lab: [facility] [address] [facility] [phone] Performing Lab: [facility] [address] [facility] [address] [facility] COMPREHEN SIVE METABOLIC PANEL UREA NITROGEN [MASS/VOLUM E] IN SERUM OR PLASMA 20.0 mg/dL 9.0 - 25.0 09/05 Specimen Type: PLASMA Comment: No hemolysis noted. Ordering Provider: MARCELO FOSTER Report Released Date/Time: Aug 30, 2024 04:34 PM Reporting Lab: [facility] [address] [facility] [address] Performing Lab: [facility] [address] [place] [phone] [facility] COMPREHEN SIVE METABOLIC PANEL GLUCOSE [MASS/VOLUM E] IN SERUM OR PLASMA 76 mg/dL 72 - 99 09/05 Specimen Type: PLASMA Comment: No hemolysis noted. Ordering Provider: MARCELO FOSTER Report Released Date/Time: Aug 30, 2024 04:34 PM Reporting Lab: [facility] [address] [facility] [address] Performing Lab: [facility] [address] [facility] [address] [facility] COMPREHEN SIVE METABOLIC PANEL SODIUM [MOLES/VOLU ME] IN SERUM OR PLASMA 136 meq/L 136 - 145 09/05 Specimen Type: PLASMA Comment: No hemolysis noted. Ordering Provider: MARCELO FOSTER Report Released Date/Time: Aug 30, 2024 04:34 PM Reporting Lab: [facility] [address] [facility] [address] Performing Lab: [facility] [address] [facility] [address] [facility] COMPREHEN SIVE METABOLIC PANEL POTASSIUM [MOLES/VOLU ME] IN SERUM OR PLASMA 3.8 meq/L 3.5 - 5 09/05 Specimen Type: PLASMA Comment: No hemolysis noted. Ordering Provider: MARCELO FOSTER A Report Released Date/Time: Aug 30, 2024 04:34 PM Reporting Lab: [facility] [address] [facility] [address] Performing Lab: [facility] [address] [facility] [address] [facility] COMPREHEN SIVE METABOLIC PANEL CHLORIDE [MOLES/VOLU ME] IN SERUM OR PLASMA 103 meq/L 98 - 107 09/05 Specimen Type: PLASMA Comment: No hemolysis noted. Ordering Provider: MARCELO FOSTER A Report Released Date/Time: Aug 30, 2024 04:34 PM Reporting Lab: [facility] [address] [facility] [address] Performing Lab: [facility] [address] [facility] [address] [facility] COMPREHEN SIVE METABOLIC PANEL CARBON DIOXIDE, TOTAL [MOLES/VOLU ME] IN SERUM OR PLASMA 26 meq/L 22 - 31 09/05 Specimen Type: PLASMA Comment: No hemolysis noted. Ordering Provider: FOSTER,ARM JESSICA A Report Released Date/Time: Aug 30, 2024 04:34 PM Reporting Lab: [facility] [address] [facility] [address] Performing Lab: [facility] [address] [facility] [address] [facility] COMPREHEN SIVE METABOLIC PANEL CALCIUM [MASS/VOLUM E] IN SERUM OR PLASMA 9.4 mg/dL 8.4 - 10.4 09/05 Specimen Type: PLASMA Comment: No hemolysis noted. Ordering Provider: MARCELO FOSTER A Report Released Date/Time: Aug 30, 2024 04:34 PM Reporting Lab: [facility] [address] [facility] [address] Performing Lab: [facility] [phone] [place] [address] COMPREHEN SIVE METABOLIC PANEL PROTEIN [MASS/VOLUM E] IN SERUM OR PLASMA 7.5 g/dL 6 - 8.6 09/05 Specimen Type: PLASMA Comment: No hemolysis noted. Ordering Provider: MARCELO FOSTER A Report Released Date/Time: Aug 30, 2024 04:34 PM Reporting Lab: [facility] [address] [facility] [address] Performing Lab: [facility] [address] [facility] [address] [facility] COMPREHEN SIVE METABOLIC PANEL ALBUMIN [MASS/VOLUM E] IN SERUM OR PLASMA 4.2 g/dL 3.4 - 5 09/05 Specimen Type: PLASMA Comment: No hemolysis noted. Ordering Provider: MARCELO FOSTER A Report Released Date/Time: Aug 30, 2024 04:34 PM Reporting Lab: [facility] [address] [facility] [address] Performing Lab: [facility] [address] [place] [phone] [facility] COMPREHEN SIVE METABOLIC PANEL BILIRUBIN.T OTAL [MASS/VOLUM E] IN SERUM OR PLASMA 0.3 mg/dL 0.2 - 1.2 09/05 Specimen Type: PLASMA Comment: No hemolysis noted. Ordering Provider: MARCELO FOSTER Report Released Date/Time: Aug 30, 2024 04:34 PM Reporting Lab: [facility] [address] [facility] [address] Performing Lab: [facility] [address] [facility] [address] [facility] COMPREHEN SIVE METABOLIC PANEL ALKALINE PHOSPHATASE [ENZYMATIC ACTIVITY/VO LUME] IN SERUM OR PLASMA 63 U/L 40 - 150 09/05 Specimen Type: PLASMA Comment: No hemolysis noted. Ordering Provider: MARCELO FOSTER A Report Released Date/Time: Aug 30, 2024 04:34 PM Reporting Lab: [facility] [address] [facility] [address] Performing Lab: [facility] [address] [place] [phone] [facility] COMPREH SIVE METABOLIC PANEL ASPARTATE AMINOTRANSF ERASE [ENZYMATIC ACTIVITY/VO LUME] IN SERUM OR PLASMA 37 U/L 5 - 34 09/05 H Specimen Type: PLASMA Comment: No hemolysis noted. Ordering Provider: MARCELO FOSTER Report Released Date/Time: Aug 30, 2024 04:34 PM Reporting Lab: [facility] [address] [facility] [address] Performing Lab: [facility] [address] [facility] [address] [facility] COMPREHEN SIVE METABOLIC PANEL ALANINE AMINOTRANSF ERASE [ENZYMATIC ACTIVITY/VO LUME] IN SERUM OR PLASMA 12 U/L 8 - 40 09/05 Specimen Type: PLASMA Comment: No hemolysis noted. Ordering Provider: MARCELO FOSTER Report Released Date/Time: Aug 30, 2024 04:34 PM Reporting Lab: [facility] [address] [facility] [address] Performing Lab: [facility] [address] [facility] [address] [facility] COMPREHEN SIVE METABOLIC PANEL GLOMERULAR FILTRATION RATE/1.73 SQ M.PREDICTED [VOLUME RATE/AREA] IN SERUM, PLASMA OR BLOOD BY CREATININE- BASED FORMULA (CKD-EPI 2020) 97.9 60 09/05 Specimen Type: PLASMA Comment: No hemolysis noted. Ordering Provider: MARCELO FOSTER Report Released Date/Time: Aug 30, 2024 04:34 PM Reporting Lab: [facility] [address] [facility] [address] Performing Lab: [facility] [address] [facility] [address] [facility] ESTRADIOL ESTRADIOL (E2) [MASS/VOLUM E] IN SERUM OR PLASMA 97 pg/mL 09/05 Specimen Type: SERUM Comment: Unable to flag abnormal result(s), please refer to reference range(s) below: Females: Follicular Phase: 19 - 144 pg/mL Mid-Cycle: 64 - 357 pg/mL Luteal Phase: 56 - 214 pg/mL Post-Menopa usal: <= 31 pg/mL Reference range established on post-pubert al patient population. No pre-puberta l reference range established using this assay. For any patients for whom low Estradiol levels are anticipated (e.g. males, pre-puberta l children, and hypogonadal /post-menop ausal females), the [email or web address] Estradiol, Ultrasensit hilario, LCMSMS assay is recommended (order code 09303). Please note: Patients being treated with the drug fulvestrant [Faslodex(R )] have demonstrate d significant interferenc e in immunoassay methods for estradiol measurement . The cross reactivity could lead to falsely elevated estradiol test results leading to an inappropria te clinical assessment of estrogen status. [employer] order code [id number] diol, Ultrasensit hilario LC/MS/MS demonstrate s negligible cross reactivity with fulvestrant . Test Performed by Farhad Valdez, [email or web address], [address] [place] [address] Raven Hector M.D., Ph.D., Director of Laboratorie s , CLIA [id number] Ordering Provider: MARCELO FOSTER Report Released Date/Time: Aug 30, 2024 04:43 PM Reporting Lab: [facility] [address] [facility] [address] Performing Lab: [facility] [address] [place] [address] [facility] FSH (STL-MA) FOLLITROPIN [UNITS/VOLU ME] IN SERUM OR PLASMA 34.0 m[IU]/mL 09/05 Specimen Type: SERUM Comment: Unable to flag abnormal result(s), please refer to reference range(s) below: Adult female reference ranges for FSH: Follicular Phase: 2.5-10.2 mIU/mL Mid-Cycle Peak: 3.1-17.7 mIU/mL Luteal Phase: 1.5-9.1 mIU/mL Postmenopau amanda: 23.0-116.3 mIU/mL Test Performed by [facility], [facility], [address] [place] [address] Raven Hector M.D., Ph.D., Director of Laboratorie s , [facility] [id number] Ordering Provider: MARCELO FOSTER Report Released Date/Time: Aug 30, 2024 04:43 PM Reporting Lab: [facility] [address] [place] [phone] Performing Lab: [address] [facility] HGA1C HEMOGLOBIN A1C/HEMOGLO BIN.TOTAL IN BLOOD 5.4 4.0 - 6.0 09/05 Specimen Type: BLOOD No comment entered. Ordering Provider: MARCELO FOSTER Report Released Date/Time: Aug 30, 2024 04:34 PM Reporting Lab: [facility] [address] [facility] [address] Performing Lab: [facility] [address] [place] [phone] [facility] LIPID PANEL (STL) CHOLESTEROL [MASS/VOLUM E] IN SERUM OR PLASMA 213 mg/dL 0 - 200 09/05 H Specimen Type: PLASMA Comment: No hemolysis noted. Ordering Provider: MARCELO FOSTER Report Released Date/Time: Aug 30, 2024 04:34 PM Reporting Lab: [facility] [address] [place] [phone] Performing Lab: [facility] [address] [place] [phone] [facility] LIPID PANEL (STL) TRIGLYCERID E [MASS/VOLUM E] IN SERUM OR PLASMA 132 mg/dL 0 - 150 09/05 Specimen Type: PLASMA Comment: No hemolysis noted. Ordering Provider: MARCELO FOSTER Report Released Date/Time: Aug 30, 2024 04:34 PM Reporting Lab: [address] [phone] Performing Lab: [address] [address] [facility] LIPID PANEL (STL) CHOLESTEROL IN LDL [MASS/VOLUM E] IN SERUM OR PLASMA BY CALCULATION 132 mg/dL 09/05 Specimen Type: PLASMA Comment: No hemolysis noted. Ordering Provider: MARCELO FOSTER Report Released Date/Time: Aug 30, 2024 04:34 PM Reporting Lab: [address] [address] Performing Lab: [facility] [address] [place] [phone] [facility] LIPID PANEL (STL) CHOLESTEROL IN HDL [MASS/VOLUM E] IN SERUM OR PLASMA 55 mg/dL 40 09/05 Specimen Type: PLASMA Comment: No hemolysis noted. Ordering Provider: MARCELO FOSTER Report Released Date/Time: Aug 30, 2024 04:34 PM Reporting Lab: [facility] [address] [place] [phone] Performing Lab: [address] [phone] [place] [address] TSH W/ REFLEX FT4 (STL) THYROTROPIN [UNITS/VOLU ME] IN SERUM OR PLASMA 0.817 u[IU]/mL 0.47 - 5 09/05 Specimen Type: PLASMA No comment entered. Ordering Provider: MARCELO FOSTER A Report Released Date/Time: Aug 30, 2024 04:34 PM Reporting Lab: [facility] [address] [place] [phone] Performing Lab: [facility] [address] [place] [phone] [place] [address] VITAMIN D, 25-HYDROX Y 25-HYDROXYV ITAMIN D3 [MASS/VOLUM E] IN SERUM OR PLASMA 31.2 ng/mL 30 - 96 09/05 Specimen Type: SERUM No comment entered. Ordering Provider: MARCELO FOSTER A Report Released Date/Time: Aug 30, 2024 04:34 PM Reporting Lab: [facility] [address] [place] [phone] Performing Lab: [facility] [address] [place] [address] [phone] [place] [address] COMPREHEN SIVE METABOLIC PANEL CREATININE [MASS/VOLUM E] IN SERUM OR PLASMA 0.94 mg/dL 0.6 - 1.1 08/30 Specimen Type: PLASMA Comment: No hemolysis noted. Ordering Provider: MARCELO FOSTER A Report Released Date/Time: Aug 31, 2023 10:08 AM Reporting Lab: [facility] [address] [place] [phone] Performing Lab: [facility] [address] [place] [phone] [place] [address] COMPREHEN SIVE METABOLIC PANEL UREA NITROGEN [MASS/VOLUM E] IN SERUM OR PLASMA 10.7 mg/dL 9.0 - 25.0 08/30 Specimen Type: PLASMA Comment: No hemolysis noted. Ordering Provider: MARCELO FOSTER A Report Released Date/Time: Aug 31, 2023 10:08 AM Reporting Lab: [facility] [address] [facility] [address] Performing Lab: [facility] [address] [facility] [phone] [facility] COMPREHEN SIVE METABOLIC PANEL GLUCOSE [MASS/VOLUM E] IN SERUM OR PLASMA 79 mg/dL 72 - 99 08/30 Specimen Type: PLASMA Comment: No hemolysis noted. Ordering Provider: MARCELO FOSTER Report Released Date/Time: Aug 31, 2023 10:08 AM Reporting Lab: [facility] [address] [facility] [address] Performing Lab: [facility] [address] [place] [address] [phone] [place] [address] COMPREHEN SIVE METABOLIC PANEL SODIUM [MOLES/VOLU ME] IN SERUM OR PLASMA 140 meq/L 136 - 145 08/30 Specimen Type: PLASMA Comment: No hemolysis noted. Ordering Provider: MARCELO FOSTER A Report Released Date/Time: Aug 31, 2023 10:08 AM Reporting Lab: [facility] [address] [facility] [address] Performing Lab: [facility] [address] [facility] [phone] [facility] COMPREHEN SIVE METABOLIC PANEL POTASSIUM [MOLES/VOLU ME] IN SERUM OR PLASMA 4.3 meq/L 3.5 - 5 08/30 Specimen Type: PLASMA Comment: No hemolysis noted. Ordering Provider: MARCELO FOSTER A Report Released Date/Time: Aug 31, 2023 10:08 AM Reporting Lab: [facility] [address] [facility] [address] Performing Lab: [facility] [address] [facility] [address] [facility] COMPREHEN SIVE METABOLIC PANEL CHLORIDE [MOLES/VOLU ME] IN SERUM OR PLASMA 103 meq/L 98 - 107 08/30 Specimen Type: PLASMA Comment: No hemolysis noted. Ordering Provider: MARCELO FOSTER Report Released Date/Time: Aug 31, 2023 10:08 AM Reporting Lab: [facility] [address] [facility] [address] Performing Lab: [facility] [address] [facility] [address] [facility] COMPREHEN SIVE METABOLIC PANEL CARBON DIOXIDE, TOTAL [MOLES/VOLU ME] IN SERUM OR PLASMA 30 meq/L 22 - 31 08/30 Specimen Type: PLASMA Comment: No hemolysis noted. Ordering Provider: MARCELO FOSTER Report Released Date/Time: Aug 31, 2023 10:08 AM Reporting Lab: [facility] [address] [facility] [address] Performing Lab: [facility] [address] [facility] [address] [facility] COMPREHEN SIVE METABOLIC PANEL CALCIUM [MASS/VOLUM E] IN SERUM OR PLASMA 9.7 mg/dL 8.4 - 10.4 08/30 Specimen Type: PLASMA Comment: No hemolysis noted. Ordering Provider: MARCELO FOSTER A Report Released Date/Time: Aug 31, 2023 10:08 AM Reporting Lab: [facility] [phone] Performing Lab: [facility] [address] [facility] [phone] [facility] COMPREHEN SIVE METABOLIC PANEL PROTEIN [MASS/VOLUM E] IN SERUM OR PLASMA 6.8 g/dL 6 - 8.6 08/30 Specimen Type: PLASMA Comment: No hemolysis noted. Ordering Provider: MARCELO FOSTER A Report Released Date/Time: Aug 31, 2023 10:08 AM Reporting Lab: [facility] [address] [facility] [address] Performing Lab: [facility] [address] [place] [phone] [facility] COMPREHEN SIVE METABOLIC PANEL ALBUMIN [MASS/VOLUM E] IN SERUM OR PLASMA 4.0 g/dL 3.4 - 5 07/11 /2024 Specimen Type: PLASMA Comment: No hemolysis noted. Ordering Provider: MARCELO FOSTER A Report Released Date/Time: Aug 31, 2023 10:08 AM Reporting Lab: [facility] [address] [facility] [phone] Performing Lab: [facility] [address] [facility] [address] [facility] COMPREHEN SIVE METABOLIC PANEL BILIRUBIN.T OTAL [MASS/VOLUM E] IN SERUM OR PLASMA 0.5 mg/dL 0.2 - 1.2 08/30 Specimen Type: PLASMA Comment: No hemolysis noted. Ordering Provider: MARCELO FOSTER A Report Released Date/Time: Aug 31, 2023 10:08 AM Reporting Lab: [facility] [address] [facility] [phone] Performing Lab: [facility] [address] [place] [address] [phone] [place] [address] COMPREHEN SIVE METABOLIC PANEL ALKALINE PHOSPHATASE [ENZYMATIC ACTIVITY/VO LUME] IN SERUM OR PLASMA 55 U/L 40 - 150 08/30 Specimen Type: PLASMA Comment: No hemolysis noted. Ordering Provider: MARCELO FOSTER A Report Released Date/Time: Aug 31, 2023 10:08 AM Reporting Lab: [facility] [address] [facility] [address] Performing Lab: [facility] [address] [place] [address] [phone] [place] [address] COMPREHEN SIVE METABOLIC PANEL ASPARTATE AMINOTRANSF ERASE [ENZYMATIC ACTIVITY/VO LUME] IN SERUM OR PLASMA 18 U/L 5 - 34 08/30 Specimen Type: PLASMA Comment: No hemolysis noted. Ordering Provider: MARCELO FOSTER Report Released Date/Time: Aug 31, 2023 10:08 AM Reporting Lab: [facility] [address] [facility] [address] Performing Lab: [facility] [address] [facility] [address] [facility] COMPREHEN SIVE METABOLIC PANEL ALANINE AMINOTRANSF ERASE [ENZYMATIC ACTIVITY/VO LUME] IN SERUM OR PLASMA 12 U/L 8 - 40 08/30 Specimen Type: PLASMA Comment: No hemolysis noted. Ordering Provider: MARCELO FOSTER Report Released Date/Time: Aug 31, 2023 10:08 AM Reporting Lab: [facility] [address] [facility] [address] Performing Lab: [place] [id number] COMPREHEN SIVE METABOLIC PANEL GLOMERULAR FILTRATION RATE/1.73 SQ M.PREDICTED [VOLUME RATE/AREA] IN SERUM, PLASMA OR BLOOD BY CREATININE- BASED FORMULA (CKD-EPI 2020) 73.9 60 08/30 Specimen Type: PLASMA Comment: No hemolysis noted. Ordering Provider: MARCELO FOSTER Report Released Date/Time: Aug 31, 2023 10:08 AM Reporting Lab: [facility] [address] [facility] [address] Performing Lab: [facility] [address] [place] [phone] [place] [address] FSH (STL-MA) FOLLITROPIN [MOLES/VOLU ME] IN SERUM OR PLASMA 12.2 m[IU]/mL 08/30 Specimen Type: SERUM Comment: Unable to flag abnormal result(s), please refer to reference range(s) below: Adult female reference ranges for FSH: Follicular Phase: 2.5-10.2 mIU/mL Mid-Cycle Peak: 3.1-17.7 mIU/mL Luteal Phase: 1.5-9.1 mIU/mL [place]menopau amanda: 23.0-116.3 mIU/mL Test Performed by [facility], [facility], [address] [place] [address] Raven Hector M.D., Ph.D., Director of Laboratorie s , CLIA [id number] Ordering Provider: MARCELO FOSTER Report Released Date/Time: Aug 31, 2023 10:08 AM Reporting Lab: [facility] [address] [facility] [place] [address] Performing Lab: [facility] [address] [facility] Vital Signs Combined list of inpatient and outpatient Vital Signs from Department of Defense and Veterans Affairs, ranging from 12 months to all on record, depending upon the facility. Vital Sign Value Date Comments Source Peripheral Pulse Rate 73 bpm 07/01/2024 20:30:00 4042T-Xc-L-[facility] Systolic Blood Pressure 118 mm[Hg] 07/02/19 25 20:30:00 6209C-Lv-L-[facility] Diastolic Blood Pressure 73 mm[Hg] 025 20:30:00 5992J-Ka-F-[facility] BP Site Left arm 07/01/2024 20:30:00 9795M-Fh-O-[facility] Respiratory Rate 18 br/min 07/01/2024 20:30:00 5227O-Nv-C-[facility] Mean Arterial Pressure, Cuff (Calc) 88 mm[Hg] 07/01/2024 20:30:00 8553D-Jg-E-[facility] Blood Pressure Manual Automatic 07/01/2024 20:30:00 6766N-Yt-F-[facility] BP Site Right arm 09/10/2024 19:12:00 9359Z-Pu-H-[facility] Respiratory Rate 16 br/min 09/10/2024 19:12:00 2919G-Wp-L-[facility] Systolic Blood Pressure 101 mm[Hg] 09/11/19 25 19:12:00 2856R-Yh-E-[facility] Diastolic Blood Pressure 70 mm[Hg] 025 19:12:00 6013K-Gi-Z-[facility] Peripheral Pulse Rate 81 bpm 09/10/2024 19:12:00 9862D-Gm-J-[facility] Blood Pressure Manual Automatic 09/10/2024 19:12:00 6641T-Jr-Y-[facility] Mean Arterial Pressure, Cuff (Calc) 80 mm[Hg] 09/10/2024 19:12:00 9513X-Hs-K-[facility] SYSTOLIC BLOOD PRESSURE 107 09/14/19 08:48:13 [facility] DIASTOLIC BLOOD PRESSURE 73 025 08:48:13 [facility] PULSE OXIMETRY 100 % 09/13/2024 08:48:13 [facility] WEIGHT 190.2 09/13/2024 08:48:13 [facility] BMI 31 kg/m2 09/13/2024 08:48:13 [facility] PAIN 0 09/13/2024 08:48:13 [facility] TEMPERATURE 98.2 09/13/2024 08:48:13 [facility] PULSE 71 09/13/2024 08:48:13 [facility] RESPIRATION 16 09/13/2024 08:48:13 [facility] SYSTOLIC BLOOD PRESSURE 112 08/31/19 15:18:05 [facility] DIASTOLIC BLOOD PRESSURE 77 025 15:18:05 [facility] PULSE OXIMETRY 97 % 08/30/2024 15:18:05 [facility] WEIGHT 188 08/30/2024 15:18:05 [facility] BMI 30 kg/m2 08/30/2024 15:18:05 [facility] PAIN 0 08/30/2024 15:18:05 [facility] HEIGHT 66 08/30/2024 15:18:05 [facility] TEMPERATURE 97.8 08/30/2024 15:18:05 . [facility] [place] PULSE 84 08/30/2024 15:18:05 [facility] [place] RESPIRATION 18 08/30/2024 15:18:05 [facility] Encounters Combined list of: 1) Encounters from Department of [facility] Affairs facilities going backup to the last 18 months, not all [place] inpatient encounters are included; 2) Encounters from the Department of Defense facilities going backup to 280 months. Location Location Details Encounter Type Encounter Number Reason For Visit Attending Provider ADM Date DC Date Status Disposition Source [address] [place] [address] Gavin B [facility]Fam angélica Practice Non-GME FHI1) OUTPATIENT [id number] nausea when eating or drinkin g/coppe r JOLIE MastersY Zakiya 07/09 Released w/o Limitations [address] [place], [place] [address]B [facility])(F amily Practic e Non-GME FHI1) [address] [place], [place] [address] [facility]Fam angélica Practice Non-GME FHI2) OUTPATIENT [id number] out prosses ing TERRELL Alas 02/25 Released w/o Limitations [address] [place], [place] [address]B [facility])(F amily Practic e Non-GME FHI2) [address] [place], [place] [address] [facility]Fam angélica Practice Non-GME FHI2) OUTPATIENT [id number] hemroid s TIERRA RICHARDSON 09/03 Released w/o Limitations [address] [place], [place] [address]B [facility])(F amily Practic e Non-GME FHI2) [address] [place], [place] [address] [facility])(Fam angélica Practice Non-GME FHI2) OUTPATIENT [id number] uti JIM MCHUGH 09/14 Released w/o Limitations [address] [place], [place] [address]B [facility])(F amily Practic e Non-GME FHI2) [address] [place], [place] [address] [facility]Fam angélica Practice Non-GME FHI2) TELE CONSULT [id number] returni ng call about test results JUAN MIMS 11/[address] [place] [address] [employer] [facility])(F amily Practic e Non-GME FHI2) [address] [place] [address] [employer] [facility]Fam angélica Practice Non-GME FHI1) OUTPATIENT [id number] TB JUAN BERNSTEIN 05/27 Released w/o Limitations [address] [place] [address] [employer] [facility])(F amily Practic e Non-GME FHI1) [address] [place] [address] [employer] [facility]Fam angélica Practice Non-GME FHI1) OUTPATIENT [id number] tb JUAN Moreno. 05/30 Released w/o Limitations [address] [place] [address] [employer] [facility])(F amily Practic e Non-GME FHI1) [address] [place] [address] [employer] [facility] Practice Non-GME FHI2) TELE CONSULT [id number] dariusbeatris wadsworth KAITY MORALES 07/[address] [place] [address] [employer] [facility])(F amily Practic e Non-GME FHI2) [address] [place] [address] [employer] [facility] Practice Non-GME FHI2) OUTPATIENT [id number] MOLES EVALUAT TIERRA SILVA 08/09 Released w/o Limitations [address] [place] [address] Gavin B [facility])(F amily Practic e Non-GME FHI2) [address] [place] [address] [employer] [place] Practice Non-GME FHI1) TELE CONSULT [phone] Ultraso und request - Mervinrobert newsomeKAITY Mtz 02/[address] [place] [address] Gavin B [facility])(F amily Practic e Non-GME FHI1) [address] [place] [address] Gavin B [facility])(Opt ometry) OUTPATIENT [id number] eye exam-nv ript for new glasses CLAIRE CUELLAR 03/10 Released w/o Limitations [address] [place] [address] [employer] [place]O ptometr y) [address] [place] [address] [employer] [place] Non-GME FHI1) OUTPATIENT [id number] TB test - Mervinrobert TIERRA Trinh 04/24 Released w/o Limitations [address] [place] [address] [employer] [facility]F amily Practic e Non-GME FHI1) [address] [place] [address] [employer] [facility] Practice Non-GME FHI1) OUTPATIENT [id number] TB read - Dariusbeatris newsomeTIERRA Sutherland 04/26 Released w/o Limitations [address] [place] [address] [employer] [facility]F amily Practic e Non-GME FHI1) [address] [place] [address] [employer] [place] Practice Non-GME FHI1) TELE CONSULT [id number] meds refill- DEEPAK Rivera 05/[address] [place] [address] Gavin ROS[facility]F amily Practic e Non-GME FHI1) [address] [place] [address] Gavin MALONE [facility]Fam angélica Practice Non-GME FHI2) OUTPATIENT [id number] back pain TIERRA RICHARDSON 10/11 Released w/o Limitations [address] [place] [address] Gavin [facility] [facility]F amily Practic e Non-GME FHI2) [address] [place] [address] Gavin ROS[place] [facility]Opt ometry) OUTPATIENT [id number] [phone] annual eye exam wears glasses VICTORIANO ALVAREZ W 11/07 Released w/o Limitations [address] [place] [address] Gavin MALONE [facility]O ptometr y) [address] [place] [address] Gavin ROSSB [facility])(Fam angélica Practice Non-GME FHI1) TELE CONSULT [id number] Note Needed - TRISTAN Villar 11/[address] [place] [address] Gavin MALONE [facility] [place])(F amily Practic e Non-GME FHI1) [address] [place] [address] Gavin ROSSB [facility])([facility] Team 4) OUTPATIENT [id number] fatigue TIERRA RICHARDSON 04/21 Released w/o Limitations [address] [place] [address] Gavin ROSSB [facility])([facility] Team 4) [address] [place] [address] Gavin ROSSB [facility] Team 4) TELE CONSULT [id number] lab results TIERRA RICHARDSON 04/[address] [place] [address] Gavin ROSSB [facility] Team 4) [address] [place] [address] Gavin ROSSB [facility])(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 [id number] annual pap TRISTAN REED F 07/29 Released w/o Limitations [address] [place] [address] Gavin ROSSB [place]G ynecolo gy) [address] [place] [address] Gavin ROSSB [facility])([facility] Fam Res [place]m [place]) OUTPATIENT [id number] Painful lump in breast [phone] RJ BOWEN W 12/[address] [place] [address] Gavin ROSSB [facility])([facility] Fam Res [place]m [place]) [address] [place] [address] Gavin MALONE [facility] [place])(Sco tt [facility] [place] FAMRES Tm Blue) OUTPATIENT [id number] acid reflux - [id number] RUDI CASTELAN 03/06 Released w/o Limitations [address] [place] [address] Gavin [facility]ISAL [facility]S cott [facility] FAMRES Tm Blue) [address] [place] [address] Gavin [facility])(Sco tt [facility] FAMRES Tm Blue) OUTPATIENT [id number] uti KALPESH DIALLO 04/15 Released w/o Limitations [address] [place] [address] Gavin [facility]S cott [facility] FAMRES Tm Blue) [address] [place] [address] Gavin [facility])(Sco tt [facility] FAMRES Tm Blue) OUTPATIENT [id number] FU per Dr. Ramin vazquez/JAIME Celeste 04/17 Released w/o Limitations [address] [place] [address] Gavin [facility])(S cott [facility] FAMRES Tm Blue) [address] [place] [address] Gavin [facility])(Jon e Managemen t) TELE CONSULT [id number] CC-hosp notific ation SHIV AZEVEDO 10/[address] [place] [address] Gavin [facility])(C ase Managem ent) [address] [place] [address] Gavin [facility])(Jon e Managemen t) TELE CONSULT [id number] CC-post hosp follow up SHIV AZEVEDO 10/[address] [place] [address] Gavin [facility])(C ase Managem ent) [address] [place] [address] Gavin [facility])(Jon e Managemen t) TELE CONSULT [id number] CC: Care Coordin ation (outpat ient PT request ) LAUREN RAMIREZ 10/[address] [place] [address] Gavin [facility])(C ase Managem ent) [address] [place] [address] Gavin [facility])(Sco tt [facility] FAMRES Tm Blue) TELE CONSULT [id number] TERRELL SUN 10/[address] [place] [address] Gavin [facility])(S cott [facility] FAMRES Tm Blue) [address] [place] [address] Gavin [facility])(Jon e Managemen t) TELE CONSULT [id number] CC-care coord SHIV AZEVEDO 10/[address] [place] [address] Gavin [facility])(C ase Managem ent) [address] [place] [address] Gavin [facility])(Sco tt [facility] FAMRES Tm Blue) OUTPATIENT [id number] pap smear.. .[id number] [phone] MARGOT OBRIEN 10/29 Released w/o Limitations [address] [place] [address] Gavin [facility]SB [facility])(S cott OF FAMRES Tm Blue) [address] [place] [address] Gavin ROSSB [facility])(Sco tt [facility] FAMRES Tm Blue) TELE CONSULT [id number] refills - Vitrika s MARGOT OBRIEN 11/[address] [place] [address] Gavin [facility]SB [facility]S cott [facility] FAMRES Tm Blue) [address] [place] [address] Gavin ROSSB [facility])(Sco tt [facility] FAMRES Tm Blue) OUTPATIENT [id number] f/u for stroke [phone] MARGOT OBRIEN 12/01 Released w/o Limitations [address] [place] [address] Gavin ROSSB [facility])(S cott [facility] FAMRES Tm Blue) [address] [place] [address] Gavin B [facility])(Sco tt [facility] FAMRES Tm Blue) TELE CONSULT [id number] Lab results given to patient . HANNAH STEWART 12/[address] [place] [address] Gavin [facility])(S cott [facility] FAMRES Tm Blue) [address] [place] [address] Gavin ROSSB [facility])(Sco tt [facility] FAMRES Tm Blue) OUTPATIENT [id number] stuffy nose cough [phone] MARGOT OBRIEN 11/01 Released w/o Limitations [address] [place] [address] Gavin B [facility])(S cott [facility] FAMRES Tm Blue) [address] [place] [address] Gavin B [facility])(Sco tt [facility] FAMRES Tm Blue) TELE CONSULT [id number] Notes Entered by: MARITZA YIN 22 Apr 2011 1410 ------- ------- ------- ----- TERRELL IRAHETA 04/[address] [place] [address] Gavin B [facility])(S cott [facility] FAMRES Tm Blue) [address] [place], [place] [address]B [facility])(Jon anthony [facility] t) OUTPATIENT [id number] Notes Entered by: SHIV AZEVEDO 25 Apr 2011 0856 ------- ------- ------- ------- -- CC-Hosp notific luis antonio AUSTINNINASHIV 04/[address] [place] [address])(C ase Managem ent) [address] [place] [address])(Sco tt [facility] FAMUnpakt Tm Blue) OUTPATIENT [id number] fu gerd. fu syncope /admiss ion to Memoria l and special ty f/u's HANNAH STEWART 05/02 Released w/o Limitations [address] [place] [address])(S [facility] [employer] Tm Blue) [address] [place] [address])(Sco tt [facility] [employer]) OUTPATIENT [id number] f/u for gastric medicat ion [id number] HANNAH STEWART 06/19 Released w/o Limitations [address] [place] [address])(S [facility] [employer] T[employer] Blue) [address] [place] [address])(Sco tt [facility] Léa [employer] Léo) TELE CONSULT [id number] Notes Entered by: CHAYA ABEL 26 Jul 2011 1554 ------- ------- ------- ------- -- Micare med change and lab request !!! DORENE CRABTREE 07/[address] [place] [address])(S [facility] [employer] T[employer] Blue) [address] [place] [address])(Sco tt [facility] [employer] Blue) TELE CONSULT [id number] Notes Entered by: TERRELL BAHENA 14 Oct 2011 0916 ------- ------- ------- ------- -- Tcon for F/U appt Dr Abrhaam colón ph [phone] cad dmDORENE Voss 10/[address] [place] [address])(S [facility] [employer] Blue) [address] [place] [address])(Sco tt [facility] [employer] T[employer] Blue) OUTPATIENT [id number] f/u after memoria l admissi on. labs abnorma l. recomme nded hematol ogy. 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 [id number] annual pap only - [id number] HALINA BRO 02/07 Released w/o Limitations [address] [place] [address])(G ynecolo gy) [address] [place] [address])(Sco tt [facility] [employer] T[employer] Blue) OUTPATIENT [id number] Hemroid [phone] DORENE CRABTREE N 05/08 Released w/o Limitations [address] [place] [address])(S cott [facility] [employer] HealthRES Tm Blue) [address] [place] [address])(Sco tt [facility] [employer] T[employer] Blue) TELE CONSULT [id number] Notes Entered by: ARMIN CACERES 14 Jun 2012 0855 ------- ------- ------- ------- -- STAT Surgery Gall Bladder /Sweiga rt/618- [phone] DORENE CRABTREE 06/[address] [place] [address])(S cott [facility] FAMRES Tm Blue) [address] [place] [address])(Sco tt [facility] [employer] T[employer] Blue) TELE CONSULT [id number] Notes Entered by: Andrés CASTILLO 18 Jul 2012 1255 ------- ------- ------- ------- -- Med refill Jamilalberto t [id number] DORENE CRABTREE 07/[address] [place] [address] Gavin [facility])(S cott [facility] Blue) [address] [place] [address] Gavin [facility])(Sco tt [facility]) TELE CONSULT [id number] Notes Entered by: EUGENE MEDINA 12 Dec 2012 1409 ------- ------- ------- ------- -- Network Results -SURGER Y 06/19/12 BONITA MEJIA 12/[address] [place] [address] Gavin ROSSB [facility])(S [facility] Blue) [address] [place] [address] Gavin [facility])(Oro [facility]) OUTPATIENT [id number] I have moles that I would like looked at. BONITA MEJIA 01/10 Released w/o Limitations [address] [place] [address] Gavin B [facility])(S [facility]) [address] [place] [address] Gavin [facility])([employer] mat[employer]) OUTPATIENT [id number] visit for: screeni ng exam dermato logical disorde GAVIN Muhammad 02/22 Released w/o Limitations [address] [place] [address] Gavin [facility])(Karen ermatol ogartur) [address] [place] [address] Gavin [facility])([employer]ade mat[employer]) OUTPATIENT [id number] Notes Entered by: SURENDRA PANDYA 04 Mar 2013 1348 ------- ------- ------- ------- -- Suture Removal GAVIN HERNANDEZ 03/04 Released w/o Limitations [address] [place] [address] Gavin MALONE [facility])(D ermatol ogartur) [address] [place] [address] Gavin B [facility])(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 [id number] well woman exam HALINA BRO 04/11 Released w/o Limitations [address] [place] [address] Gavin B [facility])(G ynecolo gy) [address] [place] [address] Gavin [facility])(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 [id number] f/u ultraso und/lab s - [id number] HALINA BRO 04/23 Released w/o Limitations [address] [place] [address] Gavin [facility]ONE [facility]G ynecolo gy) [address] [place] [address] Gavin MALONE [facility])(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 [id number] brenda acosta on - [id number] HALINA BRO 05/08 Released w/o Limitations [address] [place] [address] Gavin [facility]G ynecolo gy) [address] [place] [address] Gavin MALONE [facility])(Sco tt [facility] Fam Res Tm Gold) OUTPATIENT [id number] fatigue /hot flashes x couple of months [id number] EMILY JOHNSON 11/29 Released w/o Limitations [address] [place] [address] Gavin MALONE [facility])(S cott [facility] Fam Res Tm Gold) [address] [place] [address] Gavin [facility]Oro tt [facility] Fam Res Tm Gold) OUTPATIENT [id number] Follow up [id number] EMILY JOHNSON 01/01 Released w/o Limitations [address] [place] [address] Gavin [facility]ONE [facility]S cott [facility] Fam Res Tm Gold) [address] [place] [address] Gavin MALONE [facility])(Oro tt [facility] Fam Res Tm Gold) TELE CONSULT [id number] Notes Entered by: CIRO ROJAS 03 Mar 2014 1049 ------- ------- ------- ------- -- FYI: RADIOLO GY REPORT (LT THUMB) BONITA MEJIA 03/[address] [place] [address] Gavin MALONE [facility])(S cott [facility] Fam Res Tm Gold) [address] [place] [address] Gavin MALONE [facility])(Sco tt [facility] Fam Res Tm Gold) OUTPATIENT [id number] 3month follow up BONITA MEJIA 04/11 Released w/o Limitations [address] [place] [address] Gavin [facility]S cott [facility] Fam Res Tm Gold) [address] [place] [address] Gavin FAISAL [facility])(Sco tt [facility] Fam Res Tm Gold) OUTPATIENT [id number] hemmori ds x 2 wks [id number] BONITA MEJIA 09/08 Released w/o Limitations [address] [place] [address] Gavin VANDANAB [facility])([facility] Fam Res Tm Gold) [address] [place] [address] Gavin [facility])(Oro [facility] Fam Res Tm Green) TELE CONSULT [id number] Notes Entered by: EUGENE MEDINA 13 Oct 2014 1058 ------- ------- ------- ------- -- Network Results -TOD Gutiérrez 10/07/14 BONITA MEJIA 10/[address] [place] [address])([facility] Fam Res Tm Green) [address] [place] [address])([facility] Fam Res Tm Gold) TELE CONSULT [id number] Notes Entered by: USMAN ROSE 22 Dec 2014 1254 ------- ------- ------- ------- -- Rx renewal /dose increas roman - Yris - DANIAL ZAMORA 12/22 Referred for Appointment [address] [place] [address])([facility] Fam Res Tm Gold) [address] [place] [address])(Oro [facility] Fam Res Tm Gold) OUTPATIENT [id number] discuss poss inc on paxil [phone] BONITA MEJIA 12/22 Released w/o Limitations [address] [place] [address])([facility] Fam Res Tm Gold) [address] [place] [address])(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 [id number] Annual WWE [id number] MEREDITH SMITH 05/19 Released w/o Limitations [address] [place] [address])(Ly leo gy) [address] [place] [address])(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) TELE CONSULT [id number] Notes Entered by: BRANDEN SMITH 20 May 2015 1639 ------- ------- ------- ------- -- Test results MARANDA LONGORIA 05/[address] [place] [address])(Ly leo gy) [address] [place] [address])(War rior Op Med Cln Tm A Ad) TELE CONSULT [id number] Notes Entered by: Cj URRUTIA 15 Jul 2015 0845 ------- ------- ------- ------- -- Sx - Multipl e symptom s / Blessin g-Calca kristofer / ext 1864 KVNG VIVAS 07/[address] [place] [address])([facility] Tm A Ad) [address] [place] [address])(War ri[facility] Op Med Cln Tm A Ad) TELE CONSULT [id number] Notes Entered by: Karen ARNOLD 06 Aug 2015 1040 ------- ------- ------- ------- -- Network Results OTOLARY NGOLOGY 07/21/19 16 DB RAND STUART 08/[address] [place] [address])(W arrior Op Med Cln Tm A Ad) [address] [place] [address])(Med ication Refill Clinic) TELE CONSULT [id number] Notes Entered by: ROBLES SULLIVAN 21 Mar 2016 1318 ------- ------- ------- ------- -- Med Renewal / Danyssin g-Calca kristofer / - sgj ISIDRO CARABALLO 03/21 Referred for Appointment [address] [place] [address])([facility]) [address] [place] [address])(War rior Op Med Cln Tm A Ad) OUTPATIENT [id number] annual checkup , labs pending , med refills RAND STUART 04/01 Released w/o Limitations [address] [place] [address])(W [facility] Cl[facility] Tm A Ad) [address] [place] [address])(War rior Op Med Cln Tm A Ad) TELE CONSULT [id number] Notes Entered by: ORIN BABIN 04 May 2016 0713 ------- ------- ------- ------- -- Network Results -ALLERG Y 05/02/16 ARRAND MORALES 05/[address] [place] [address])(W ar[facility] Op Med Cl[facility] Tm A Ad) [address] [place] [address])(War ri[facility] Op Med Cln Tm A Ad) TELE CONSULT [id number] Notes Entered by: DIDIER AHUJA 21 Jun 2016 0754 ------- ------- ------- ------- -- ER f/u (referr al request )/Duy dill/ IMCKEY LANDRY 06/21 Referred for Appointment [address] [place] [address])([facility] Cl[facility] Tm A Ad) [address] [place] [address])(War rior Op Med Cln Tm A Ad) TELE CONSULT [id number] Notes Entered by: [facility] Jones 21 Jul 2016 0956 ------- ------- ------- ------- -- Network Results -GASTRO ENTEROL OGY 07/15/16 COLONOS COPY/EG D [facility] ASHLEY SAINI 07/[address] [place] [address])(W arrior Op Med Cln Tm A Ad) [address] [place] [address])(War rior Op Med Cln Tm A Ad) TELE CONSULT [id number] Notes Entered by: Cj GRIFFITH 20 Jul 2016 1107 ------- ------- ------- ------- -- Network results Gastroe nterolo gy 07/05/16 TB RAND STUART 07/[address] [place] [address])(W ar[facility] Op Med Cln Tm A Ad) [address] [place] [address])(War rior Op Med Cln Tm A Ad) TELE CONSULT [id number] Notes Entered by: Cj GRIFFITH 11 Aug 2016 1304 ------- ------- ------- ------- -- Network results Gastroe nterolo gy 07/15/16 TSB STEPHEN ERICPAVANRoman RAND L. 08/[address] [place] [address])(W arrior Op Med Cln Tm A Ad) [address] [place] [address])(War rior Op Med Cln Tm A Ad) TELE CONSULT [id number] Notes Entered by: DIDIER AHUJA 26 Aug 2016 1032 ------- ------- ------- ------- -- Med Change Request /Blessi ng-Calc arone/6 [phone]. [phone] MICKEY LANDRY 08/26 Referred for Appointment [address] [place] [address])(W ar[facility] Op Med Cln Tm A Ad) [address] [place] [address])(War rior Op Med Cln Tm A Ad) OUTPATIENT [id number] L shoulde r pain x 6 weeks [id number] JENNIFER ACOSTA 02/28 Released w/o Limitations [address] [place] [address])(W ar[facility] Op Med Cln Tm A Ad) [address] [place] [address])(War rior Op Med Cln Tm A Ad) TELE CONSULT [id number] Notes Entered by: Zakiya LOAIZA 08 Mar 2017 1428 ------- ------- ------- ------- -- Physica l Therapy Referra l Inquiry / Blessin Violalcalberto one/ [phone] - MICKEY Avalos 03/08 Referred for Appointment [address] [place] [address])(W arrior Op Med Cln Tm A Ad) [address] [place] [address])(Med ication Refill Clinic) TELE CONSULT [id number] Notes Entered by: BENITO MENDOZA 21 Mar 2017 1008 ------- ------- ------- ------- -- Med Refill - Danyromanajosh lyPrafulEric miner - [phone] XOCHITL CRUZ 03/[address] [place] [address])([facility]) [address] [place] [address])(War rior Op Med Cln Tm A Ad) OUTPATIENT [id number] sx persist , left shoulde r pain / [id number] RAND STUART 04/17 Released w/o Limitations [address] [place] [address])(W arrior Op Med Cln Tm A Ad) [address] [place] [address])(War rior Op Med Cln Tm A Ad) TELE CONSULT [id number] Notes Entered by: ORIN BABIN 28 Apr 2017 1128 ------- ------- ------- ------- -- Network Results -PHYSIC AL THERAPY 04/03/17 SDG RAND STUART 04/[address] [place] [address])(W arrior Op Med Cln Tm A Ad) [address] [place] [address])(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) TELE CONSULT [id number] Notes Entered by: JARAD CALVERT 03 May 2017 1016 ------- ------- ------- ------- -- IUD problem s/SALES AND LEASING AGENT/6 [phone]/[id number] DIOR Morton 05/[address] [place] [address])(Ly leo gy) [address] [place] [address])(Fam angélica Med Tm B Non-AD BCC) TELE CONSULT [id number] Notes Entered by: REX ALLISON 03 May 2017 1354 ------- ------- ------- ------- -- Network results Physica l Therapy 8 MADELEINE CHEN HAIDER R 05/[address] [place] [address])(F amily Med Tm B Non-AD BCC) [address] [place] [address])(War rior Op Med Cln Tm A Ad) TELE CONSULT [id number] Notes Entered by: USMAN ROSE 08 May 2017 1258 ------- ------- ------- ------- -- MRI results - Kwabena miner - - tsg MICKEY LANDRY 05/08 Referred for Appointment [address] [place] [address])(W arrior Op Med Cln Tm A Ad) [address] [place] [address])([place] - Orthopedi cs) OUTPATIENT [id number] Pain in left shoulde r JENN SABA 05/29 Released w/o Limitations [address] [place] [address])(V A - Orthope dics) [address] [place] [address])(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 [id number] WWE, [phone] MANNY MCCLELLAN 10/10 Released w/o Limitations [address] [place] [address])(G ynecolo gy) [address] [place] [address])(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) TELE CONSULT [id number] Notes Entered by: BRANDEN SMITH 19 Oct 2017 1322 ------- ------- ------- ------- -- Test results MEREDITH SMITH 10/[address] [place] [address])(G arturneconiraj gy) [address] [place] [address])(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) TELE CONSULT [id number] Notes Entered by: CHACE BURNS 19 Oct 2017 1433 ------- ------- ------- ------- -- MARANDA Irene 10/19 Released w/o Limitations [address] [place] [address])(G ynecolo gy) [address] [place] [address])([facility] - Orthopedi cs) OUTPATIENT [id number] arie JENN Todd 12/04 Released w/o Limitations [address] [place] [address])(V A - Orthope dics) [address] [place] [address])(War rior Op Med Cln Tm A Ad) TELE CONSULT [id number] Notes Entered by: ROBLES SULLIVAN 26 Jan 2018 1310 ------- ------- ------- ------- -- Med Bridge - Appt Jan / Tania / - PETERSON Alvarado 01/26 Referred for Appointment [address] [place] [address])(W arrior Op Med Cln Tm A Ad) [address] [place] [address])(War rior Op Med Cln Tm A Ad) OUTPATIENT [id number] F/U for medicat ions - decline d Virtual [id number] JEFE MEJIA 02/07 Released w/o Limitations [address] [place] [address])(W arrior Op Med Cln Tm A Ad) [address] [place] [address])(War rior Op Med Cln Tm A Ad) TELE CONSULT [id number] Notes Entered by: ROBLES SULLIVAN 17 Aug 2018 1318 ------- ------- ------- ------- -- SX - Pain / Discomf ort Anal / Rectal Area / UCC Refusal /Lauryn e/ [phone] BONITA Alcala 08/17 Other Not Elsewhere Classified [address] [place] [address])(W arrior Op Med Cln Tm A Ad) [address] [place] [address])(War rior Op Med Cln Tm A Ad) OUTPATIENT [id number] Issue with hemorrh oids [id number] JEFE MERCEDES 08/31 Released w/o Limitations [address] [place] [address])(W arrior Op Med Cln Tm A Ad) [address] [place] [address] Gavin [facility])(War rior Op Med Cln Tm A Ad) TELE CONSULT [id number] Notes Entered by: ROBLES SULLIVAN 28 Jan 2019 1158 ------- ------- ------- ------- -- Med Renewal / Tania / - sgBONITA Sosa 01/28 Medication Refill Forwarded [address] [place] [address])(W arrior Op Med Cln Tm A Ad) [address] [place] [address])(Sco tt [facility] FAMRES Tm Blue) TELE CONSULT [id number] Notes Entered by: DIDIER AHUJA 14 Jan 2020 1034 ------- ------- ------- ------- -- Med Renewal /Shimon guzman/Constanza 18.653. 3652 ROMARIO GILLETTE 01/13 Referred for Appointment [address] [place] [address] Gavin [facility]S cott [facility] FAMRES Tm Blue) [address] [place] [address] Gavin [facility])(Sco tt [facility] FAMRES Tm Blue) OUTPATIENT [id number] 7 virtual appt/es tablish care with new PCM/med refills RJ HIRSCH 01/14 Released w/o Limitations [address] [place] [address] Gavin [facility])(S [facility] FAMRES Tm Blue) [address] [place] [address] Gavin [facility])(Sco tt [facility] Fam Res Tm Green) OUTPATIENT [id number] F2F - Lesion/ mole just appeare d itchy, getting bigger OMKAR AC 10/07 Released w/o Limitations [address] [place] [address] Gavin [facility])(S cott [facility] Fam Res Tm Green) [address] [place] [address])(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 [id number] 2 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 CHANTAL Hansen 10/13 Released w/o Limitations [address] [place] [address] Gavin Magaly [facility])(Ly leo gy) [address] [place] [address] Gavin MALONE [facility])(OF C Proc Clinic) OUTPATIENT [id number] SKIN CLINIC/ SKNI EXAM YRISBONITA Zakiya 11/05 Released w/o Limitations [address] [place] [address] Gavin [facility]O [facility] Proc [facility]) [address] [place] [address] Gavin [facility]Sco tt [facility] Fam Res Tm Green) TELE CONSULT [id number] Notes Entered by: NADIRA SAXENA 07 Jan 2021 1307 ------- ------- ------- ------- -- med renewal /daisy/ [phone] ARACELY Barber 01/07 Referred for Appointment [address] [place] [address] Gavin MALONE [facility])(S cott [facility] Fam Res Tm Green) [address] [place] [address] Gavin [facility])(Sco tt [facility] Fam Res Tm Green) OUTPATIENT [id number] [email or web address] refill meds erinloDEANNA Lemon 01/13 Released w/o Limitations [address] [place] [address] Gavin MALONE [facility])(S cott [facility] Fam Res Tm Green) [address] [place] [address] Gavin [facility]ONE [facility] [place]Sco [place] [facility] [place] [facility] [place]) OUTPATIENT [id number] [place] s exam, GI referYUNI Abraham 04/23 Released w/o Limitations [address] [place] [address] [place] [facility]S cott [facility] [place] [facility] [place]) [address] [place] [address] [place] [facility]Sco tt [facility] [place] [facility] [place]) OUTPATIENT [id number] Wellnes s visit YUNI MELLO 05/04 Released w/o Limitations [address] [place] [address] Gavin ROSSB [facility] [place]S cott [facility] [place] [facility] [place]) [address] [place] [address] [place] [facility]Sco [place] [facility] [place] FAMRES [employer]m [place]) TELE CONSULT [id number] 2 Notes Entered by: SA DARREN MELLO 05 May 2021 0922 ------- ------- ------- ------- -- Pt request s change of GI doctor ARACELY HARRIS 05/05 Released to Self Care [address] [place] [address] Gavin MALONE [facility] [place]S cott [facility] [place] [facility] [place]) [address] [place] [address] Gavin MALONE [facility] [place]Sco tt [facility] [place] [facility] [place]) TELE CONSULT [id number] Notes Entered by: CLAUS SALAZAR 10 Sep 2021 0820 ------- ------- ------- ------- -- FORM DROPPED OFF AT CHART PICKER HOCARL 09/[address] [place] [address] Gavin MALONE [facility] [place]S cott [facility] [place] [facility] [place] [address] [place] [address] [place] MALONE [facility] [place]Sco tt [facility] [place] [facility] [place]) OUTPATIENT [id number] left elbow pain/in OBIE Dozier 02/03 Released w/o Limitations [address] [place] [address] Gavin MALONE [facility] [place]S cott [facility] [place] [facility] [place]) [address] [place] [address] Gavin MALONE [facility] [place]Sco tt [facility] [place] [facility] [place]) TELE CONSULT [id number] 3 Notes Entered by: KALA KITCHEN 18 Mar 2022 1023 ------- ------- ------- ------- -- Sx- L elbow pain/AD [facility]/618 [phone] RICKEY TOBIAS Robert 03/18 Referred for Appointment [address] [place] [address] Gavin FAISAL [facility] [place]S cott [facility] [place] [facility] [place]) [address] [place] [address] Gavin MALONE [facility] [place]Sco tt [facility] [place] [facility] [place]) OUTPATIENT [id number] f2f, follow up on left elbow pain, still having pain HEAVEN MARCOS 03/24 Released w/o Limitations [address] [place] [address] Gavin MALONE [facility] [place]S cott [facility] [place] [facility] [place] [address] [place] [address] Gavin MALONE [facility] [place]Sco tt [facility] [place] [facility] [place]) TELE CONSULT [id number] Notes Entered by: DANNA SCHMIDT 08 Apr 2022 1348 ------- ------- ------- ------- -- Nikki l request / Dr. Marcos/ [phone] DEANGELOJAZIEL JUAN Whipple 04/08 Released to Self Care [address] [place] [address] Gavin MALONE [facility] [place]S [facility] Res [place]) [address] [place] [address] Gavin [facility])(Sco [facility] Res Green) TELE CONSULT [id number] Notes Entered by: Mayelin MENDOZA 05 May 2022 1450 ------- ------- ------- ------- -- Network results PHYSICA L THERAPY /dc sum 023 OBIE TAMAYO 05/05 Released to Self Care [address] [place] [address] Gavin MALONE [facility] [place]S [facility] Res Green) [address] [place] [address] Gavin MALONE [facility] [place])([facility]) OUTPATIENT [id number] SPORTS/ INITIAL -LEFT ELBOW PAIN AMANDEEP, VIDHYA A 05/30 Released w/o Limitations [address] [place] [address] Gavin MALONE [facility] [place])(O [facility]) [facility] OFFICE O/P EST MOD 30 MIN [id number] Diagnos is: ICD-10- CM G43.009 Migrain e w/o aura, not intract able, w/o status migrain osus FOSTER,AR MIDA A 08/30 [facility] Outpatient Encounter [id number] 04/22 [facility] 6130C-Af- C-375 [id number] Family history of maligna nt neoplas m of digesti ve organs, Disorde r of the skin and subcuta neous tissue, unspeci fied,Di sorder of the skin and subcuta neous tissue, unspeci fied,Ot her family history of colon polyps KILLIAN DE GUZMAN 07/01 Discharge Disposition: Home or Self Care 6130C-A f-C- [facility] OFFICE O/P EST MOD 30 MIN [id number] Diagnos is: ICD-10- CM G43.009 Migrain e w/o aura, not intract able, w/o status migrain osus FOSTER,AR MIDA A 08/30 [facility] Outpatient Encounter [id number] VERONICA NGUYEN 09/03 [facility] Outpatient Encounter [id number] 09/03 [facility] N 6130C-Af- C-375 [facility] [id number] Disorde r of the skin and subcuta neous tissue, unspeci fied RAVEN LERMA 09/10 Discharge Disposition: Home or Self Care 6129C-A f-C-375 [facility] SPACER WITHOUT MASK [id number] Diagnos is: ICD-10- CM R06.02 Shortne ss of breath CAROLYN NICHOLS T 09/13 [facility] N [facility] Outpatient Encounter [id number] 09/13 [facility] Outpatient Encounter [id number] 09/17 [facility] N 6130C-Af- C-375Th [facility] [place] [facility] [place] [facility] Visit [id number] 09/17 Discharge Disposition: Home or Self Care 6130C-A f-C-375 [facility] Outpatient Encounter [id number] DASHAWN CAIN 09/27 [facility] Outpatient Encounter [id number] Diagnos is: ICD-10- CM E04.1 Nontoxi c single thyroid nodule NOVA CANALES 10/02 [facility] Outpatient Encounter [id number] Diagnos is: ICD-10- CM 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 Procedure Procedure Type Code Date Perfomer Comments Sourc e No data available for this section Ambulatory Pharmacy Non-Physician Phone Call To Patient/Provider Brief (5-10min) Non-Physician Phone Call To Patient/Provider Brief (5-10min) [id number] 08/[address] [facility] Screening papanicolaou smear; obtaining, preparing and conveyance of cervical or vaginal smear to laboratory 10/[address] [facility] Arthrocentesis Injection Of Shoulder Joint Arthrocentesis Injection Of Shoulder Joint 05/[address] [facility] Non-Physician Phone Call To Patient/Provider Brief (5-10min) Non-Physician Phone Call To Patient/Provider Brief (5-10min) 11145 05/[address] [facility] Non-Physician Phone Call To Patient/Provider Brief (5-10min) Non-Physician Phone Call To Patient/Provider Brief (5-10min) 92344 05/[address] [facility] Non-Physician Phone Call To Patient/Provider Brief (5-10min) Non-Physician Phone Call To Patient/Provider Brief (5-10min) 86166 03/[address] [facility] Non-Physician Phone Call To Patient/Provider Brief (5-10min) Non-Physician Phone Call To Patient/Provider Brief (5-10min) 80289 08/[address] [facility] Non-Physician Phone Call To Patient/Provider Brief (5-10min) Non-Physician Phone Call To Patient/Provider Brief (5-10min) 73484 03/[address] [facility] Non-Physician Phone Call To Patient/Provider Brief (5-10min) Non-Physician Phone Call To Patient/Provider Brief (5-10min) 32725 07/[address] [facility] Non-Physician Phone Call To Patient/Provider Brief (5-10min) Non-Physician Phone Call To Patient/Provider Brief (5-10min) 28856 12/[address] [facility] Destruction Of Premalignant Lesion By Any Method One Lesion Destruction Of Premalignant Lesion By Any Method One Lesion 87843 04/[address] [facility] Gynecologic Services Intrauterine Device (IUD) Insertion Gynecologic Services Intrauterine Device (IUD) Insertion 27522 05/[address] [facility] Test Test 78849 05/[address] [facility] Screening papanicolaou smear; obtaining, preparing and conveyance of cervical or vaginal smear to laboratory 04/[address] [facility] Postoperative Visit, Without Charge Postoperative Visit, Without Charge 45041 03/[address] [facility] Biopsy Skin Biopsy Skin 27678 02/[address] [facility] Non-Physician Phone Call To Patient/Provider Brief (5-10min) Non-Physician Phone Call To Patient/Provider Brief (5-10min) 38316 07/[address] [facility] Non-Physician Phone Call To Patient/Provider Brief (5-10min) Non-Physician Phone Call To Patient/Provider Brief (5-10min) 65567 11/[address] [facility] Non-Physician Phone Call To Patient/Provider Brief (5-10min) Non-Physician Phone Call To Patient/Provider Brief (5-10min) 00982 10/[address] [facility] Case Management, each 15 minutes 04/[address] [facility] Non-Physician Phone Call To Pt/Provider Lengthy (21-30 min) Non-Physician Phone Call To Pt/Provider Lengthy (21-30 min) 64795 04/[address] [facility] Screening papanicolaou smear; obtaining, preparing and conveyance of cervical or vaginal smear to laboratory 11/[address] [facility] Screening papanicolaou smear; obtaining, preparing and conveyance of cervical or vaginal smear to laboratory 07/[address] [facility] Determination Of Refractive State Determination Of Refractive State 41897 11/[address] [facility] Ophthalmological Prior Patient Start Comprehensive Care Ophthalmological Prior Patient Start Comprehensive Care 33412 11/[address] [facility] Skin Test Anergy tuberculin Skin Test Anergy tuberculin 22853 04/[address] [facility] Ophthalmological New Patient Start Comprehensive Care Ophthalmological New Patient Start Comprehensive Care 90617 03/[address] [facility] Determination Of Refractive State Determination Of Refractive State 44370 03/10 CLAIRE CUELLAR Visual Crooks Test Intermediate Examination Visual Crooks Test Intermediate Examination 35959 03/10 CLAIRE CUELLAR Immunization Administration One Vaccine Immunization Administration One Vaccine 90118 05/[address] [facility] Fiberoptic Examinations Anoscopy Fiberoptic Examinations Anoscopy 25935 09/[address] [facility] Fecal Analysis - Occult Blood 07/[address] [facility] Non-Physician Phone Call To Patient/Provider Brief (5-10min) Non-Physician Phone Call To Patient/Provider Brief (5-10min) [address] [facility] Vaginal Wet [place] Vaginal [place] [address] [facility] Vaginal NATHAN Prep Vaginal NATHAN Prep [address] [facility] Waiver services; not otherwise specified (NOS) DEANNA ALVARADO [facility] Acupunct One Or More [place] W/O Stimulation Initial 15 Min Acupunct One Or More [place] W/O Stimulation Initial 15 Min 89698 OBIE WIGGINS Acupunct One Or More [place] W/O Stimulation Initial 15 Min Acupunct One Or More [place] W/O Stimulation Initial 15 Min 18341 VIDHYA BERNSTEIN DRY NEEDLING: Discussed risks to include pain, infection, bleeding, pneumothorax , and failure to relieve pain. Benefits include improved pain and ROM. Pt elected to proceed. Two needles (Seirin 0.30 x 40mm) were applied to the common extensor muscle belly and slowly manipulated with pistoning in a radial pattern. Several LTR's were observed. Tolerated well, no complication s. [facility] ACUPUNCTURE, 1 OR MORE NEEDLES; WITHOUT ELECTRICAL STIMULATION, INITIAL 15 MINUTES OF PERSONAL ONE-ON-ONE CONTACT WITH THE PATIENT 05/31 [facility] ACUPUNCTURE, 1 OR MORE NEEDLES; WITHOUT ELECTRICAL STIMULATION, INITIAL 15 MINUTES OF PERSONAL ONE-ON-ONE CONTACT WITH THE PATIENT 02/04 DoD TELE ASSESS & MGT SRV PROV QUAL NONPHYS HLTH CARE PRO TO EST PAT,PARENT,GUARD NOT ORIG REL ASSESS & MGT SRV PROV W/IN PREV 7 DAYS NOR LEAD ASSESS & MGT SRV/PX W/IN NXT 24 HR/SOON APT;5-10 MIN MED DIS 05/05 DoD WAIVER SERVICES; NOT OTHERWISE SPECIFIED (NOS) 01/18 DoD TELE ASSESS & MGT SRV PROV QUAL NONPHYS HLTH CARE PRO TO EST PAT,PARENT,GUARD NOT ORIG REL ASSESS & MGT SRV PROV W/IN PREV 7 DAYS NOR LEAD ASSESS & MGT SRV/PX W/IN NXT 24 HR/SOON APT;5-10 MIN MED DIS 01/07 DoD WET LISA, INCLUDING PREPARATIONS OF VAGINAL, CERVICAL OR SKIN SPECIMENS 10/14 DoD WAIVER SERVICES; NOT OTHERWISE SPECIFIED (NOS) 01/19 DoD TELE ASSESS & MGT SRV PROV QUAL NONPHYS HLTH CARE PRO TO EST PAT,PARENT,GUARD NOT ORIG REL ASSESS & MGT SRV PROV W/IN PREV 7 DAYS NOR LEAD ASSESS & MGT SRV/PX W/IN NXT 24 HR/SOON APT;5-10 MIN MED DIS 01/28 DoD TELE ASSESS & MGT SRV PROV QUAL NONPHYS HLTH CARE PRO TO EST PAT,PARENT,GUARD NOT ORIG REL ASSESS & MGT SRV PROV W/IN PREV 7 DAYS NOR LEAD ASSESS & MGT SRV/PX W/IN NXT 24 HR/SOON APT;5-10 MIN MED DIS 08/17 DoD SCREENING PAPANICOLAOU SMEAR; OBTAINING, PREPARING AND CONVEYANCE OF CERVICAL OR VAGINAL SMEAR TO LABORATORY 10/10 DoD INJECTION, TRIAMCINOLONE ACETONIDE, NOT OTHERWISE SPECIFIED, 10 MG 05/29 DoD TELE ASSESS & MGT SRV PROV QUAL NONPHYS HLTH CARE PRO TO EST PAT,PARENT,GUARD NOT ORIG REL ASSESS & MGT SRV PROV W/IN PREV 7 DAYS NOR LEAD ASSESS & MGT SRV/PX W/IN NXT 24 HR/SOON APT;5-10 MIN MED DIS 05/08 DoD TELE ASSESS & MGT SRV PROV QUAL NONPHYS HLTH CARE PRO TO EST PAT,PARENT,GUARD NOT ORIG REL ASSESS & MGT SRV PROV W/IN PREV 7 DAYS NOR LEAD ASSESS & MGT SRV/PX W/IN NXT 24 HR/SOON APT;5-10 MIN MED DIS 05/03 DoD TELE ASSESS & MGT SRV PROV QUAL NONPHYS HLTH CARE PRO TO EST PAT,PARENT,GUARD NOT ORIG REL ASSESS & MGT SRV PROV W/IN PREV 7 DAYS NOR LEAD ASSESS & MGT SRV/PX W/IN NXT 24 HR/SOON APT;5-10 MIN MED DIS 03/08 DoD TELE ASSESS & MGT SRV PROV QUAL NONPHYS HLTH CARE PRO TO EST PAT,PARENT,GUARD NOT ORIG REL ASSESS & MGT SRV PROV W/IN PREV 7 DAYS NOR LEAD ASSESS & MGT SRV/PX W/IN NXT 24 HR/SOON APT;5-10 MIN MED DIS 08/26 DoD TELE ASSESS & MGT SRV PROV QUAL NONPHYS HLTH CARE PRO TO EST PAT,PARENT,GUARD NOT ORIG REL ASSESS & MGT SRV PROV W/IN PREV 7 DAYS NOR LEAD ASSESS & MGT SRV/PX W/IN NXT 24 HR/SOON APT;5-10 MIN MED DIS 03/21 DoD TELE ASSESS & MGT SRV PROV QUAL NONPHYS HLTH CARE PRO TO EST PAT,PARENT,GUARD NOT ORIG REL ASSESS & MGT SRV PROV W/IN PREV 7 DAYS NOR LEAD ASSESS & MGT SRV/PX W/IN NXT 24 HR/SOON APT;5-10 MIN MED DIS 07/14 DoD TELE ASSESS & MGT SRV PROV QUAL NONPHYS HLTH CARE PRO TO EST PAT,PARENT,GUARD NOT ORIG REL ASSESS & MGT SRV PROV W/IN PREV 7 DAYS NOR LEAD ASSESS & MGT SRV/PX W/IN NXT 24 HR/SOON APT;5-10 MIN MED DIS 12/22 DoD DESTRUCTION (EG, LASER SURGERY, ELECTROSURGERY, CRYOSURGERY, CHEMOSURGERY, SURGICAL CURETTEMENT), PREMALIGNANT LESIONS (EG, ACTINIC KERATOSES); FIRST LESION 04/11 DoD URINE TEST, BY VISUAL COLOR COMPARISON METHODS 05/08 DoD SCREENING PAPANICOLAOU SMEAR; OBTAINING, PREPARING AND CONVEYANCE OF CERVICAL OR VAGINAL SMEAR TO LABORATORY 04/11 DoD POSTOPERATIVE FOLLOW-UP VISIT, NORMALLY INCLUDED IN THE SURGICAL PACKAGE, INDICATE THAT EVALUATION & MANAGEMENT SERVICE WAS PERFORMED DURING A POSTOPERATIVE PERIOD REASON RELATED ORIGINAL PROCEDURE 03/04 DoD BIOPSY OF SKIN, SUBCUTANEOUS TISSUE AND/OR MUCOUS MEMBRANE (INCLUDING SIMPLE CLOSURE), UNLESS OTHERWISE LISTED; SINGLE LESION 02/22 DoD TELE ASSESS & MGT SRV PROV QUAL NONPHYS HLTH CARE PRO TO EST PAT,PARENT,GUARD NOT ORIG REL ASSESS & MGT SRV PROV W/IN PREV 7 DAYS NOR LEAD ASSESS & MGT SRV/PX W/IN NXT 24 HR/SOON APT;5-10 MIN MED DIS 07/18 DoD TELE ASSESS & MGT SRV PROV QUAL NONPHYS HLTH CARE PRO TO EST PAT,PARENT,GUARD NOT ORIG REL ASSESS & MGT SRV PROV W/IN PREV 7 DAYS NOR LEAD ASSESS & MGT SRV/PX W/IN NXT 24 HR/SOON APT;5-10 MIN MED DIS 11/22 DoD TELE ASSESS & MGT SRV PROV QUAL NONPHYS HLTH CARE PRO TO EST PAT,PARENT,GUARD NOT ORIG REL ASSESS & MGT SRV PROV W/IN PREV 7 DAYS NOR LEAD ASSESS & MGT SRV/PX W/IN NXT 24 HR/SOON APT;5-10 MIN MED DIS 10/13 DoD CASE MANAGEMENT, EACH 15 MINUTES 04/24 DoD TELE ASSESS & MGT SRV PROV QUAL NONPHYS HLTH CARE PRO TO EST PAT,PARENT,GUARD NOT ORIG REL ASSESS & MGT SRV PROV W/IN PREV 7 DAYS NOR LEAD ASSESS & MGT SRV/PX W/IN NXT 24H/SOON APT; 21-30 MIN MED DIS 04/21 DoD SCREENING PAPANICOLAOU SMEAR; OBTAINING, PREPARING AND CONVEYANCE OF CERVICAL OR VAGINAL SMEAR TO LABORATORY 10/29 [facility] SCREENING PAPANICOLAOU SMEAR; OBTAINING, PREPARING AND CONVEYANCE OF CERVICAL OR VAGINAL SMEAR TO LABORATORY 07/29 [facility] DETERMINATION OF REFRACTIVE STATE 11/07 [facility] SKIN TEST; TUBERCULOSIS, INTRADERMAL 04/24 [facility] DETERMINATION OF REFRACTIVE STATE 03/10 [facility] IMMUNIZATION ADMINISTRATION (INCLUDES PERCUTANEOUS, INTRADERMAL, SUBCUTANEOUS, OR INTRAMUSCULAR INJECTIONS); 1 VACCINE (SINGLE OR COMBINATION VACCINE/TOXOID) 05/27 [facility] INFUSION, NORMAL SALINE SOLUTION, 250 CC 10/31 [facility] ANOSCOPY; DIAGNOSTIC, INCLUDING COLLECTION OF SPECIMEN(S) BY BRUSHING OR WASHING, WHEN PERFORMED (SEPARATE PROCEDURE) 09/03 [facility] SUPPLY OF SPECTACLES, EXCEPT PROSTHESIS FOR APHAKIA AND LOW VISION AIDS 05/07 [facility] BLOOD,OCCULT,BY PEROXIDASE ACTIV (EG,GUAIAC),QUAL;FECES ,CONSECUTIVE COLLECTED SPECIMENS W SING DETERMIN,FOR COLORECTAL NEOPLAS SCREEN (IE,PAT PROVIDE 3 CARDS/SING TRIPLE CARD FOR CONSECUTIVE COLLECT) 07/09 [facility] ELECTROCARDIOGRAM, ROUTINE ECG WITH AT LEAST 12 LEADS; TRACING ONLY, WITHOUT INTERPRETATION AND REPORT 06/04 [facility] SCREENING PAPANICOLAOU SMEAR; OBTAINING, PREPARING AND CONVEYANCE OF CERVICAL OR VAGINAL SMEAR TO LABORATORY 03/18 [facility] ELECTROCARDIOGRAM, ROUTINE ECG WITH AT LEAST 12 LEADS; INTERPRETATION AND REPORT ONLY 04/30 [facility] OTHER CARDIOVASCULAR STRESS TEST 04/12 [facility] DIAGNOSTIC ULTRASOUND OF HEART 04/12 [facility] DOPPLER ECHOCARDIOGRAPHY COLOR FLOW VELOCITY MAPPING (LIST SEPARATELY IN ADDITION TO CODES FOR ECHOCARDIOGRAPHY) 04/12 [facility] CARDIOVASCULAR STRESS TEST USING MAXIMAL OR SUBMAXIMAL TREADMILL OR BICYCLE EXERCISE,CONTINUOUS ELECTROCARDIOGRAPHIC MONITORING,AND/OR PHARMACOLOGICAL STRESS;W SUPERVISION,INTERPRETA TION AND REPORT 04/12 [facility] INTRODUCTION OF NEEDLE OR INTRACATHETER, VEIN 04/11 [facility] NONINVASIVE EAR OR PULSE OXIMETRY FOR OXYGEN SATURATION; SINGLE DETERMINATION 04/05 [facility] INFECTIOUS AGENT ANTIGEN DETECTION BY IMMUNOASSAY WITH DIRECT OPTICAL (IE, VISUAL) OBSERVATION; STREPTOCOCCUS, GROUP A 04/01 [facility] PHYSICAL THERAPY RE-EVALUATION 12/20 [facility] APPLICATION OF A MODALITY TO 1 OR MORE AREAS; ULTRASOUND, EACH 15 MINUTES 12/12 [facility] THERAPEUTIC PROCEDURE, 1 OR MORE AREAS, EACH 15 MINUTES; THERAPEUTIC EXERCISES TO DEVELOP STRENGTH AND ENDURANCE, RANGE OF MOTION AND FLEXIBILITY 12/11 [facility] EDUCATIONAL SUPPLIES, SUCH BOOKS, TAPES, AND PAMPHLETS, FOR THE PATIENT'S EDUCATION AT COST TO PHYSICIAN OR OTHER QUALIFIED HEALTH PREP COOK 12/04 [facility] OTHER PROCEDURES FOR CREATION OF ESOPHAGOGASTRIC SPHINCTERIC COMPETENCE 03/07 [facility] LAPAROSCOPY 03/07 [facility] OTHER APPENDECTOMY 01/30 [facility] OTHER OBSTETRIC OPERATIONS 07/20 [facility] EKG (SCALP) 07/20 [facility] OTHER ARTIFICIAL RUPTURE OF MEMBRANES 07/20 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 Social History Type Response Date Comment Sourc e Tobacco smoking status NHIS VA-TOBACCO USE FORMER CIGARETTES 08/30/2024 [facility] History of tobacco use CO-TOBACCO NEVER USED OTHER TYPE 08/30/2024 [facility] History of tobacco use VA-TOBACCO FORMER USER 08/31/2023 [facility] History of tobacco use VA-TOBACCO FORMER USER 10/20/2021 [facility] Sex Representation Female (finding) 11/25/2020 Unknown Organization History of tobacco use VA-TOBACCO FORMER USER 11/26/2019 [facility] Tobacco Frequent/Daily exposure to secondhand smoke in indoor/confined spaces No. Cigarette use: Former-cigarette user. Other Tobacco use: Never-other tobacco user (not cigarettes). Ambulatory Pharmacy Sexual Orientation Ambula tory Pharmacy Gender identity Ambulator y Pharmacy This section is an empty social history section. [facility] Assessment and Plan Combined list of future care activities from Department of Defense and Veterans Affairs facilities (e.g., assessment and plan notes, appointments, orders, and referrals). Additional future care activities may be listed in the Plan of Care section. Result Assessment and Plan Date Source Assessment and Plan Extracted from:Title : [facility] - Shave Biopsy Author: ADAMA NICHOLAS Date: 09/10/24 1. D isorder of the skin and subcutaneous tissue, unspecified Removal of skin lesion on L media epicondyle - Shave biopsy performed - Biopsy sent to pathology - Will discuss results with pt upon result - F/u as needed or if recurrence of lesion Ordered: AP Surgical Pathology Capt Jenny (DO), [facility], Rn Angiography, PGY-1 [facility] [employer] Addendum by RAVEN JACKSON MD on September 12, 2024 14:28:16 CDT I certify that I was physically present with the resident and patient. I have discussed the diagnosis and treatment plan with the resident [id number]. I have reviewed the note and concur with the findings, assessment, and plan. Follow up as listed. All labs/imaging/consults to be followed by the ordering provider. Raven Jackson MD, [facility] Faculty Physician [address] [place] [address], [facility] Gavin [place], [place] Extracted from:Title: Skin lesion LUE/GI ref Author: KILLIAN BOND MD Date: 07/01/24 1. D isorder of the skin and subcutaneous tissue, unspecified Chronic, Uncontrolled Slow, growing, firm, skin colored lesion with fixation <5cm (4mm), with slight elevation. On Consultation with Teach doctors (Mic/Charisma), suspcious for r aised dermatofibroma. Recurrentnature r aises question for incomplete resolution cs. benign fibrous proliferation. Otherwise suspect benign lesion. -referral to procedure clinic. recommend punch biopsy versus shave biopsy. - Return precautions discussed 2. O ther family history of colon polyps Chronic, Uncontrolled Patient with Younger sibling with CRC without mets, negative lymph node involvement. Patient was recommended to recieve Q 3-5 year colonscopy for u nclassified polyps. Patient seen By Dr. Smith Rachael. Patient otherwise with negative red flag findings at this visit. Patient with hiatal hernia requiring surgical repair, would recommend EGD for routine surveillance based on previous GI recommendations. - referral for GI Orders: Referral Request 2.0 - DoD Referral Request 2.0 - [facility] Killian Bond MD PGY-1, Family Medicine [facility], [facility], [place], [place] Addendum by BARBARA HALL MD, Family Medicine on July 08, 2024 13:48:59 CDT I was present and available in the family medicine clinic during the patient's appointment.? The case was discussed with me and I agree with the assessment and plan as documented. ? [facility] Future Appointments Appointment Date: 10/16/2024 08:50:00 AM Scheduled Provider: BESSIE BUCK MD Location: [address] [place] [address] Appointment Type: PC FTR 10/04/2024 [id number] [place] Plan of Care List of future care activities from [facility] facilities. Additional future care activities may be listed in the Assessment and Plan section. Date/Time Care Activity Care Activity Detail Facili ty 11/01/2024 AMBULATORY - MEDICINE AMBULATORY - MEDICI [facility] Functional Status Combined list of recent functional and cognitive assessments recorded at Department of [facility] and [facility] [place] Functional [place] Measurement (FIM) Scale: 1 = Total Assistance (Subject = 0% +), 2 = Maximal Assistance (Subject = 25% +), 3 = Moderate Assistance (Subject = 50% +), 4 = Minimal Assistance (Subject = 75% +), 5 = Supervision, 6 = Modified [place] (Device), 7 = Complete [place] (Timely, Safely). Assessment Date/Time Source Assessment Type Assessment Skill Assessment Score Assessment Details No data available for this section
--- OUTSIDE RECORDS SUMMARY | 2024-10-04 18:11 | XMS_ITS | Encounter Summary ---
Author Name [facility] [place] Organization [facility] [place] Address [address] [place] [address] Care Team Providers Care Prevocational/Rehabilitation Counselor Name Role Phone JOESPH WILLARD Primary Care Provider Unavailabl e Selected Encounter This section includes the information on record at [place] for the Encounter. Date/Time Encounter Type Encounter Description Reason Provider Source Sep 03, 2024 07:26 AM Outpatient Encounter COMMUNITY CARE CONSULT KRISTY MALCOLM Encounter Template Text not used by [place] Plan of Treatment: Future Appointments (+ 6 months) and Future Tests (+/- 45 days) The Plan of Treatment section includes future care activities for the patient from all [place] treatmentfacilities. This section includes future appointments and future orders which are active, pending or scheduled. Future Appointments This section includes appointments that were scheduled to occur 6 months from the date of the Encounter, up to a maximum of 20 appointments. The data comes from all [place] treatment facilities. Appointment Date/Time Appointment Type Appointme nt Facility Name Sep 13, 2024 09:00 AM AMBULATORY - NONE [facility] Sep 13, 2024 10:00 AM AMBULATORY - MEDICINE [facility] Sep 24, 2024 03:30 PM AMBULATORY - NONE [facility] Nov 01, 2024 09:30 AM AMBULATORY - MEDICINE [facility] Active, Pending, and Scheduled Orders This section includes a listing of several types of active, pending, and scheduled orders, including clinic medications orders, diagnostic test orders, procedure orders and consult orders; where the start date of the order is 45 days before the date of the Encounter or 45 days after the date of theEncounter. The data comes from all [place] treatment facilities. Test Date/Time Test Type Test Details Facility Name Aug 30, 2024 04:41 PM Consult Order [facility] SLEEP STUDY Cons [employer] Choice [facility] Oct 02, 2024 12:00 AM Laboratory - Chemi stry Order TSH (MA-PB) GOLD/RED SST SERUM SP [facility] Oct 02, 2024 12:00 AM Laboratory - Chemi stry Order FREE T4 (MA-PB) GOLD/RED SST SERUM SP [facility] Oct 02, 2024 12:00 AM Laboratory - Chemi stry Order TOTAL T3 (STL-PB) GREEN LI-HEP PLASMA SP [facility] Oct 02, 2024 12:00 AM Laboratory - Chemi stry Order PT/INR NEW (STL-MA) BLOOD PLASMA SP [facility] Oct 02, 2024 08:41 AM Consult Order ENDO THYRO ID NEEDLE ASPIRATION BIOPSY OUTPATIENT [facility] Cons [employer] Driver's [facility] Oct 04, 2024 07:49 AM Consult Order [facility] RAD INTERVENT Cons [employer] Driver[employer] Choice [facility] Lab Results: +/- 30 days of the encounter This section includes the Chemistry and Hematology Lab Results on record with [place] for the patient. Radiology Reports and Pathology Reports are provided separately, in subsequent sections. Lab Results This section contains the Chemistry/Hematology Results that were resulted 30 days before or 30 daysafter the date of the Encounter. Date/Time Source Result Type Result - Unit Interpretation Reference Range Specimen Type Comment Sep 05, 2024 10:46 AM [facility] FSH (STL-MA) SERUM Specimen Type: SERUM Comment: Unable to flag abnormal result(s), please refer to reference range(s) below: Adult female reference ranges for FSH: Follicular Phase: 2.5-10.2 mIU/mL Mid-Cycle Peak: 3.1-17.7 mIU/mL Luteal Phase: 1.5-9.1 mIU/mL Postmenopausal: 23.0-116.3 mIU/mL Test Performed by [facility], [facility], [address] [place] [address] Dave Hector M.D., Ph.D., Director of Laboratories , CLIA [id number] Ordering Provider: JOESPH WILLARD Report Released Date/Time: Aug 30, 2024 04:43 PM Reporting Lab: [facility] [address] [address] Performing Lab: [facility] [address] [facility] FSH (STL-MA) 34.0 m[IU]/mL Sep 05, 2024 10:46 AM [facility] ESTRADIOL SERUM Specimen Type: SERUM Comment: [...] males, pre-pubertal children, and hypogonadal/post-menopausal females), the [facility] Estradiol, Ultrasensitive, LCMSMS assay is recommended (order code 66734). Please note: Patients being treated with the drug fulvestrant [Faslodex(R)] have demonstrated significant interference in immunoassay methods for estradiol measurement. The cross reactivity could lead to falsely elevated estradiol test results leading to an inappropriate clinical assessment of estrogen status. [employer] order code [id number], Ultrasensitive LC/MS/MS demonstrates negligible cross reactivity with fulvestrant. Test Performed by [facility], [address] [place], [place] Dave Hector M.D., Ph.D., Director of Laboratories , CLIA [id number] Ordering Provider: JOESPH WILLARD Report Released Date/Time: Aug 30, 2024 04:43 PM Reporting Lab: [facility] [address] [facility] [phone] Performing Lab: [facility] [address] [facility] [address] ESTRADIOL 97 pg/mL Sep 05, 2024 10:46 AM [facility] COMPREHENSIVE METABOLIC PANEL PLASMA Specimen Type: PLASMA Comment: No hemolysis noted. Ordering Provider: JOESPH WILLARD Report Released Date/Time: Aug 30, 2024 04:34 PM Reporting Lab: [facility] [address] [facility] [address] Performing Lab: [facility] [address] [place] [phone] CREATININE 0.74 mg/dL 0.6-1.1 UREA NITROGEN 20.0 [...] 97.9 >60 Sep 05, 2024 10:46 AM [facility] LIPID PANEL (STL) PLASMA Specimen Type: PLASM A Comment: No hemolysis noted. Ordering Provider: JOESPH WILLARD Report Released Date/Time: Aug 30, 2024 04:34 PM Reporting Lab: [facility] [address] [facility] [address] Performing Lab: [facility] [address] [place] [phone] CHOLESTEROL 213 mg/dL H 0-200 TRIGLYCERIDE 132 mg/dL 0-150 CALCULATED LDL 132 mg/dL HDL(New) 55 mg/dL >40 Sep 05, 2024 10:46 AM [facility] CBC BLOOD Specimen Type: BLOOD No comment entered. Ordering Provider: JOESPH WILLARD Report Released Date/Time: Aug 30, 2024 04:34 PM Reporting Lab: [facility] [address] [place] [phone] Performing Lab: [address] [address] WBC 7.4 10*3/uL 3.6-11.2 RBC 4.58 10*6/uL [...] 0.00-0. 20 Sep 05, 2024 10:46 AM [facility] HGA1C BLOOD Specimen Type: BLOOD No comment entered. Ordering Provider: JOESPH WILLARD Report Released Date/Time: Aug 30, 2024 04:34 PM Reporting Lab: [facility] [address] [place] [phone] Performing Lab: [address] [address] HGA1C 5.4 4.0-6.0 Sep 05, 2024 10:46 AM [facility] TSH W/ REFLEX FT4 (STL) PLASMA Specimen Type: PLASMA No comment entered. Ordering Provider: JOESPH WILLARD Report Released Date/Time: Aug 30, 2024 04:34 PM Reporting Lab: [facility] [address] [address] Performing Lab: [facility] [address] [address] TSH 0.817 u[IU]/mL 0.47-5 Sep 05, 2024 10:46 AM [facility] VITAMIN D, 25-HYDROXY SERUM Specimen Type: SE RUM No comment entered. Ordering Provider: JOESPH WILLARD Report Released Date/Time: Aug 30, 2024 04:34 PM Reporting Lab: [facility] [address] [place] [phone] Performing Lab: [facility] [address] [place] [phone] VITAMIN D, 25-HYDROXY 31.2 ng/mL 30-96 Radiology [...] the Encounter. The data comes from all [place] treatment facilities. Date/Time Radiology Report Provider Source Sep 24, 2024 02:07 PM US THYROID (NECK SOFT-TISSUE): CON DOMINIQUE [id number] -[id number] F Exm Date: SEP 24, 2024@14:07 Req Phys: JOESPH WILLARD Pat Loc: [facility]-CT FLASH AM (Req'g Loc) Img Loc: [facility]-ULTRASOUND [facility] Service: Unknown Screen: Patient answered no [facility], [facility] [address] [place] [address] (Case [id number] COMPLETE) US THYROID (NECK SOFT-TISSUE) (US Detailed) CPT:72726 Reason for Study: incidental finding right sided thyroid nodule on ct chest Clinical History: Report Status: Verified Date Reported: SEP 24, 2024 Date Verified: SEP 24, 2024 Egg Worker E-Sig:/ES/MANN FELIPE Report: Exam: US THYROID (NECK SOFT-TISSUE) Case: [id number] History: Technique: Real-time ultrasound examination of the [...] findings. Primary Interpreting Staff: MANN FELIPE, RADIOLOGIST (Egg Worker) Primary Interpreting Resident: GOPAL YU, Resident Physician /MANN HENNING [facility] Sep 13, 2024 08:[address] THORAX, DIAGNOS TIC W/O CONTRAST: TOPDALLIN,CON RADHA [id number] -[id number] F Exm Date: SEP 13, 2024@08:30 Req Phys: JOESPH WILLARD Loc: -ST CLR PACT 6 PCP (Latonya'ly Lo Img Loc: [facility]-CT IMAGING [facility] Service: Unknown Screen: Patient answered no [facility], [facility] [address] [place] [address] (Case [id number] COMPLETE) CT THORAX, DIAGNOSTIC W/O CONTRAS(CT Detailed) CPT:24775 Reason for Study: wheezing, AC Clinical History: Responsible Attending: Joesph Willard Attending Contact Number: ext [phone] Resident Contact Number: 49 yr old F with remote hx of covid, non smoker, exposure to second hand smoke, has noted dyspnea with exertion for more than 6 months. 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 Allergies listed in CPRS chart: TERBUTALINE, PHENOBARBITAL, SHELLFISH Creatinine: CREATININE 0.94 mg/dL 08/31/2023 10:11 /eGFR: STL EGFR (within one year). CREATININE 0.94 mg/dL (08/31/23 10:11) Wt: 188 lb [85.28 kg] (08/30/2024 15:18) History of: Renal failure, chronic or acute renal disease: NO Report Status: Verified Date Reported: SEP 13, 2024 Date Verified: SEP 13, 2024 Egg Worker E-Sig:/ES/JIM CAIN Report: DATE: 09/13/2024 8:30 AM EXAM: CT THORAX, DIAGNOSTIC W/O CONTRAST ACCESSION NUMBERS: [id number] HISTORY: wheezing, AC IV contrast: No. Comparison: [...] considered in one year. Alissa Cobos MD (Trauma Doctor) I, Jim Cain, have reviewed the images and report and concur with these findings. Primary Interpreting Staff: JIM CAIN MD (Egg Worker) Primary Interpreting Resident: ALISSA COBOS, Resident Physician /JIM YUSUF [facility] Encounter Notes: All associated encounter notes This section contains the clinical notes associated to the Encounter. Date/Time Encounter Note(s) Provider Source Sep 03, 2024 07:26 AM NONVA NOTE: LOCAL TITLE: COMMUNITY CARE-CARE COORDINATION PLAN NOTE [address] TITLE: NONVA NOTE DATE OF NOTE: SEP 03, 2024@07:26 ENTRY DATE: SEP 03, 2024@07:26:43 AUTHOR: KRISTY MALCOLM EXP COSIGNER: URGENCY: STATUS: COMPLETED Community Care Consult: sleep study Consult No: [id number] [facility] Referral #: Chief Complaint: snoring Patient Admitted? No Level of Care Coordination Moderate Care Coordination was determined from: Chart Review Facility Community Care Office Contact Care Coordination Point of Contact: Kristy Malcolm RN Services: Basic Care Coordination Services Monitoring and coordination of Rehab/PT Services Direct communication to referring provider Care management, if appropriate Plan: preferred provider [facility] sleep Med.. Dr Ferny Villa Sleep Plan: Diagnostic Testing Requested: Procedure (1): In lab polysomnogram with CPAP titration Fax authorization to provider. Follow up with provider for scheduling update. Follow up with after appointment. Assess if any other care is needed and f/u quarterly as needed with and throughout EOC. Referral Number: [id number] /es/ KRISTY MALCOLM RN REGISTERED NURSE Signed: 09/03/2024 07:29 KRISTY MALCOLM [facility]
--- NOTE | 2024-10-04 18:23 | ED.GENADULT ---
HPI - General Adult General Chief complaint: Skin/Abscess/Foreign Body Stated complaint: painful rash Time Seen by Provider: 10/04/24 18:35 Source: patient Mode of arrival: ambulatory Limitations: no limitations History of Present Illness HPI narrative: 48y/o female presented for complaint of painful red rash to the right upper abdomen. First noticed today at 3:00 p.m.. Denies lip, tongue, or throat swelling, shortness of breath or wheezing. Denies changes to soap, detergent, lotion, or any other exposures. No one else in the house or any contacts with similar symptoms. denies itching or drainage. Related Data Home Medications ?Medication ?Instructions ?Recorded ?Confirmed ?Last Taken ?Type omeprazole 40 mg capsule,delayed 40 mg PO DAILY 07/22/22 07/22/22 Unknown History release Lactobacillus acidophilus 10 100 mmu cells PO DAILY 03/09/24 Unknown History billion cell capsule (NewFlora) cholecalciferol (vitamin D3) 50 2,000 unit PO DAILY 03/09/24 Unknown History mcg (2,000 unit) capsule (D3-2000) loratadine 10 mg tablet (Claritin) 10 mg PO DAILY 03/09/24 Unknown History Allergies Allergy/AdvReac Type Severity Reaction Status Date / Time iohexol (From contrast - CT, Allergy Severe Anaphylaxis Verified 03/09/24 09:40 X-RAY) shellfish derived Allergy Severe Anaphylaxis Verified 03/09/24 09:40 phenobarbital AdvReac Severe Stopped Verified 03/09/24 09:40 Breathing terbutaline (From Brethine) AdvReac Intermediate Palpitation Verified 03/09/24 09:40 s Review of Systems Review of Systems: CONSTITUTIONAL: Denies body aches, fever, chills, or sweats. EYES: Denies visual changes, redness, or discharge. ENT: Denies rhinorrhea, congestion CARDIOVASCULAR: Denies chest pain, palpitations, or edema. RESPIRATORY: Denies cough or dyspnea. GASTROINTESTINAL: Denies abdominal pain, nausea, vomiting, or diarrhea. SKIN: reports painful rash MUSCULOSKELETAL: Denies back pain, joint pain, or myalgia. NEUROLOGIC: Denies headache, numbness, tingling, or weakness. PMFSH Comments At time of signature, I have reviewed and agree with nursing past medical, surgical, social and family history unless otherwise noted. Please see nursing chart for further information. There is no relevant family history pertinent to the presenting complaint Exam Narrative: GENERAL: Well-appearing HEAD: Normocephalic, atraumatic. EYES: conjunctivae clear, and EOMI. ENT: Mucous membranes moist. Oropharynx without edema, erythema or lesions. NECK: Supple. No lymphadenopathy CHEST: Clear to auscultation. HEART: Regular rate and rhythm. SKIN: Warm, dry. erythematous slightly raised papules to right abdomen; tender, no drainage. c/w zoster. NEURO: Alert and oriented x3. Course Course Emergency Course: Patient is aware of diagnosis, understands and agrees to treatment plan. Anticipatory guidance given. Patient agrees to follow-up as directed and is aware of reasons to seek care at the emergency department. Portions of this record may have been created with voice recognition software Level of Care: Express Care Visit Vital Signs Vital signs: Vital Signs Temperature 98.5 F 10/04/24 18:08 Pulse Rate 110 H 10/04/24 18:08 Respiratory Rate 14 10/04/24 18:08 Blood Pressure 114/75 10/04/24 18:08 Pulse Oximetry 100 10/04/24 18:08 Oxygen Delivery Room Air 10/04/24 18:08 Temperature 98.5 F 10/04/24 18:08 Pulse Rate 110 H 10/04/24 18:08 Respiratory Rate 14 10/04/24 18:08 Blood Pressure 114/75 10/04/24 18:08 Pulse Oximetry 100 10/04/24 18:08 Oxygen Delivery Room Air 10/04/24 18:08 Reviewed Medical Decision Making MDM Narrative Medical decision making narrative: Discussed physical exam findings c/w zoster right abdomen. Advised supportive measures and signs/symptoms to go to the ER. Pt is appropriate for outpt treatment and f/u. Differential Diagnosis Differential Diagnosis: Viral exanthema, contact dermatitis, allergic dermatitis, eczema, urticaria, insect bites, impetigo, tinea, folliculitis Vital Signs Vital Signs: Vital Signs Temperature 98.5 F 10/04/24 18:08 Pulse Rate 110 H 10/04/24 18:08 Respiratory Rate 14 10/04/24 18:08 Blood Pressure 114/75 10/04/24 18:08 Pulse Oximetry 100 10/04/24 18:08 Oxygen Delivery Room Air 10/04/24 18:08 Temperature 98.5 F 10/04/24 18:08 Pulse Rate 110 H 10/04/24 18:08 Respiratory Rate 14 10/04/24 18:08 Blood Pressure 114/75 10/04/24 18:08 Pulse Oximetry 100 10/04/24 18:08 Oxygen Delivery Room Air 10/04/24 18:08 Discharge Plan Discharge Clinical Impression: Herpes zoster Patient Disposition: Home Condition: Stable Instructions: Antibiotic Form, Shingles (ED) Patient Language: Croatian Prescriptions: New valacyclovir 1 gram tablet 1,000 mg PO Q8H 7 Days Qty: 21 0RF No Action omeprazole 40 mg capsule,delayed release(DR/EC) 40 mg PO DAILY NewFlora 10 billion cell capsule 100 mmu cells PO DAILY loratadine [Claritin] 10 mg tablet 10 mg PO DAILY cholecalciferol (vitamin D3) [D3-2000] 50 mcg (2,000 unit) capsule 2,000 unit PO DAILY prednisone 20 mg tablet See Rx Instructions .ROUTE .COMPLEX Qty: 9 0RF Rx Instructions: 40 mg daily x3 days, 20 mg daily x3 days doxycycline monohydrate 100 mg tablet 100 mg PO BID 10 Days Qty: 20 0RF albuterol sulfate 90 mcg/actuation HFA aerosol inhaler 2 puff inhalation QID PRN (Reason: shortness of breath or wheezing) Qty: 6.7 0RF (DME) Aerochamber MV Spacer See Rx Instructions .Route Qty: 1 0RF Rx Instructions: As directed codeine-guaifenesin 10-100 mg/5 mL liquid 5 ml PO Q6H 5 Days Qty: 100 0RF Follow-up/Referrals: PROSPECT, [Primary Care Provider] - Time of Disposition: 18:44
== END 2024-10-04 18:47 | disposition home or self-care (01) ==
PROVIDERS: Emergency Provider Nurse Practitioner Family
DX: B02.9 Zoster without complications (principal); K21.9 Gastro-esophageal reflux disease without esophagitis
CPT/HCPCS: 99213; G0463